=== PATIENT | female | born 1985 | race Two or more races ===

== ENCOUNTER 2024-10-13 16:29 | Inpatient (IN) | payer MEDICAID, SELFPAY ==
[2024-10-13 16:52] VITALS: BP 142/89; PULSE 79; RESP 18; TEMP 36.9; O2SAT 100; BMI 38.2
--- NOTE | 2024-10-13 17:29 | EDRME_ITS ---
Rapid Medical Screening Exam RME Arrival date/time: 10/13/24 16:29 39-year-old female presents to the emergency department today after being sent here by PCP. Patient was sent here for renal biopsy to rule out nephrotic syndrome. Patient reports history of lower extremity swelling and upper extremity swelling with proteinuria Chief Complaint: General Adult/Replaced By [facility] Complain Time Seen by Provider: 10/13/24 17:15 Vital signs: Vital Signs Temperature 98.5 F 10/13/24 16:52 Pulse Rate 79 10/13/24 16:52 Respiratory Rate 18 10/13/24 16:52 Blood Pressure 142/89 H 10/13/24 16:52 Pulse Oximetry (%) 100 10/13/24 16:52 Oxygen Delivery Method Room Air 10/13/24 16:52
[2024-10-13 17:56] LABS: Basophils # (Auto) 0.1 Thou/mm3 (0.0-0.2); Basophils % (Auto) 1 % (0-2.5); Eosinophils # (Auto) 0.3 Thou/mm3 (0.0-0.5); Eosinophils % (Auto) 3 % (0-10); Hematocrit 44.9 % (36.0-46.0); Hemoglobin 14.9 g/dL (12.0-16.0); Immature Granulocytes % (Auto) 0 % (0-0); Immature Granulocytes Auto 0.01 Thou/mm3 (0.00-0.00); Lymphocytes # (Auto) 2.6 Thou/mm3 (1.0-4.8); Lymphocytes % (Auto) 29 % (10-50); Mean Corpuscular HGB Conc 33.2 g/dl (31.0-37.0); Mean Corpuscular Hemoglobin 28.2 pg (25.0-35.0); Mean Corpuscular Volume 85 fL (80-100); Monocytes # (Auto) 0.4 Thou/mm3 (0.0-0.8); Monocytes % (Auto) 5 % (0-12); Neutrophils # (Auto) 5.8 Thou/mm3 (1.8-7.7); Neutrophils % (Auto) 63 % (37-80); Nucleated Red Blood Cell % 0 /100 WBC (0); Platelet Count 236 Thou/mm3 (140-440); Red Blood Count 5.29 Miln/mm3 (4.00-5.20); White Blood Count 9.2 Thou/mm3 (3.6-11.0)
[2024-10-13 18:13] LABS: Alanine Aminotransferase 17 U/L (10-49); Albumin, Serum 3.2 gm/dL (3.5-5.0); Albumin/Globulin Ratio 1.3 (1.2-2.2); Alkaline Phosphatase 67 U/L (46-116); Anion Gap 4 (7-16); Aspartate Amino Transferase 16 U/L (0-34); BUN/Creatinine Ratio 22 Ratio (12-20); Bilirubin,Total 0.4 mg/dL (0.3-1.2); Blood Urea Nitrogen 11 mg/dL (9-23); Calcium 8.3 mg/dL (8.3-10.6); Calcium (Corrected) 8.9 mg/dL (8.5-10.1); Carbon Dioxide 30.6 mMol/L (20.0-31.0); Chloride 104 mMol/L (98-107); Creatinine (Component) 0.5 mg/dL (0.6-1.3); Estimated Creatinine Clearance 181.1 mL/min (>60); Globulin 2.5 gm/dL (2.3-3.5); Glucose 88 mg/dL (74-106); Osmolality,Calculated 275 (275-295); Potassium 3.4 mMol/L (3.4-5.1); Sodium 139 mMol/L (136-145); Total Protein 5.7 gm/dL (5.7-8.2); eGFR > 60 See Note
[2024-10-13 18:59] LABS: Collection Type, Urine Clean Catch
--- NOTE | 2024-10-13 19:09 | PD.EDADULT ---
ED General RME/HPI General Chief complaint: General Adult/Misc Complain Stated complaint: SENT BY PMD FOR KIDNEY BIOPSY Time Seen by Provider: 10/13/24 17:15 Arrival date/time: 10/13/24 16:29 Limitations: no limitations RME / HPI RME / HPI narrative: 10/13/24 16:29 39-year-old female presents to the emergency department today after being sent here by PCP. Patient was sent here for renal biopsy to rule out nephrotic syndrome. Patient reports history of lower extremity swelling and upper extremity swelling with proteinuria Related Data Home Medications ?Medication ?Instructions ?Recorded ?Confirmed No Known Home Medications 10/14/24 10/14/24 Allergies Allergy/AdvReac Type Severity Reaction Status Date / Time No Known Allergies Allergy Verified 10/13/24 16:29 Review of Systems Constitutional Constitutional: Denies fatigue and Denies fever(s) Cardiovascular Cardiovascular: Denies chest pain and Denies dyspnea Respiratory Respiratory: Denies cough and Denies dyspnea Gastrointestinal Gastrointestinal: Denies abdominal pain and Denies vomiting Integumentary/Breasts Skin/Breast: Reports skin swelling Neurologic Neurologic: Reports as per HPI Endocrine Endocrine: Denies fatigue Past Medical History Social History SMOKING STATUS: Never smoker ED Exam General Limitations: Present no limitations General appearance: Present alert and in no apparent distress Head Head exam: Present atraumatic and normocephalic Eye Eye exam: Present normal appearance, PERRL and EOMI; Absent scleral icterus or periorbital swelling ENT ENT exam: Present normal exam, normal oropharynx and TM's normal bilaterally Neck Neck exam: Present normal inspection Chest Chest inspection: Present normal inspection and symmetric chest wall rise Respiratory Respiratory exam: Present normal lung sounds bilaterally; Absent respiratory distress Cardiovascular Cardiovascular exam: Present regular rate, +S1 and +S2 Abdominal Exam Abdominal exam: Present soft; Absent distention or tenderness Extremities Exam Extremities exam: Present normal inspection and full ROM Back Exam Back exam: Present normal inspection and full ROM Neurological Exam Neurological exam: Present alert Psychiatric Psychiatric exam: Present normal affect Skin Skin exam: Present warm, dry and normal color Course Quality Measures none Orders Category Date Time Status COVID-19 Screening Questionnaire NOW Care 10/13/24 20:33 Active Decision to Admit X1 Care 10/13/24 20:32 Completed Insert IV NOW Care 10/13/24 17:21 Active NPO after Midnight ONCE Care 10/13/24 17:53 Active Consult to Nephrology Stat Cons 10/13/24 17:[address] biopsy renal RT Stat Exams 10/13/24 17:52 Ordered CBC Stat Lab 10/13/24 17:38 Completed CMP [Comprehensive Metabolic Panel] Stat Lab 10/13/24 17:38 Completed Creatinine,Random Urine Stat Lab 10/13/24 18:47 Completed Protein Total, Random Urine Stat Lab 10/13/24 18:47 Completed Urinalysis, C/S if Indicated Stat Lab 10/13/24 18:47 Completed Vital Signs Vital signs: Vital Signs Temperature 98.5 F 10/13/24 16:52 Pulse Rate 79 10/13/24 16:52 Respiratory Rate 18 10/13/24 16:52 Blood Pressure 142/89 H 10/13/24 16:52 Pulse Oximetry (%) 100 10/13/24 16:52 Oxygen Delivery Method Room Air 10/13/24 16:52 Pulse ox 100% on room air, within normal limits. [facility] Patient data External records reviewed:: [facility] previous records Clinical information provided by:: patient Social determinants that could affect healthcare access:: none Patient has the following chronic illnesses:: Hypertension. How is presenting disease/condition affected by chronic disease/condition?: exacerbated by Evaluation data The following diagnostics were reviewed and interpreted by me:: lab results and radiology exam(s) Lab and/or radiology exams considered but not ordered:: Considered not ordered. Interpretation Summary: Proteinuria. Medications Medications considered but not ordered:: Considered not ordered. Medication administrations:: Medication Administration History Acetaminophen (Acetaminophen 325 Mg Tablet) 650 mg PO Q6H PRN PRN Reason: PAIN OR FEVER > 101 Stop: 11/12/24 20:34 Furosemide (Furosemide Inj 10 Mg/Ml Vial 2 Ml) 40 mg IVP QDAY [facility] Stop: 11/12/24 20:44 Last Admin: 10/13/24 23:00 Dose: 40 mg Documented By: DB Potassium Chloride (Kcl Ivpb) 10 meq in 100 mls @ 100 mls/hr IV Q1H [facility] Stop: 10/14/24 11:06 Ondansetron HCl (Ondansetron Inj 2 Mg/Ml Inj 2 Ml) 4 mg IV Q6H PRN; Protocol PRN Reason: NAUSEA OR VOMITING Stop: 11/12/24 20:34 Considered not ordered. Consultations Consultation(s) initiated? (list below): Yes Consultation #1 (Physician, Specialty, Details): Spoke to inpatient hospitalist team regarding patient case and need for admission for renal biopsy. Dr. Bro and team very kindly agreed to see the pt in the department. Time: 19:38 Diagnosis Differential Diagnosis ED Complaint MDM: Proteinuria Most likely diagnosis given after review of the tests above:: Proteinuria with a concern for nephrotic syndrome. Admission Indicated Admission indicated?: indicated Explain why admission is indicated or not indicated:: Admitted for renal biopsy to rule out nephrotic syndrome. Dr. Hoover is aware. Admission Request Was there a request for admission?: Yes Admission Attestation Admission request attestation: Discussed case with [] from Hospitalist service regarding admission. Discussed patients ED course, exam findings, labs, and radiology results. The Hospitalist [agrees,declines] to accept the patient for admission. Disposition Plan Disposition Plan: Admit Medical Decision Making MDM Narrative MDM Narrative: 39-year-old female with past medical history of hypertension and remote episode of nephrotic syndrome sent in by primary care for renal biopsy given concern for recurrence of her nephrotic syndrome. Vital signs stable. Moiz Le NP discussed this case with Dr. Hoover who requested the patient be admitted to be evaluated tomorrow by her team. Labs were ordered which were significant for proteinuria and increased creatinine clearance. Patient seen in the department by inpatient hospitalist team and kindly admitted by Dr. Bro with pending CT guided renal biopsy. Pt stable at time of admission. Differential Diagnosis Differential Diagnosis: Proteinuria Lab Data 10/14/24 04:48 10/14/24 04:48 Labs: Lab Results 10/13/24 10/13/24 Range/Units 17:38 18:47 WBC 9.2 (3.6-11.0) Thou/mm3 RBC 5.29 H (4.00-5.20) Miln/mm3 Hgb 14.9 (12.0-16.0) g/dL Hct 44.9 (36.0-46.0) % MCV 85 (80-100) fL MCH 28.2 (25.0-35.0) pg MCHC 33.2 (31.0-37.0) g/dl RDW Std Deviation 42.0 (36.4-46.3) fL Plt Count 236 D (140-440) Thou/mm3 Neut % (Auto) 63 (37-80) % Lymph % (Auto) 29 (10-50) % [place] % (Auto) 5 (0-12) % Eos % (Auto) 3 (0-10) % Baso % (Auto) 1 (0-2.5) % Neut # (Auto) 5.8 (1.8-7.7) Thou/mm3 Lymph # (Auto) 2.6 (1.0-4.8) Thou/mm3 [place] # (Auto) 0.4 (0.0-0.8) Thou/mm3 Eos # (Auto) 0.3 (0.0-0.5) Thou/mm3 Baso # (Auto) 0.1 (0.0-0.2) Thou/mm3 Immature Gran # (Auto) 0.01 H (0.00-0.00) Thou/mm3 Absolute Nucleated RBC 0.00 (0.00-0.00) Thou/mm3 Immature Gran % 0 (0-0) % Nucleated RBC % 0 (0) /100 WBC PT 10.7 (9.0-12.2) Seconds INR 1.0 (0.9-1.3) Sodium 139 (136-145) mMol/L Potassium 3.4 (3.4-5.1) mMol/L Chloride 104 (98-107) mMol/L Carbon Dioxide 30.6 (20.0-31.0) mMol/L Anion Gap 4 L (7-16) BUN 11 (9-23) mg/dL Creatinine 0.5 L (0.6-1.3) mg/dL Estim Creat Clear Calc 181.1 (>60) mL/min eGFR > 60 (60 - ) See Note BUN/Creatinine Ratio 22 H (12-20) Ratio Glucose 88 (74-106) mg/dL Calculated Osmolality 275 (275-295) Calcium 8.3 (8.3-10.6) mg/dL Corrected Calcium 8.9 (8.5-10.1) mg/dL Total Bilirubin 0.4 (0.3-1.2) mg/dL AST 16 (0-34) U/L ALT 17 (10-49) U/L Alkaline Phosphatase 67 (46-116) U/L Total Protein 5.7 (5.7-8.2) gm/dL Albumin 3.2 L (3.5-5.0) gm/dL Globulin 2.5 (2.3-3.5) gm/dL Albumin/Globulin Ratio 1.3 (1.2-2.2) Ur Collection Type Clean Catch Urine Color Yellow (Lt Yel-Yel) Urine Clarity Clear (Clear/Hazy) Urine pH 7.0 (5.0-7.0) Ur Specific [place] 1.038 H (1.001-1.035) Urine Protein 3+ A (Neg - Trace) Urine Glucose (UA) Negative (Negative) Urine Ketones Negative (Negative) Urine Blood 1+ A (Negative) Urine Nitrite Negative (Negative) Urine Bilirubin Negative (Negative) Urine Urobilinogen (Auto) 2.0 (0.0-1.0) mg/dL Ur Leukocyte Esterase Negative (Negative) Urine RBC 4 H (0-3) /hpf Urine WBC 5 (0-5) /hpf Ur Squamous Epith Cells 4 (0-5) /hpf Triple Phos Crystals 2+ A (None) Urine Bacteria None (None) Hyaline Casts < 1 (0-1) /hpf Ur Culture Indicated? Not Indicated Ur Random Creatinine 177 H (30-125) mg/dL U Random Total Protein 1601 H (1-14) mg/dL Hepatitis A IgM Ab Non Reactive (Non React) Hep Bs Antigen Non Reactive (Non React) Hep B Core IgM Ab Non Reactive (Non React) Hepatitis C Antibody Non Reactive (Non React) Discharge Plan Plan Patient Disposition: Admit Acute Care w/in Hospital Disposition Comment: stable Problem List Clinical Impression: Protein in urine Patient/Caregiver Discharge Instructions Other Activity Instructions:: admitted to Dr. Dieudonne GUTIERREZ/RAMY Supervising Physician MATT/RAMY Supervising Physician: Dr. Simon
[2024-10-13 19:27] LABS: Bilirubin,Urine Negative (Negative); Blood,Urine 1+ (Negative); Clarity,Urine Clear (Clear/Hazy); Color,Urine Yellow (Lt Yel-Yel); Culture Indicated,Urine Not Indicated; Glucose, Urine Negative (Negative); Hyaline Casts,Urine < 1 /hpf (0-1); Ketones,Urine Negative (Negative); Leukocyte Esterase,Urine Negative (Negative); Nitrite,Urine Negative (Negative); Protein,Urine 3+ (Neg - Trace); RBC,Urine 4 /hpf (0-3); Specific Gravity,Urine 1.038 (1.001-1.035); Squamous Epithelial Cell,Urine 4 /hpf (0-5); Triple Phosphate Crystal,Urine 2+; WBC,Urine 5 /hpf (0-5)
[2024-10-13 19:38] LABS: Protein Total, Random Urine 1601 mg/dL (1-14)
[2024-10-13 19:43] LABS: Creatinine,Random Urine 177 mg/dL (30-125)
--- NOTE | 2024-10-13 21:18 | ESHP_ITS ---
<Statement entered by Landon Bro MD - 10/14/24 09:49> I was present for the essential components of the history, physical examination, diagnosis, and treatment plan with the resident. I have reviewed the documentation, discussed the case with the resident and agree with the patient's care as documented by the resident. Landon Bro MD Documentation for date of: 10/13/24 HPI History of Present Illness History of present illness: 39-year-old female without past medical history was presented to ED after being sent by PCP. Patient stated that about a week ago she presented to [facility] ED, with a chief complaints of generalized swelling, mainly bilateral lower edema and facial swelling, was given some medication, and discharged home to follow-up outpatient with PCP. Over a week her symptoms progressively got worse, she also developed a weakness, the swelling was affecting her daily activities leading her to present to clinic. Patient PCP is Dr. Candis Patrick, ordered labs and it appeared that patient had a nephrotic syndrome. Patient was urgently referred to ED, to be evaluated by Dr. Hoover and have kidney biopsy done. In presentation patient was hemodynamically stable, BP was slightly elevated 142/89, CBC unremarkable, CMP revealed hypoalbuminemia with albumin of 3.2, urinalysis revealed 3+ proteinuria, RBCs, triple Phos crystals, random creatinine was 177, urine random total protein was 1601. Otherwise patient denied any recent sick contact, any usual medication use, any recent upper respiratory infection, denies any hematuria, dysuria, chest pain, palpitation, nausea, vomiting, diarrhea, or any other associated symptoms. Patient denies any unusual skin rashes, any joint pain, deformation, or any other symptoms that associated with autoimmune diseases. PMH none PSH cholecystectomy Allergies none Meds none however patient was prescribed atorvastatin and lisinopril today, was not taking yet Social history denies alcohol, smoking, any recreational drug use Family history unremarkable Review of Systems Review of Systems Systems Reviewed: All systems reviewed, normal except as documented Exam Vital Signs Temp Pulse Resp BP Pulse Ox O2 Del Method 98.5 F 79 18 142/89 H 100 Room Air 10/13/24 16:52 10/13/24 16:52 10/13/24 16:52 10/13/24 16:52 10/13/24 16:52 10/13/24 16:52 Narrative Exam GENERAL: no acute distress, AAO x3, obese. HEENT: Head AT/ NC. Mucous membranes moist.mild periorbital edema NECK: Supple, no lymphadenopathy, no carotid bruits. CARDIOVASCULAR: RRR. Normal S1/S2, No m/r/g. 3+ pitting edema of bilateral LEs. RESPIRATORY: CTAB. No wheezing, rhonchi, crackles. GASTROINTESTINAL: Abdomen soft, non tender no palpable masses. Bowel sounds present in all 4 quadrants. MUSCULOSKELETAL:? No cyanosis or edema, no visible joint swelling. NEUROLOGICAL: CN II-XII grossly intact. No focal deficits. Sensation intact, symmetric. PSYCHIATRIC: Awake and alert, not agitated, normal mood and affect. INTEGUMENTARY: No obvious rashes, no jaundice, normal turgor. Results: Labs 10/13/24 17:38 10/13/24 17:38 Labs: Short CBC 10/13/24 Range/Units 17:38 WBC 9.2 (3.6-11.0) Thou/mm3 Hgb 14.9 (12.0-16.0) g/dL Hct 44.9 (36.0-46.0) % Plt Count 236 D (140-440) Thou/mm3 BMP 10/13/24 17:38 Sodium 139 Potassium 3.4 Chloride 104 Carbon Dioxide 30.6 BUN 11 Creatinine 0.5 L Glucose 88 Calcium 8.3 Liver Function 10/13/24 Range/Units 17:38 Total Bilirubin 0.4 (0.3-1.2) mg/dL AST 16 (0-34) U/L ALT 17 (10-49) U/L Alkaline Phosphatase 67 (46-116) U/L Albumin 3.2 L (3.5-5.0) gm/dL Urine 10/13/24 Range/Units 18:47 Urine Color Yellow (Lt Yel-Yel) Urine Clarity Clear (Clear/Hazy) Urine pH 7.0 (5.0-7.0) Ur Specific Tony 1.038 H (1.001-1.035) Urine Protein 3+ A (Neg - Trace) Urine Glucose (UA) Negative (Negative) Quality Measures Quality Measures none Medications Home Medications and Allergies Home Medications ?Medication ?Instructions ?Recorded ?Confirmed ?Type No Known Home Medications 10/14/24 10/14/24 History Allergies Allergy/AdvReac Type Severity Reaction Status Date / Time No Known Allergies Allergy Verified 10/13/24 16:29 Visit Medications Acetaminophen (Acetaminophen 325 Mg Tablet) 650 mg PO Q6H PRN PRN Reason: PAIN OR FEVER > 101 Stop: 11/12/24 20:34 Furosemide (Furosemide Inj 10 Mg/Ml Vial 2 Ml) 40 mg IVP QDAY [facility] Stop: 11/12/24 20:44 Ondansetron HCl (Ondansetron Inj 2 Mg/Ml Inj 2 Ml) 4 mg IV Q6H PRN; Protocol PRN Reason: NAUSEA OR VOMITING Stop: 11/12/24 20:34 Assessment & Plan Plan 39-year-old female without significant past medical history was admitted for anasarca/nephrotic syndrome management and treatment, requiring kidney biopsy #Anasarca #Concern for nephrotic syndrome Patient presented with chief complaints of periorbital and lower extremity edema that was progressively getting worse She was seen by PCP today, outpatient labs revealed significant proteinuria, PCP started on lisinopril, atorvastatin, and referred patient to ED to be evaluated by nephrology and have a kidney biopsy done Urinalysis revealed specific gravity of 1038, proteinuria 3+, urine random creatinine 177, urine random total protein 1600 -Patient started on Lasix 40 mg IV daily -N.p.o. for now -Kidney ultrasound -CT-guided biopsy renal -Follow autoimmune panel -f/u with hepatitis panel -lipid panel -TSH -Dr. Hoover is on board, recommendations appreciated Disposition: MedSurg DVT prophylaxis: SCDs, pending biopsy GI prophylaxis: None Diet: N.p.o. pending biopsy Lines: PIV CODE STATUS:Full code Patient care was discussed with attending physician Dr. Dieudonne Hooper MD PGY-2
--- NOTE | 2024-10-13 21:52 | XR_ITS ---
Examination: Retroperitoneal ultrasound, complete Technique: Multiple high resolution grayscale images of the retroperitoneum obtained, including kidneys and bladder. Exam date and time:October 13, 2024 1006 hrs. Indications: Abnormal proteinuria on laboratory examination this week Findings: Right kidney 12.5 x 6.2 x 6.9 cm cortex 2.4 cm Left kidney 12.9 x 6.5 x 6.4 cm cortex 1.8 cm Moderate bilateral renal parenchymal scar formation No hydronephrosis or renal calculi No bladder mass or bladder calculi Contracted urinary bladder 41 cc Impression: Moderate bilateral renal parenchymal scar formation, no hydronephrosis
[2024-10-13 21:56] VITALS: BP 129/85; PULSE 84; RESP 19; TEMP 36.6; O2SAT 97
[2024-10-13 22:37] LABS: Prothrombin Time 10.7 Seconds (9.0-12.2)
[2024-10-13 23:00] VITALS: BP 133/84; PULSE 81
[2024-10-13] MEDS: FUROSEMIDE INJ 10 MG/ML VIAL 2 ML 40 MG IVP (23:00)
[2024-10-14] VITALS (15 sets, daily range): BP systolic 100–129; BP diastolic 59–92; PULSE 71–107; RESP 11–98; TEMP 36.3–36.9; O2SAT 95–100; BMI 40.8
[2024-10-14 00:08] LABS: Hepatitis A Antibody IgM Non Reactive (Non React); Hepatitis B Core Antibody IgM Non Reactive (Non React); Hepatitis B Surface Antigen Non Reactive (Non React); Hepatitis C Antibody Non Reactive (Non React)
--- NOTE | 2024-10-14 02:26 | PC.NURSE ---
When doing patient's med reconciliation patient stated to nurse that she does not take lisinopril, atorvastatin and aspirin.
[2024-10-14 05:59] LABS: Basophils # (Auto) 0.1 Thou/mm3 (0.0-0.2); Basophils % (Auto) 1 % (0-2.5); Eosinophils # (Auto) 0.3 Thou/mm3 (0.0-0.5); Eosinophils % (Auto) 4 % (0-10); Hematocrit 37.7 % (36.0-46.0); Hemoglobin 12.5 g/dL (12.0-16.0); Immature Granulocytes % (Auto) 0 % (0-0); Immature Granulocytes Auto 0.03 Thou/mm3 (0.00-0.00); Lymphocytes # (Auto) 3.1 Thou/mm3 (1.0-4.8); Lymphocytes % (Auto) 38 % (10-50); Mean Corpuscular HGB Conc 33.2 g/dl (31.0-37.0); Mean Corpuscular Hemoglobin 28.2 pg (25.0-35.0); Mean Corpuscular Volume 85 fL (80-100); Monocytes # (Auto) 0.4 Thou/mm3 (0.0-0.8); Monocytes % (Auto) 5 % (0-12); Neutrophils # (Auto) 4.2 Thou/mm3 (1.8-7.7); Neutrophils % (Auto) 51 % (37-80); Nucleated Red Blood Cell % 0 /100 WBC (0); Platelet Count 176 Thou/mm3 (140-440); RDW Standard Deviation 41.9 fL (36.4-46.3); Red Blood Count 4.43 Miln/mm3 (4.00-5.20); White Blood Count 8.1 Thou/mm3 (3.6-11.0)
[2024-10-14 06:17] LABS: Partial Thromboplastin Time 26.9 Seconds (22.0-36.0)
[2024-10-14 06:36] LABS: Alanine Aminotransferase 11 U/L (10-49); Albumin, Serum 2.5 gm/dL (3.5-5.0); Albumin/Globulin Ratio 1.3 (1.2-2.2); Alkaline Phosphatase 49 U/L (46-116); Anion Gap 6 (7-16); Aspartate Amino Transferase 12 U/L (0-34); BUN/Creatinine Ratio 22 Ratio (12-20); Bilirubin,Total 0.4 mg/dL (0.3-1.2); Blood Urea Nitrogen 11 mg/dL (9-23); Calcium 7.6 mg/dL (8.3-10.6); Calcium (Corrected) 8.8 mg/dL (8.5-10.1); Carbon Dioxide 26.6 mMol/L (20.0-31.0); Cardiac Risk Estimate 4.9 RATIO (3.7-5.6); Chloride 105 mMol/L (98-107); Cholesterol 300 mg/dL (132-200); Creatinine (Component) 0.5 mg/dL (0.6-1.3); Estimated Creatinine Clearance 187.8 mL/min (>60); Glucose 91 mg/dL (74-106); HDL Cholesterol 61 mg/dL (40-60); LDL Cholesterol,Calculated 200 mg/dL (0-130); Magnesium 1.7 mg/dL (1.6-2.6); Osmolality,Calculated 275 (275-295); Potassium 3.2 mMol/L (3.4-5.1); Sodium 138 mMol/L (136-145); Thyroid Stimulating Hormone 5.28 uIU/mL (0.55-4.78); Total Protein 4.5 gm/dL (5.7-8.2); Triglycerides 197 mg/dL (30-150); eGFR > 60 See Note
[2024-10-14] MEDS: POTASSIUM CHL 10 mEq IVPB 10 MEQ/100 ML BAG 100 MEQ IV ×4 (08:00→13:11)
[2024-10-14] MEDS: FUROSEMIDE INJ 10 MG/ML VIAL 2 ML 40 MG IVP (08:07)
--- NOTE | 2024-10-14 10:00 | XR_ITS ---
Examination: CT-guided percutaneous medical renal biopsy lower pole right kidney CT abdomen without intravenous contrast Date and time of procedure: October 14, 2024 1101 hours INDICATIONS: Renal failure, nephrotic syndrome on laboratory examination this week Informed consent provided. A timeout was completed verifying correct patient, procedure, site and positioning. Technique: Axial 3 mm sections were obtained for localization of the lower pole right kidney Appropriate area is marked. The patient's site was prepped and draped in sterile fashion Maximal sterile barrier technique utilized, including hand hygiene Local anesthesia was obtained with 1% lidocaine. Low dose protocols were performed. One or more of the following dose reduction techniques were used; automated exposure control, adjustment of the mA and/or KV according to patient size, use of iterative reconstruction technique. Utilizing CT fluoroscopic guidance 2 core biopsies obtained of the lower pole right kidney Estimated blood loss 5 cc Patient appears in stable condition during this procedure. At completion of the procedure, the patient is in satisfactory condition. Complete pathology report to follow. Impression: Successful CT-guided percutaneous medical renal biopsy lower pole right kidney
--- NOTE | 2024-10-14 10:03 | PC.SS ---
Patient Madhavi Anand is a 39 Year old female admitted for Anasarca. Patient reports she lives at home with life partner Flakito Fierro who she reports his her surrogate decision maker [phone]. Patient does not utilize any source of DME. Patients PCP is Candis Penny. Patient's pharmacy of choice is [facility] in [place]. Patient reports at time of discharge she will return back home. Family will provide transportation. Next of Kin: PCP: Candis Penny
--- NOTE | 2024-10-14 10:37 | PC.NURSE ---
Had to pause potassium patient getting kidney biopsy
[2024-10-14 10:52] LABS: HCG Qualitative,Urine Negative
[2024-10-14] MEDS: fentaNYL CIT INJ 50 mCg/ML AMP 2ML 100 MCG IVP (11:15)
--- NOTE | 2024-10-14 11:22 | ESPR_ITS ---
<Statement entered by Gisselle Hansen MD - 10/16/24 17:39> Attending attestation: I reviewed above note and agree with findings and plans. I have also personally examined the patient with medicine team and went over assessment and plan with medical team including fall intern and resident physician. <Statement entered by Raúl Jarvis MD - 10/14/24 18:30> Senior Resident Attestation: I supervised/discussed management plan with fall intern physician Dr. Benton, and was involved in the care of this patient. I personally saw and examined the patient and discussed the assessment and plan with the entire medicine team, including my attending. I agree with the assessment and plan as documented. Patient's care was discussed with attending physician, Dr. Hansen. Raúl Jarvis MD PGY-2. Documentation for date of: 10/14/24 Subjective Subjective Interval history: Patient seen at bedside this morning. No overnight events. Patient states she is feeling well. She had a renal biopsy today (Right) and does not have any complaints at this time. Exam Vital Signs Temp Pulse Resp BP Pulse Ox O2 Del Method 97.4 F 73 11 L 103/68 100 Room Air 10/14/24 09:53 10/14/24 09:53 10/14/24 09:53 10/14/24 09:53 10/14/24 09:53 10/14/24 09:53 Narrative Exam General: A/O x3, no acute distress Eyes: PERRL, EOMI. Anicteric, vision grossly intact. Ears: No ear pain, no ear discharge, Hearing grossly intact. Nose: No nasal discharge. Mouth/Throat: Dry mucous membranes, no redness, no lesions. Neck: Neck supple, non-tender, no cervical lymphadenopathy. Lungs: Clear ADDIS to auscultation and percussion, No accessory muscle use. Cardio: Normal S1/S2, regular rhythm, no murmurs, no JVD Abdomen: Soft, non-tender, no palpable masses, peristalsis present, no guarding or rebound. Extremities: Symmetrical, no significant deformities, 1+ peripheral edema , non-tender, peripheral pulses presents. Skin: No rashes, no lesions, warm to touch. Clean dressing over R renal biopsy site. Neuro: No focal neurological deficits. motor and sensory intact Psych: Cooperative, appropriate mood and effect. Objective Labs 10/14/24 04:48 10/14/24 04:48 Labs: Laboratory Results - last 24 hr 10/13/24 10/13/24 10/14/24 17:38 18:47 04:48 WBC 9.2 8.1 RBC 5.29 H 4.43 Hgb 14.9 12.5 D Hct 44.9 37.7 MCV 85 85 MCH 28.2 28.2 MCHC 33.2 33.2 RDW Std Deviation 42.0 41.9 Plt Count 236 D 176 D Neut % (Auto) 63 51 Lymph % (Auto) 29 38 [place] % (Auto) 5 5 Eos % (Auto) 3 4 Baso % (Auto) 1 1 Neut # (Auto) 5.8 4.2 Lymph # (Auto) 2.6 3.1 [place] # (Auto) 0.4 0.4 Eos # (Auto) 0.3 0.3 Baso # (Auto) 0.1 0.1 Immature Gran # (Auto) 0.01 H 0.03 H Absolute Nucleated RBC 0.00 0.00 Immature Gran % 0 0 Nucleated RBC % 0 0 PT 10.7 INR 1.0 APTT 26.9 Sodium 139 138 Potassium 3.4 3.2 L Chloride 104 105 Carbon Dioxide 30.6 26.6 Anion Gap 4 L 6 L BUN 11 11 Creatinine 0.5 L 0.5 L Estim Creat Clear Calc 181.1 187.8 eGFR > 60 > 60 BUN/Creatinine Ratio 22 H 22 H Glucose 88 91 Calculated Osmolality 275 275 Calcium 8.3 7.6 L Corrected Calcium 8.9 8.8 Phosphorus 4.0 Magnesium 1.7 Total Bilirubin 0.4 0.4 AST 16 12 ALT 17 11 Alkaline Phosphatase 67 49 D Total Protein 5.7 4.5 L Albumin 3.2 L 2.5 L D Globulin 2.5 2.0 L Albumin/Globulin Ratio 1.3 1.3 Triglycerides 197 H Cholesterol 300 H LDL Cholesterol, Calc 200 H HDL Cholesterol 61 H Cholesterol/HDL Ratio 4.9 TSH 5.28 H Ur Collection Type Clean Catch Urine Color Yellow Urine Clarity Clear Urine pH 7.0 Ur Specific [place] 1.038 H Urine Protein 3+ A Urine Glucose (UA) Negative Urine Ketones Negative Urine Blood 1+ A Urine Nitrite Negative Urine Bilirubin Negative Urine Urobilinogen (Auto) 2.0 Ur Leukocyte Esterase Negative Urine RBC 4 H Urine WBC 5 Ur Squamous Epith Cells 4 Triple Phos Crystals 2+ A Urine Bacteria None Hyaline Casts < 1 Ur Culture Indicated? Not Indicated Ur Random Creatinine 177 H U Random Total Protein 1601 H Urine HCG, Qual Hepatitis A IgM Ab Non Reactive Hep Bs Antigen Non Reactive Hep B Core IgM Ab Non Reactive Hepatitis C Antibody Non Reactive 10/14/24 10:40 WBC RBC Hgb Hct MCV MCH MCHC RDW Std Deviation Plt Count Neut % (Auto) Lymph % (Auto) [place] % (Auto) Eos % (Auto) Baso % (Auto) Neut # (Auto) Lymph # (Auto) [place] # (Auto) Eos # (Auto) Baso # (Auto) Immature Gran # (Auto) Absolute Nucleated RBC Immature Gran % Nucleated RBC % PT INR APTT Sodium Potassium Chloride Carbon Dioxide Anion Gap BUN Creatinine Estim Creat Clear Calc eGFR BUN/Creatinine Ratio Glucose Calculated Osmolality Calcium Corrected Calcium Phosphorus Magnesium Total Bilirubin AST ALT Alkaline Phosphatase Total Protein Albumin Globulin Albumin/Globulin Ratio Triglycerides Cholesterol LDL Cholesterol, Calc HDL Cholesterol Cholesterol/HDL Ratio TSH Ur Collection Type Urine Color Urine Clarity Urine pH Ur Specific [place] Urine Protein Urine Glucose (UA) Urine Ketones Urine Blood Urine Nitrite Urine Bilirubin Urine Urobilinogen (Auto) Ur Leukocyte Esterase Urine RBC Urine WBC Ur Squamous Epith Cells Triple Phos Crystals Urine Bacteria Hyaline Casts Ur Culture Indicated? Ur Random Creatinine U Random Total Protein Urine HCG, Qual Negative Hepatitis A IgM Ab Hep Bs Antigen Hep B Core IgM Ab Hepatitis C Antibody Quality Measures Quality Measures none Assessment & Plan Assessment Current Active Medications: Generic Name Dose Route Start Last Admin Trade Name Freq PRN Reason Stop Dose Admin Acetaminophen 650 mg 10/13/24 20:35 Acetaminophen 325 Mg Tablet PO 11/12/24 20:34 Q6H PRN PAIN OR FEVER > 101 Furosemide 40 mg 10/13/24 20:45 10/14/24 08:07 Furosemide Inj 10 Mg/Ml Vial 2 Ml IVP 11/12/24 20:44 40 mg QDAY JOSE Administration Ondansetron HCl 4 mg 10/13/24 20:35 Ondansetron Inj 2 Mg/Ml Inj 2 Ml IV 11/12/24 20:34 Q6H PRN NAUSEA OR VOMITING Protocol Plan 39-year-old female with no relevant past medical history was admitted to the hospital on 10/13/2024 for anasarca and possible nephrotic syndrome as well as need for kidney biopsy. #Anasarca #Nephrotic syndrome? 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 ? 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 ?Initial UA showed 3+ protein ?Urine random total protein was 1601 ?Patient's triglycerides are 197, cholesterol 300, LDL 200, HDL 61 Plan: ?Pending kidney biopsy results -pending autoimmune work up ?Nephrology consulted, appreciate recommendations ?Holding chemical prophylaxis for DVT as patient got renal biopsy today and there is increase of bleeding. -Upon DC will need statin, aspirin, and ARB ?Will continue to monitor #Hypokalemia ?Patient's potassium was 3.2 Plan: ?IV potassium 20 mEq ?Will replete as necessary ?Will continue to monitor #Elevated TSH ?Most likely sick thyroid versus hypothyroidism Plan: ?Free T4 for a.m. draw ?Will continue to monitor Disposition: Patient Seen in med surg got renal biopsy, observing for 24 hrs to make sure there is no bleed. Diet: Renal GI prophylaxis: not indicated DVT prophylaxis: SCDs Code: FULL Case disclosed with Attending Dr. Hansen and My senior Dr. Jarvis PGY2. Eulalio Ferguson PGY1
--- NOTE | 2024-10-14 11:45 | PC.NURSE ---
Patient transferred back to [facility] via [facility]. Report given to Marcy KURTZ. Dressing clean, dry, and intact.
[2024-10-14] MEDS: ACETAMINOPHEN 325 MG TABLET 650 MG PO (13:15)
--- NOTE | 2024-10-14 15:14 | ESCONSULT_ITS ---
HPI Data of Consult Consult date: 10/14/24 Requesting Physician: Gwen Hooper MD Admitting Provider: Gwen Hooper MD Attending Provider: Audra Hoover MD Primary Care Provider: RAMY Wilde Consult Narrative Reason for consult: Proteinuria, nephrotic syndrome History of present illness: Ms. Anand is a 39-year-old female without past medical history was presented to ED after being sent by PCP(Shazia ORTEGA - Samira Gabriel) patient stated that about a week ago she presented to [facility] ED, with a chief complaints of generalized swelling, mainly bilateral lower edema and facial swelling, was given some medication, and discharged home to follow-up outpatient with PCP. Over a week her symptoms progressively got worse, she also developed a weakness, the swelling was affecting her daily activities leading her to present to clinic. Patient PCP is Dr. Candis Penny, ordered labs and it appeared that patient had a nephrotic syndrome. Patient was urgently referred to ED, to be evaluated by Dr. Hoover and have kidney biopsy done. Patient recalls that at the age of 8 she had some kind of kidney impairment/proteinuria-had kidney biopsy at [facility]. Biopsy report not available. Was given some medication and resolved. On presentation patient was hemodynamically stable, BP was slightly elevated 142/89, CBC unremarkable, CMP revealed hypoalbuminemia with albumin of 3.2, urinalysis revealed 3+ proteinuria, RBCs, triple Phos crystals, random creatinine was 177, urine random total protein was 1601. Otherwise patient denied any recent sick contact, any usual medication use, any recent upper respiratory infection, denies any hematuria, dysuria, chest pain, palpitation, nausea, vomiting, diarrhea, or any other associated symptoms. Patient denies any unusual skin rashes, any joint pain, deformation, or any other symptoms that associated with autoimmune diseases. Nephrology consulted for nephrotic syndrome. Patient examined on the floors, resting comfortably. Patient kept NPO for kidney biopsy. Sodium 138, potassium 3.2 (40 mEq repleated), bicarb 26.6, BUN11, creatinine 0.5, eGFR >60. Biopsy performed without incident, patient started on renal diet. Patient stated she had some condition causing protein in the urine when she was young, self-resolved at age 19. Started aspirin and atorvastatin, will discuss starting ACEi tomorrow. cc:: cc: Gwen Hooper MD Review of Systems Review of Systems Systems Reviewed: All systems reviewed, normal except as documented Exam Vital Signs Temp Pulse Resp BP Pulse Ox O2 Del Method O2 Flow Rate 97.6 F 80 16 124/77 97 Room Air 3 10/14/24 12:00 10/14/24 12:00 10/14/24 12:00 10/14/24 12:00 10/14/24 12:00 10/14/24 12:00 10/14/24 11:26 Narrative Exam PE: Gen: Well-developed and well-nourished. HEENT: NCAT, PERRLA, EOMI, MMM, anicteric conjunctivae. CVS: normal S1 and S2. RRR. No M/R/G. Resp: CTA B/L. No rhonchi, rales, crackles or wheezing. Abd: soft, non-tender, non-distended. MSK: Good ROM in BUE & BLE. Anasarca. Neuro: CN II-XII grossly intact. Strength 5/5 in BUE & BLE. Alert and oriented x3. Psych: appropriate mood and affect. Results Labs 10/14/24 04:48 10/14/24 04:48 Labs: Short CBC 10/13/24 10/14/24 Range/Units 17:38 04:48 WBC 9.2 8.1 (3.6-11.0) Thou/mm3 Hgb 14.9 12.5 D (12.0-16.0) g/dL Hct 44.9 37.7 (36.0-46.0) % Plt Count 236 D 176 D (140-440) Thou/mm3 BMP 10/13/24 10/14/24 17:38 04:48 Sodium 139 138 Potassium 3.4 3.2 L Chloride 104 105 Carbon Dioxide 30.6 26.6 BUN 11 11 Creatinine 0.5 L 0.5 L Glucose 88 91 Calcium 8.3 7.6 L Liver Function 10/13/24 10/14/24 Range/Units 17:38 04:48 Total Bilirubin 0.4 0.4 (0.3-1.2) mg/dL AST 16 12 (0-34) U/L ALT 17 11 (10-49) U/L Alkaline Phosphatase 67 49 D (46-116) U/L Albumin 3.2 L 2.5 L D (3.5-5.0) gm/dL Urine 10/13/24 Range/Units 18:47 Urine Color Yellow (Lt Yel-Yel) Urine Clarity Clear (Clear/Hazy) Urine pH 7.0 (5.0-7.0) Ur Specific [place] 1.038 H (1.001-1.035) Urine Protein 3+ A (Neg - Trace) Urine Glucose (UA) Negative (Negative) Quality Measures Quality Measures VTE prophylaxis Medications Home Medications and Allergies Home Medications ?Medication ?Instructions ?Recorded ?Confirmed ?Type No Known Home Medications 10/14/24 10/14/24 History Allergies Allergy/AdvReac Type Severity Reaction Status Date / Time No Known Allergies Allergy Verified 10/13/24 16:29 Visit Medications Acetaminophen (Acetaminophen 325 Mg Tablet) 650 mg PO Q6H PRN PRN Reason: PAIN OR FEVER > 101 Stop: 11/12/24 20:34 Last Admin: 10/14/24 13:15 Dose: 650 mg Aspirin (Aspirin Ec 81 Mg Tabec) 81 mg PO QDAY JOSE Stop: 11/14/24 08:59 Atorvastatin Calcium (Atorvastatin Calcium 20 Mg Tablet) 80 mg PO HS JOSE Stop: 11/13/24 20:59 Furosemide (Furosemide Inj 10 Mg/Ml Vial 2 Ml) 40 mg IVP QDAY JOSE Stop: 11/12/24 20:44 Last Admin: 10/14/24 08:07 Dose: 40 mg Ondansetron HCl (Ondansetron Inj 2 Mg/Ml Inj 2 Ml) 4 mg IV Q6H PRN; Protocol PRN Reason: NAUSEA OR VOMITING Stop: 11/12/24 20:34 Discontinued Medications Fentanyl Citrate (Fentanyl Cit Inj 50 Mcg/Ml Amp 2ml) 100 mcg IVP X1 ONE Stop: 10/14/24 11:16 Last Admin: 10/14/24 11:15 Dose: 100 mcg Potassium Chloride (Kcl Ivpb) 10 meq in 100 mls @ 100 mls/hr IV Q1H JOSE Stop: 10/14/24 11:06 Last Admin: 10/14/24 13:11 Dose: 100 mls/hr Assessment & Plan Plan 39-year-old female without past medical history was presented to ED after being sent by PCP, admitted for anasarca and suspected nephrotic syndrome. # Proteinuria with nephrotic range proteinuria/hyperlipidemia, edema, hypoalbuminemia consistent with nephrotic syndrome-suspect minimal-change versus focal segmental glomerulosclerosis. Patient presented with progressive swelling. Urine labs showed: creatinine 177, total protein 1601. Protein/creatinine ratio 9.07 g serum albumin 2.5. Kidney function normal. Renal US showed moderate bilateral renal parenchymal scarring. Renal biopsy performed without issue. Plan: -avoid nephrotoxic medications -Aspirin 81mg PO qDaily -Atorvastatin 80mg PO HS -Will discuss starting lisinopril -monitor daily labs -likely discharge tomorrow # Hyperlipidemia # Anasarca # Hypoalbuminemia Patient with nephrotic syndrome as high risk of coagulopathy. Add aspirin, NESS inhibitor's, high intensity statins. DVT prophylaxis: SCDs GI prophylaxis: None Diet: Renal Lines: Peripheral IV Code status: Full Code Thank you for allowing me to participate in the care of this patient. Plan of care discussed with attending Dr. Hoover. Bang Joy MD PGY-1 Attending Provider Attestation/Addendum patient seen and examined with resident physician Dr. Joy. Note reviewed, agree with findings and recommendations with changes made. Patient with nephrotic syndrome-differential diagnosis of minimal-change versus focal segmental glomerosclerosis. Serology pending. Patient had a kidney biopsy. Did talk to Dr. Quinones at [id number] get stat biopsy report tomorrow. Pending results will consider adding steroids. Thank you Dr. Hansen for allowing me to participate in the care of Ms. Anand
[2024-10-14] MEDS: ATORVASTATIN CALCIUM 20 MG TABLET 80 MG PO (20:57)
[2024-10-15] VITALS (7 sets, daily range): BP systolic 96–124; BP diastolic 64–86; PULSE 65–92; RESP 18–98; TEMP 36.1–36.5; O2SAT 98–99
[2024-10-15 05:51] LABS: Basophils % (Auto) 1 % (0-2.5); Eosinophils # (Auto) 0.3 Thou/mm3 (0.0-0.5); Eosinophils % (Auto) 4 % (0-10); Hematocrit 36.2 % (36.0-46.0); Immature Granulocytes % (Auto) 0 % (0-0); Immature Granulocytes Auto 0.02 Thou/mm3 (0.00-0.00); Lymphocytes # (Auto) 2.4 Thou/mm3 (1.0-4.8); Lymphocytes % (Auto) 41 % (10-50); Mean Corpuscular HGB Conc 33.1 g/dl (31.0-37.0); Mean Corpuscular Hemoglobin 28.4 pg (25.0-35.0); Mean Corpuscular Volume 86 fL (80-100); Monocytes # (Auto) 0.4 Thou/mm3 (0.0-0.8); Monocytes % (Auto) 6 % (0-12); Neutrophils # (Auto) 2.8 Thou/mm3 (1.8-7.7); Neutrophils % (Auto) 48 % (37-80); Nucleated Red Blood Cell % 0 /100 WBC (0); Platelet Count 156 Thou/mm3 (140-440); RDW Standard Deviation 42.1 fL (36.4-46.3); Red Blood Count 4.23 Miln/mm3 (4.00-5.20); White Blood Count 5.9 Thou/mm3 (3.6-11.0)
[2024-10-15 06:33] LABS: Alanine Aminotransferase 10 U/L (10-49); Albumin, Serum 2.5 gm/dL (3.5-5.0); Albumin/Globulin Ratio 1.3 (1.2-2.2); Alkaline Phosphatase 47 U/L (46-116); Anion Gap 4 (7-16); Aspartate Amino Transferase 14 U/L (0-34); BUN/Creatinine Ratio 25 Ratio (12-20); Bilirubin,Total 0.5 mg/dL (0.3-1.2); Blood Urea Nitrogen 10 mg/dL (9-23); Calcium 7.5 mg/dL (8.3-10.6); Calcium (Corrected) 8.7 mg/dL (8.5-10.1); Chloride 105 mMol/L (98-107); Creatinine (Component) 0.4 mg/dL (0.6-1.3); Estimated Creatinine Clearance 234.7 mL/min (>60); Free T4 (Free Thyroxine) 0.87 ng/dL (0.89-1.76); Glucose 104 mg/dL (74-106); Magnesium 1.8 mg/dL (1.6-2.6); Osmolality,Calculated 270 (275-295); Phosphorous 3.3 mg/dL (2.4-5.1); Potassium 3.3 mMol/L (3.4-5.1); Sodium 136 mMol/L (136-145); Total Protein 4.5 gm/dL (5.7-8.2); eGFR > 60 See Note
[2024-10-15 09:05] LABS: Sodium,Urine Random < 10.0 mMol/L (20.0-110.0)
[2024-10-15] MEDS: POTASSIUM CHLORIDE 20 mEq TABCR 40 MEQ PO (09:15)
[2024-10-15] MEDS: FUROSEMIDE INJ 10 MG/ML 4ML VIAL 40 MG IVP (09:34)
[2024-10-15] MEDS: ASPIRIN EC 81 MG TABEC PO (09:35)
[2024-10-15] MEDS: Lisinopril 2.5 MG TABLET 10 MG PO (09:35)
--- NOTE | 2024-10-15 11:04 | ESDS_ITS ---
<Statement entered by Gisselle Hansen MD - 10/16/24 17:39> Attending attestation: I reviewed above note and agree with findings and plans. I have also personally examined the patient with medicine team and went over assessment and plan with medical team including nurse intern and resident physician. Planned Discharge Date 10/15/24 DS: Providers Provider Date of admission: 10/13/24 20:35 Primary care physician: RAMY Wilde Admitting Provider: Gwen Hooper MD Attending Provider on Admission: Gisselle Hansen MD Consults: 10/13/24 17:21 Consult to Nephrology Stat Comment: Consulting Provider: Audra Hoover Attending Provider on DC: Gisselle Hansen MD Discharging Provider: Gisselle Hansen MD DS: Diagnosis Problem List Completed Was Problem List Reviewed/Reconciled?: Yes Hospital Course Hospital Course Hospital course: 39-year-old female with no relevant past medical history was admitted to the hospital on 10/13/2024 for anasarca and possible nephrotic syndrome as well as need for kidney biopsy. In the ED patient has she complained of lower extremity swelling as well as upper extremity swelling and proteinuria as she was sent over to the ED by her primary care physician. Initially patient was afebrile and mildly hypertensive. Initial labs were relevant for proteinuria with total protein and random urine of 1601. Otherwise other labs were unremarkable, except for elevated triglycerides, cholesterol, and LDL likely in the setting of nephrotic syndrome. Imaging included renal ultrasound which showed moderate bilateral renal parenchymal scar formation with no hydronephrosis. Nephrology was consulted as patient looked to be having some nephrotic syndrome given her gross proteinuria as well as edema without any visible hematuria. Nephrology recommended to get a renal biopsy therefore patient underwent a successful right kidney biopsy on the day of admission and she was observed overnight for any possible bleeding. Patient on the day of admission was found to have low free T4 therefore she will be started on levothyroxine. At the time of discharge patient was stable enough to be discharged home and instructed to follow-up with nephrology for kidney biopsy results as well as to start high intensity statin, aspirin, and ARB. Discharge plan: Start taking lisinopril, atorvastatin, levothyroxine and aspirin 1 tab daily. Follow up with nephrology Dr. Hoover within 2 weeks. Establish care with endocrinology within 2 weeks. Follow up with PCP within 1-2 weeks. Problem list: #Nephrotic syndrome #Anasarca #Hypothyroidism #Hypokalemia Case disclosed with Attending Dr. Hansen and My senior Dr. Jarvis PGY2. Eulalio Ferguson PGY1 Status at Discharge Overall status at discharge: patient is progressing back to baseline Time Spent with Patient Time attestation: Total time spent providing and/or coordinating discharge services:>35 min Exam Vital Signs Temp Pulse Resp BP Pulse Ox O2 Del Method O2 Flow Rate 97.7 F 92 18 124/86 H 99 Room Air 3 10/15/24 08:00 10/15/24 09:35 10/15/24 08:40 10/15/24 09:35 10/15/24 08:00 10/15/24 08:00 10/14/24 20:00 Narrative Exam General: A/O x3, no acute distress Eyes: PERRL, EOMI. Anicteric, vision grossly intact. Ears: No ear pain, no ear discharge, Hearing grossly intact. Nose: No nasal discharge. Mouth/Throat: Dry mucous membranes, no redness, no lesions. Neck: Neck supple, non-tender, no cervical lymphadenopathy. Lungs: Clear ADDIS to auscultation and percussion, No accessory muscle use. Cardio: Normal S1/S2, regular rhythm, no murmurs, no JVD Abdomen: Soft, non-tender, no palpable masses, peristalsis present, no guarding or rebound. Extremities: Symmetrical, no significant deformities, trace peripheral edema , non-tender, peripheral pulses presents. Skin: No rashes, no lesions, warm to touch. Clean dressing over R renal biopsy site. Neuro: No focal neurological deficits. motor and sensory intact Psych: Cooperative, appropriate mood and effect. Discharge Plan Plan Patient Disposition: HOME (Self Care) Care Plan Goals: Start taking lisinopril, atorvastatin, levothyroxine and aspirin 1 tab daily. Follow up with nephrology Dr. Hoover within 2 weeks. Establish care with endocrinology within 2 weeks. Follow up with PCP within 1-2 weeks. Prescriptions/Referrals Prescriptions/Med Rec: New lisinopril 5 mg tablet 5 mg PO QDAY Qty: 30 0RF levothyroxine 88 mcg capsule 88 mcg PO QDAY Qty: 30 0RF aspirin 81 mg capsule 81 mg PO QDAY Qty: 30 0RF atorvastatin 40 mg tablet 40 mg PO QPM Qty: 30 0RF Referrals: Zohaib HILL,MARILYN WallaceP [Primary Care Provider] - Patient/Caregiver Discharge Instructions Other Discharge Activity Instructions:: admitted to Dr. Bro Print Language: Wallisian Stand Alone Forms: Daphne Award Info., Patient Portal Info Letter Discharge Order Discharge Orders: Discharge (Routine); Ordered 10/15/24 Ordered By: Raúl Jarvis Quality Discharge Quality Measures none (Patient had increased risk of bled due to procedure )
--- NOTE | 2024-10-15 13:44 | ESPR_ITS ---
Documentation for date of: 10/15/24 Subjective Subjective Interval history: Ms. Anand is a 39-year-old female without past medical history was presented to ED after being sent by PCP(Shazia ORTEGA - Samira Gabriel) patient stated that about a week ago she presented to [facility] ED, with a chief complaints of generalized swelling, mainly bilateral lower edema and facial swelling, was given some medication, and discharged home to follow-up outpatient with PCP. Over a week her symptoms progressively got worse, she also developed a weakness, the swelling was affecting her daily activities leading her to present to clinic. Patient PCP is Dr. Candis Penny, ordered labs and it appeared that patient had a nephrotic syndrome. Patient was urgently referred to ED, to be evaluated by Dr. Hoover and have kidney biopsy done. Patient recalls that at the age of 8 she had some kind of kidney impairment/proteinuria-had kidney biopsy at [facility]. Biopsy report not available. Was given some medication and resolved. On presentation patient was hemodynamically stable, BP was slightly elevated 142/89, CBC unremarkable, CMP revealed hypoalbuminemia with albumin of 3.2, urinalysis revealed 3+ proteinuria, RBCs, triple Phos crystals, random creatinine was 177, urine random total protein was 1601. Otherwise patient denied any recent sick contact, any usual medication use, any recent upper respiratory infection, denies any hematuria, dysuria, chest pain, palpitation, nausea, vomiting, diarrhea, or any other associated symptoms. Patient denies any unusual skin rashes, any joint pain, deformation, or any other symptoms that associated with autoimmune diseases. Nephrology consulted for nephrotic syndrome. Patient examined on the floors, resting comfortably. Patient kept NPO for kidney biopsy. Sodium 138, potassium 3.2 (40 mEq repleated), bicarb 26.6, BUN11, creatinine 0.5, eGFR >60. Biopsy performed without incident, patient started on renal diet. Patient stated she had some condition causing protein in the urine when she was young, self-resolved at age 19. Started aspirin and atorvastatin, will discuss starting ACEi tomorrow. 10/15: Patient seen and examined on the floors. Risk control in bed. Patient completed kidney biopsy without incident. Sodium 136, potassium 3.3 (40 mEq repleated), bicarb 27, BUN 10, creatinine 0.4, eGFR >60. Patient cleared from nephrology perspective. Discharge on lisinopril. Exam Vital Signs Temp Pulse Resp BP Pulse Ox O2 Del Method O2 Flow Rate 97.7 F 83 18 99/73 98 Room Air 3 10/15/24 11:39 10/15/24 11:39 10/15/24 11:39 10/15/24 11:39 10/15/24 11:39 10/15/24 11:39 10/14/24 20:00 Narrative Exam PE: Gen: Well-developed and well-nourished. HEENT: NCAT, PERRLA, EOMI, MMM, anicteric conjunctivae. CVS: normal S1 and S2. RRR. No M/R/G. Resp: CTA B/L. No rhonchi, rales, crackles or wheezing. Abd: soft, non-tender, non-distended. MSK: Good ROM in BUE & BLE. Anasarca. Neuro: CN II-XII grossly intact. Strength 5/5 in BUE & BLE. Alert and oriented x3. Psych: appropriate mood and affect. Objective Labs 10/15/24 05:15 10/15/24 05:15 Labs: Laboratory Results - last 24 hr 10/15/24 10/15/24 05:15 08:02 WBC 5.9 RBC 4.23 Hgb 12.0 Hct 36.2 MCV 86 MCH 28.4 MCHC 33.1 RDW Std Deviation 42.1 Plt Count 156 Neut % (Auto) 48 Lymph % (Auto) 41 Jennings % (Auto) 6 Eos % (Auto) 4 Baso % (Auto) 1 Neut # (Auto) 2.8 Lymph # (Auto) 2.4 Jennings # (Auto) 0.4 Eos # (Auto) 0.3 Baso # (Auto) 0.0 Immature Gran # (Auto) 0.02 H Absolute Nucleated RBC 0.00 Immature Gran % 0 Nucleated RBC % 0 Sodium 136 Potassium 3.3 L Chloride 105 Carbon Dioxide 27.0 Anion Gap 4 L BUN 10 Creatinine 0.4 L Estim Creat Clear Calc 234.7 eGFR > 60 BUN/Creatinine Ratio 25 H Glucose 104 Calculated Osmolality 270 L Calcium 7.5 L Corrected Calcium 8.7 Phosphorus 3.3 Magnesium 1.8 Total Bilirubin 0.5 AST 14 ALT 10 Alkaline Phosphatase 47 Total Protein 4.5 L Albumin 2.5 L Globulin 2.0 L Albumin/Globulin Ratio 1.3 Free T4 0.87 L Ur Random Sodium < 10.0 L Quality Measures Quality Measures VTE prophylaxis Assessment & Plan Assessment Current Active Medications: Generic Name Dose Route Start Last Admin Trade Name Freq PRN Reason Stop Dose Admin Acetaminophen 650 mg 10/13/24 20:35 10/14/24 13:15 Acetaminophen 325 Mg Tablet PO 11/12/24 20:34 650 mg Q6H PRN Administration PAIN OR FEVER > 101 Aspirin 81 mg 10/15/24 09:00 10/15/24 09:35 Aspirin Ec 81 Mg Tabec PO 11/14/24 08:59 81 mg QDAY JOSE Administration Atorvastatin Calcium 80 mg 10/14/24 21:00 10/14/24 20:57 Atorvastatin Calcium 20 Mg Tablet PO 11/13/24 20:59 80 mg HS JOSE Administration Furosemide 40 mg 10/15/24 09:00 10/15/24 09:34 Furosemide Inj 10 Mg/Ml 4ml Vial IVP 11/12/24 20:44 40 mg QDAY JOSE Administration Lisinopril 10 mg 10/15/24 09:00 10/15/24 09:35 Lisinopril 2.5 Mg Tablet PO 11/14/24 08:59 10 mg QDAY JOSE Administration Ondansetron HCl 4 mg 10/13/24 20:35 Ondansetron Inj 2 Mg/Ml Inj 2 Ml IV 11/12/24 20:34 Q6H PRN NAUSEA OR VOMITING Protocol Plan 39-year-old female without past medical history was presented to ED after being sent by PCP, admitted for anasarca and suspected nephrotic syndrome. # Proteinuria with nephrotic range proteinuria/hyperlipidemia, edema, hypoalbuminemia consistent with nephrotic syndrome-suspect minimal-change versus focal segmental glomerulosclerosis. Patient presented with progressive swelling. Urine labs showed: creatinine 177, total protein 1601. Protein/creatinine ratio 9.07 g serum albumin 2.5. Kidney function normal. Renal US showed moderate bilateral renal parenchymal scarring. Renal biopsy performed without issue. Plan: -avoid nephrotoxic medications -Aspirin 81mg PO qDaily -Atorvastatin 80mg PO HS -Start lisinopril on discharge -monitor daily labs -Patient cleared for discharge from nephrology perspective # Hyperlipidemia # Anasarca # Hypoalbuminemia Patient with nephrotic syndrome as high risk of coagulopathy. Add aspirin, NESS inhibitor's, high intensity statins. DVT prophylaxis: SCDs GI prophylaxis: None Diet: Renal Lines: Peripheral IV Code status: Full Code Thank you for allowing me to participate in the care of this patient. Plan of care discussed with attending Dr. Hoover. Bang Joy MD PGY-1 Attending Provider Attestation/Addendum Patient seen and examined with resident physician Dr. Joy. Note reviewed, agree with findings and recommendations. 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 Will await light microscopy and immunofluorescence testing. Spoke to [facility] pathologist.
[2024-10-20 07:40] LABS: ANA Screen, IFA NEGATIVE (NEGATIVE); ANCA Screen NEGATIVE (NEGATIVE); Complement Component C3* 152 mg/dL (83-193); Complement Component C4c* 41 mg/dL (15-57); Myeloperoxidase Ab <1.0 AI (<1.0); Proteinase-3 Ab <1.0 AI (<1.0)
== END 2024-10-15 13:36 | disposition home or self-care (01) | DRG 462 ==
LOC: SERX 20:35 → SERHOLD 21:31 → S3SX 10-14 01:23
PROVIDERS: Nurse Practitioner Primary Care; Radiology Diagnostic Radiology; Admitting Provider Student in an Organized Health Care Education/Training Program; Emergency Provider Emergency Medicine; PCP Nurse Practitioner Family; Visit Provider Internal Medicine
DX: N04.9 Nephrotic syndrome with unspecified morphologic changes (principal); E03.9 Hypothyroidism, unspecified; E78.1 Pure hyperglyceridemia; E87.6 Hypokalemia; E88.09 Other disorders of plasma-protein metabolism, not elsewhere classified; I10 Essential (primary) hypertension; E66.9 Obesity, unspecified; Z68.41 Body mass index [BMI] 40.0-44.9, adult; Z90.49 Acquired absence of other specified parts of digestive tract
CPT/HCPCS: 36415; 76770; 77012; 80053; 80061; 80074; 81001; 81025; 82570; 83735; 84100; 84156; 84300; 84439; 84443; 85025; 85610; 85730; 86021; 86036; 86038; 86160; 87086; 96374; 99285; A4649; J1940; J3010; J3480; A9270

== ENCOUNTER → 2024-10-28 | Outpatient (BNVA) | payer MEDICAID, SELFPAY | END | disposition home or self-care (01) | PROVIDERS: PCP Nurse Practitioner Family; Referring Provider Nurse Practitioner Family; Visit Provider Nurse Practitioner Family | DX: Z00.01 Encounter for general adult medical examination with abnormal findings (principal); H61.22 Impacted cerumen, left ear; E03.8 Other specified hypothyroidism; E78.01 Familial hypercholesterolemia; N05.9 Unspecified nephritic syndrome with unspecified morphologic changes; R80.9 Proteinuria, unspecified; F32.A Depression, unspecified; F41.9 Anxiety disorder, unspecified; Z68.41 Body mass index [BMI] 40.0-44.9, adult | CPT/HCPCS: 69209; 99214 ==

== ENCOUNTER → 2024-11-25 | Outpatient (CLI) | payer MEDICAID, SELFPAY ==
[2024-11-25 09:57] LABS: Collection Type, Urine Clean Catch
[2024-11-25 10:14] LABS: Basophils # (Auto) 0.1 Thou/mm3 (0.0-0.2); Basophils % (Auto) 1 % (0-2.5); Eosinophils # (Auto) 0.2 Thou/mm3 (0.0-0.5); Eosinophils % (Auto) 2 % (0-10); Hematocrit 39.9 % (36.0-46.0); Hemoglobin 13.1 g/dL (12.0-16.0); Immature Granulocytes % (Auto) 0 % (0-0); Immature Granulocytes Auto 0.04 Thou/mm3 (0.00-0.00); Lymphocytes # (Auto) 4.4 Thou/mm3 (1.0-4.8); Lymphocytes % (Auto) 39 % (10-50); Mean Corpuscular HGB Conc 32.8 g/dl (31.0-37.0); Mean Corpuscular Hemoglobin 28.5 pg (25.0-35.0); Mean Corpuscular Volume 87 fL (80-100); Monocytes # (Auto) 0.7 Thou/mm3 (0.0-0.8); Monocytes % (Auto) 6 % (0-12); Neutrophils # (Auto) 6.1 Thou/mm3 (1.8-7.7); Neutrophils % (Auto) 53 % (37-80); Nucleated Red Blood Cell % 0 /100 WBC (0); Platelet Count 201 Thou/mm3 (140-440); RDW Standard Deviation 44.4 fL (36.4-46.3); White Blood Count 11.5 Thou/mm3 (3.6-11.0)
[2024-11-25 10:28] LABS: Creatinine,Random Urine 151 mg/dL (30-125); Protein Total, Random Urine 532 mg/dL (1-14)
[2024-11-25 10:31] LABS: Bilirubin,Urine Negative (Negative); Blood,Urine Trace (Negative); Clarity,Urine Clear (Clear/Hazy); Color,Urine Yellow (Lt Yel-Yel); Glucose, Urine Negative (Negative); Ketones,Urine Negative (Negative); Leukocyte Esterase,Urine Negative (Negative); Nitrite,Urine Negative (Negative); Protein,Urine 3+ (Neg - Trace); RBC,Urine 5 /hpf (0-3); Squamous Epithelial Cell,Urine 5 /hpf (0-5); Urobilinogen,Urine Negative mg/dL (0.0-1.0); WBC,Urine 2 /hpf (0-5)
[2024-11-25 10:36] LABS: Alanine Aminotransferase 19 U/L (10-49); Albumin, Serum 3.1 gm/dL (3.5-5.0); Albumin/Globulin Ratio 1.7 (1.2-2.2); Alkaline Phosphatase 59 U/L (46-116); Anion Gap 6 (7-16); BUN/Creatinine Ratio 32 Ratio (12-20); Bilirubin,Total 0.9 mg/dL (0.3-1.2); Blood Urea Nitrogen 16 mg/dL (9-23); Calcium 8.2 mg/dL (8.3-10.6); Calcium (Corrected) 8.9 mg/dL (8.5-10.1); Carbon Dioxide 29.1 mMol/L (20.0-31.0); Chloride 104 mMol/L (98-107); Creatinine (Component) 0.5 mg/dL (0.6-1.3); Globulin 1.8 gm/dL (2.3-3.5); Glucose 84 mg/dL (74-106); Osmolality,Calculated 277 (275-295); Potassium 3.6 mMol/L (3.4-5.1); Sodium 139 mMol/L (136-145); Thyroid Stimulating Hormone 4.91 uIU/mL (0.55-4.78); Total Protein 4.9 gm/dL (5.7-8.2); eGFR > 60 See Note
[2024-11-25 10:46] LABS: Aspartate Amino Transferase < 10 U/L (0-34)
== END | disposition home or self-care (01) ==
LOC: COPL 09:40
PROVIDERS: PCP Nurse Practitioner Family; Referring Provider Internal Medicine; Visit Provider Internal Medicine
DX: R80.9 Proteinuria, unspecified (principal); N04.0 Nephrotic syndrome with minor glomerular abnormality; R60.1 Generalized edema
CPT/HCPCS: 36415; 80053; 81001; 82570; 84156; 84443; 85025

== ENCOUNTER → 2024-12-18 | Outpatient (BNVA) | payer MEDICAID, SELFPAY | END | disposition home or self-care (01) | PROVIDERS: PCP Nurse Practitioner Family; Referring Provider Nurse Practitioner Family; Visit Provider Nurse Practitioner Family | DX: E78.01 Familial hypercholesterolemia (principal); N04.9 Nephrotic syndrome with unspecified morphologic changes; R80.9 Proteinuria, unspecified | CPT/HCPCS: 99212; G0463 ==

== ENCOUNTER → 2025-06-02 | Outpatient (BNVA) | payer MEDICAID, SELFPAY | END | disposition home or self-care (01) | PROVIDERS: PCP Nurse Practitioner Family; Referring Provider Nurse Practitioner Family; Visit Provider Nurse Practitioner Primary Care | DX: N04.9 Nephrotic syndrome with unspecified morphologic changes (principal) | CPT/HCPCS: 99212; G0463 ==

== ENCOUNTER → 2025-06-05 | Outpatient (BNVA) | payer MEDICAID, SELFPAY | END | disposition home or self-care (01) | PROVIDERS: PCP Internal Medicine; Referring Provider Internal Medicine; Visit Provider Internal Medicine | DX: N04.9 Nephrotic syndrome with unspecified morphologic changes (principal); E78.01 Familial hypercholesterolemia; R80.9 Proteinuria, unspecified | CPT/HCPCS: 99213 ==

== ENCOUNTER → 2025-06-15 | Outpatient (BNVA) | payer MEDICAID, SELFPAY | END | disposition home or self-care (01) | PROVIDERS: PCP Nurse Practitioner Family; Referring Provider Nurse Practitioner Family; Visit Provider Nurse Practitioner Family | DX: Z71.2 Person consulting for explanation of examination or test findings (principal); N04.9 Nephrotic syndrome with unspecified morphologic changes; E78.01 Familial hypercholesterolemia; R80.9 Proteinuria, unspecified | CPT/HCPCS: 99212; G0463 ==

== ENCOUNTER → 2025-10-01 | Outpatient (BNVA) | payer MEDICAID, SELFPAY | END | disposition home or self-care (01) | PROVIDERS: PCP Nurse Practitioner Family; Referring Provider Nurse Practitioner Family; Visit Provider Nurse Practitioner Family | DX: N04.9 Nephrotic syndrome with unspecified morphologic changes (principal) | CPT/HCPCS: 99213 ==

== ENCOUNTER → 2025-10-09 | Outpatient (BNVA) | payer MEDICAID, SELFPAY | END | disposition home or self-care (01) | PROVIDERS: PCP Internal Medicine; Referring Provider Internal Medicine; Visit Provider Internal Medicine | DX: N04.9 Nephrotic syndrome with unspecified morphologic changes (principal); E78.019 Familial hypercholesterolemia, unspecified; R80.9 Proteinuria, unspecified | CPT/HCPCS: 99214 ==

== ENCOUNTER 2025-10-30 17:37 | Inpatient (IN) | payer MEDICAID, SELFPAY ==
[2025-10-30 17:38] VITALS: BMI 43.2
[2025-10-30 18:01] VITALS: BP 121/83; PULSE 99; RESP 19; TEMP 36.9; O2SAT 98
--- NOTE | 2025-10-30 18:38 | PD.EDRECHK ---
ED Recheck Abnl Lab Rx-RME/HPI General Chief Complaint: General Adult/Misc Complain Stated Complaint: SENT BY DR. HOOVER FOR ADMISSION Time Seen by Provider: 10/30/25 18:37 Arrival date/time: 10/30/25 17:37 40F with history of HTN presents to ED for acute unintentional weight gain. Patient was seen in clinic by Dr. Hoover (see notes) who sent her to ED for admission for generalized edema likely 2/2 nephrotic syndrome. Limitations: no limitations Related Data Previous Rx's ?Medication ?Instructions ?Recorded atorvastatin 40 mg tablet 40 mg PO QPM 30 days #30 tabs 06/05/25 hydroxyzine HCl 25 mg tablet 25 mg PO QHS #30 tabs 06/05/25 lisinopril 5 mg tablet 5 mg PO QDAY 30 days #30 tabs 06/05/25 pantoprazole 20 mg tablet,delayed 20 mg PO QDAY #30 tabs 06/05/25 release (Protonix) prednisone 20 mg tablet 40 mg (2 x 20 mg) PO QDAY 30 days 06/05/25 #60 tabs aspirin 81 mg capsule 81 mg PO QDAY #30 caps 10/09/25 cyclosporine 100 mg capsule 100 mg PO QDAY #30 caps 10/09/25 furosemide 40 mg tablet (Lasix) 40 mg PO QDAY #30 tabs 10/09/25 Allergies Allergy/AdvReac Type Severity Reaction Status Date / Time No Known Allergies Allergy Verified 10/30/25 17:40 Review of Systems Review of Systems Systems Reviewed: All systems reviewed, normal except as documented Integumentary/Breasts Skin/Breast: Reports as per HPI and Reports skin swelling Past Medical History Past Medical History NEUROLOGIC: Negative Seizures CARDIAC: Negative Congestive Heart Failure RESPIRATORY: Negative Chronic Obstructive Pulmonary Disease (COPD) GENITOURINARY: Positive Renal Disease ENDOCRINE: Negative Diabetes Mellitus Type 1 or Diabetes Mellitus Type 2 OTHER HISTORY: Negative Blood Transfusions, Blood Transfusion Reaction or Anesthesia Reactions Social History SMOKING STATUS: Never smoker ED Exam General Limitations: Present no limitations General appearance: Present alert and in no apparent distress Head Head exam: Present atraumatic Neck Neck exam: Present normal inspection, full ROM and trachea midline Chest Chest inspection: Present normal inspection and symmetric chest wall rise Neurological Exam Neurological exam: Present alert and oriented X3 Psychiatric Psychiatric exam: Present normal affect and normal mood Skin Skin exam: Present warm, dry, intact and normal color Course Quality Measures none Orders Category Date Time Status COVID-19 Screening Questionnaire NOW Care 10/30/25 18:43 Active Decision to Admit X1 Care 10/30/25 18:43 Completed EKG (ED ONLY) *Do not use* NOW Care 10/30/25 18:41 Completed Insert IV NOW Care 10/30/25 18:40 Active Consult to Nephrology Stat Cons 10/30/25 18:43 Ordered EKG (ED Only) Stat Exams 10/30/25 18:40 Draft XR chest 1V portable Stat Exams 10/30/25 18:40 Completed Ammonia Stat Lab 10/30/25 18:53 Completed BNP [B-Type Natriuretic Peptide] Stat Lab 10/30/25 18:53 Completed CBC Stat Lab 10/30/25 18:53 Completed CMP [Comprehensive Metabolic Panel] Stat Lab 10/30/25 18:53 Completed Drug Screen,Urine Stat Lab 10/30/25 18:43 Ordered HCG Qualitative,Urine Stat Lab 10/30/25 18:43 Ordered Mag [Magnesium] Stat Lab 10/30/25 18:53 Completed Troponin I Stat Lab 10/30/25 18:53 Completed Urinalysis, C/S if Indicated Stat Lab 10/30/25 18:43 Ordered Container,Empty 50 ml [Empty Container Bag 50 ml] 1 bag Med 10/30/25 18:43 Active Bumetanide Inj [Bumex Inj] 20 mg IV 2 mg/hr Vital Signs Vital signs: Vital Signs Temperature 98.5 F 10/30/25 18:01 Pulse Rate 99 10/30/25 18:01 Respiratory Rate 19 10/30/25 18:01 Blood Pressure 121/83 10/30/25 18:01 Pulse Oximetry (%) 98 10/30/25 18:01 Oxygen Delivery Method Room Air 10/30/25 18:01 O2 at 98% on RA and WNLs Recheck / Abnormal Lab / Rx MDM Narrative MDM Narrative:: 40F with history of HTN presents to ED for acute unintentional weight gain. Patient was seen in clinic by Dr. Hoover (see notes) who sent her to ED for admission for generalized edema likely 2/2 nephrotic syndrome. Physical exam reveals obese female. Normal WOB. Patient is afebrile, calm, and alert. Spoke to Dr. Hoover, who recommends 1 bag of Bumex at 2 mg/hr. She will consult and requests IM to admit. Spoke to IM resident who reports to Dr. Mike, who will admit patient. Patient data External records reviewed:: [facility] previous records Clinical information provided by:: patient Social determinants that could affect healthcare access:: none Patient has the following chronic illnesses:: HTN How is presenting disease/condition affected by chronic disease/condition?: exacerbated by Evaluation data The following diagnostics were reviewed and interpreted by me:: lab results, radiology exam(s) and EKG tracing(s) Lab and/or radiology exams considered but not ordered:: ordered Interpretation Summary: above Medications / Prescriptions Medications or Prescriptions considered but not ordered:: ordered Medication administrations:: Medication Administration History Acetaminophen (Acetaminophen 325 Mg Tablet) 650 mg PO Q6H PRN PRN Reason: Fever >100.4 Stop: 11/29/25 21:20 Enoxaparin Sodium (Enoxaparin Sod Inj 40 Mg/0.4 Ml Syringe) 40 mg SC QDAY [facility] Stop: 11/14/25 08:59 Bumetanide 20 mg/ IV (Miscellaneous Supplies) 80 mls @ 8 mls/hr IV .Q10H [facility] Stop: 10/31/25 14:42 Last Admin: 10/30/25 20:06 Dose: 2 mg/hr, 8 mls/hr Documented By: DEREK Albumin Human (Albuminex 25% Ivpb) 25 gm in 100 mls @ 100 mls/hr IV QDAY [facility] Stop: 11/02/25 21:30 Last Admin: 10/30/25 21:54 Dose: 100 mls/hr Documented By: DEREK above Consultations Consultation(s) initiated? (list below): Yes Diagnosis Recheck Differential Diagnosis: encounter for medication refill, encounter for wound recheck, encounter for recheck of burn, encounter for removal of sutures, warfarin-induced coagulopathy and other (anasarca and nephrotic syndrome) Most likely diagnosis given after review of the tests above:: nephrotic syndrome Admission Indicated Admission indicated?: indicated Admission Request Was there a request for admission?: Yes Admission Attestation Admission request attestation: Discussed case with [Dr. Mike] from Hospitalist service regarding admission. Discussed patients ED course, exam findings, labs, and radiology results. The Hospitalist [agrees] to accept the patient for admission. Disposition Plan Disposition Plan: Admit Discharge Plan Plan Patient Disposition: Admit Acute Care w/in Hospital Problem List Clinical Impression: Nephrotic syndrome
--- NOTE | 2025-10-30 18:40 | XR_ITS ---
EXAMINATION: PA chest single view TECHNIQUE: Upright PA chest single view Date and time: October 30, 2025, 1901 hours INDICATIONS: Anasarca fluid overload 1 week. FINDINGS: Normal heart size No pneumonia or pulmonary edema Mild elevation right hemidiaphragm Intact osseous structures IMPRESSION: No pneumonia or pulmonary edema
--- NOTE | 2025-10-30 18:40 | EKG_ITS ---
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
[2025-10-30 19:20] LABS: Basophils # (Auto) 0.1 Thou/mm3 (0.0-0.2); Basophils % (Auto) 1 % (0-2.5); Eosinophils # (Auto) 0.2 Thou/mm3 (0.0-0.5); Eosinophils % (Auto) 2 % (0-10); Hematocrit 46.7 % (36.0-46.0); Hemoglobin 15.7 g/dL (12.0-16.0); Immature Granulocytes Auto 0.07 Thou/mm3 (0.00-0.00); Lymphocytes # (Auto) 3.4 Thou/mm3 (1.0-4.8); Lymphocytes % (Auto) 29 % (10-50); Mean Corpuscular HGB Conc 33.6 g/dl (31.0-37.0); Mean Corpuscular Hemoglobin 31.6 pg (25.0-35.0); Mean Corpuscular Volume 94 fL (80-100); Monocytes # (Auto) 0.7 Thou/mm3 (0.0-0.8); Monocytes % (Auto) 6 % (0-12); Neutrophils # (Auto) 7.3 Thou/mm3 (1.8-7.7); Neutrophils % (Auto) 62 % (37-80); Nucleated Red Blood Cell # 0.00 Thou/mm3 (0.00-0.00); Nucleated Red Blood Cell % 0 /100 WBC (0); Platelet Count 231 Thou/mm3 (140-440); RDW Standard Deviation 44.6 fL (36.4-46.3); Red Blood Count 4.97 Miln/mm3 (4.00-5.20); White Blood Count 11.8 Thou/mm3 (3.6-11.0)
[2025-10-30 19:24] LABS: Ammonia 35 uMol/L (11-32); B-Type Natriuretic Peptide < 20 pg/mL (0-100)
[2025-10-30 19:26] LABS: Alanine Aminotransferase 79 U/L (10-49); Albumin, Serum 2.9 gm/dL (3.5-5.0); Albumin/Globulin Ratio 1.3 (1.2-2.2); Alkaline Phosphatase 385 U/L (46-116); Anion Gap 7 (7-16); Aspartate Amino Transferase 94 U/L (0-34); BUN/Creatinine Ratio 27 Ratio (12-20); Bilirubin,Total 0.6 mg/dL (0.3-1.2); Blood Urea Nitrogen 19 mg/dL (9-23); Calcium 8.1 mg/dL (8.3-10.6); Calcium (Corrected) 9.0 mg/dL (8.5-10.1); Carbon Dioxide 29.4 mMol/L (20.0-31.0); Chloride 105 mMol/L (98-107); Creatinine (Component) 0.7 mg/dL (0.6-1.3); Estimated Creatinine Clearance 137.2 mL/min (>60); Globulin 2.2 gm/dL (2.3-3.5); Glucose 105 mg/dL (74-106); Magnesium 2.5 mg/dL (1.6-2.6); Osmolality,Calculated 283 (275-295); Potassium 4.0 mMol/L (3.4-5.1); Sodium 141 mMol/L (136-145); Total Protein 5.1 gm/dL (5.7-8.2); Troponin I < 0.002 ng/mL (0.0-0.045); eGFR > 60 See Note
[2025-10-30 20:01] VITALS: BP 159/89; PULSE 88; RESP 18; TEMP 37.4; O2SAT 99
[2025-10-30] MEDS: BUMETANIDE INJ 20 MG in CONTAINER,EMPTY 50 ML 1 BAG 8 MG IV (20:06)
--- NOTE | 2025-10-30 21:32 | XR_ITS ---
Examination: Abdomen sonogram, Limited Date and time of exam: October 30, 2025, 2319 hours INDICATIONS: Elevated liver function test on laboratory examination today. Technique: Real-time santana scale transabdominal sonographic images of the upper abdomen obtained. Findings: Absent gallbladder Normal common bile duct 0.4 cm Pancreatic head 4.0 cm Liver 16.1 cm irregular contour fatty infiltration mild ascites Normal hepatopetal portal venous flow Patent IVC IMPRESSION: Normal common bile duct Prominent pancreatic head clinical correlation advised Cirrhosis, fatty infiltration, no focal liver lesions
[2025-10-30 21:35] VITALS: PULSE 90; RESP 18; RESP 98
--- NOTE | 2025-10-30 21:52 | ESHP_ITS ---
<Statement entered by Wendy Ley MD - 10/31/25 03:21> Ms. Anand is a 40-year-old female past medical history of minimal-change disease sent from her computer hardware technician Dr. Hoover's office due to worsening anasarca resistant to oral Lasix. Pt was diagnosed with minimal changed disease in childhood and never took medications until Aug 2024, she was started on prednisone (60mg -> transitioned to 40mg QD -> now on 20mg daily) and lasix 40mg daily. Pt states she also adheres to a low salt diet however approximately a month ago she noticed she has been gaining weight and around Thanksgiving she had worsening anasarca extending all the way to her abdomen. Patient followed up with her computer hardware technician who recommended for her to come to the ED to be hospitalized for a Bumex drip. Anasarca in the setting of minimal-change disease, started patient on Bumex drip, patient is also given 25 g of albumin and 30 minutes later we started the Bumex drip Patient states she has history of hypothyroidism however she is not taking any medication will order TSI and free T4 for morning labs On admission patient has mild transaminitis with AST 94 and ALT 70, will order liver ultrasound Patient was seen and examined by me personally. I have directly supervised and reviewed documentation by the team resident and agree with its findings. ------- Plan of care was discussed with the attending, Dr. Cee Ley, PGY-2 Documentation for date of: 10/30/25 HPI History of Present Illness History of present illness: HPI: 40-year-old female past medical history of nephrotic syndrome and minimal-change disease presented to the ED on the evening of 10/30/2025 with chief complaint of anasarca. The patient recently gained over 25 pounds in the past month and is resistant to diuretics per history review. The patient follows Dr. Hoover who advised the patient to present to the hospital for a Bumex drip after seeing the patient in the office earlier the day of presentation. The patient was admitted for management of her diffuse anasarca secondary to nephrotic syndrome. ED Course: * Significant vitals on arrival: Vitals within normal limits on arrival * Significant labs: WBC 11.8, AST 94, ALT 79, alk phos 385, ammonia 35, total serum protein 5.1, serum albumin 2.9 * Imaging: Chest x-ray negative for pneumonia or pulmonary edema, mild elevation of left hemidiaphragm. EKG showed sinus rhythm V rate of 95 and a QTc of 407. * Urine: Random total protein 1292, turbid, 3+ protein, 3+ blood, 17 RBCs, 10 WBCs, 6 squamous epithelial cells * ED intervention: Patient was started on a Bumex drip of 2 mg/h, also received acetaminophen 650 History: * Past medical history: Nephrotic syndrome, minimal-change disease, hypothyroidism, hypertension #hyperlipidemia * Surgical history: Noncontributory * Social history: Denies alcohol tobacco or drug use Allergies: * No known drug allergies Home Medications: * Aspirin 81 mg. * Atorvastatin 40 mg. * Cyclosporine 100 mg. * Furosemide 40 mg. * Hydroxyzine 25 mg. * Hydroxyzine 25 mg. * Pantoprazole 20 mg. * Prednisone 20 mg. CODE STATUS: Full code Review of Systems Review of Systems Narrative Review of Systems: Review of Systems: * General: Endorses 25 pound weight gain over the past month. Denies fevers, chills. * HEENT: Denies headache, congestion, or sore throat. * Cardiac: Denies chest pain or palpitations. * Pulmonary: Denies shortness of breath or cough. * GI: Admits to diffuse abdominal bloating and associated indigestion. Denies nausea, vomiting, diarrhea, constipation, melena, or hematochezia. * : Denies dysuria, hematuria, frequency, or urgency. * MSK: Denies pain in the extremities, joints, or myalgias. * Neuro: Denies weakness, numbness, vision changes, or speech difficulty. Exam Vital Signs Temp Pulse Resp BP Pulse Ox O2 Del Method 99.3 F 90 18 159/89 H 99 Room Air 10/30/25 20:01 10/30/25 21:35 10/30/25 21:35 10/30/25 20:01 10/30/25 20:01 10/30/25 20:01 Narrative Exam General: Diffuse anasarca. Awake and in no acute distress. Conversational and non-toxic appearing. Neurologic: GCS 15. Alert and oriented x3, no gross neurological deficit, and patient able to move all 4 extremities. HEENT: Normocephalic, atraumatic, mucous membranes moist. Pupils reactive to light. Heart: Regular rate and rhythm, normal S1 and S2, no murmurs. Lungs: Clear to auscultation bilaterally with no wheezing or crackles. Abdomen: Obese. Soft, nondistended, nontender, positive bowel sounds. No guarding or rebound tenderness. Extremities: 2+ pitting edema in the lower extremities bilaterally. 2+ radial and dorsalis pedis pulses bilaterally. Skin: Warm. Dry. No rash or ecchymoses. Results: Labs 11/01/25 04:32 11/01/25 17:19 Labs: Short CBC 10/30/25 Range/Units 18:53 WBC 11.8 H (3.6-11.0) Thou/mm3 Hgb 15.7 (12.0-16.0) g/dL Hct 46.7 H (36.0-46.0) % Plt Count 231 (140-440) Thou/mm3 BMP 10/30/25 18:53 Sodium 141 Potassium 4.0 Chloride 105 Carbon Dioxide 29.4 BUN 19 Creatinine 0.7 Glucose 105 Calcium 8.1 L Cardiac Enzymes 10/30/25 Range/Units 18:53 Troponin I < 0.002 (0.0-0.045) ng/mL Liver Function 10/30/25 Range/Units 18:53 Total Bilirubin 0.6 (0.3-1.2) mg/dL AST 94 H (0-34) U/L ALT 79 H (10-49) U/L Alkaline Phosphatase 385 H (46-116) U/L Albumin 2.9 L (3.5-5.0) gm/dL Quality Measures Quality Measures VTE prophylaxis Medications Home Medications and Allergies Home Medications ?Medication ?Instructions ?Recorded ?Confirmed ?Type prednisone 20 mg tablet 20 mg PO QDAY 10/31/2510/31 History Allergies Allergy/AdvReac Type Severity Reaction Status Date / Time No Known Allergies Allergy Verified 10/30/25 17:40 Visit Medications Acetaminophen (Acetaminophen 325 Mg Tablet) 650 mg PO Q6H PRN PRN Reason: Fever >100.4 Stop: 11/29/25 21:20 Enoxaparin Sodium (Enoxaparin Sod Inj 40 Mg/0.4 Ml Syringe) 40 mg SC QDAY [facility] Stop: 11/14/25 08:59 Bumetanide 20 mg/ IV (Miscellaneous Supplies) 80 mls @ 8 mls/hr IV .Q10H [facility] Stop: 10/31/25 14:42 Last Admin: 10/30/25 20:06 Dose: 2 mg/hr, 8 mls/hr Albumin Human (Albuminex 25% Ivpb) 25 gm in 100 mls @ 100 mls/hr IV QDAY [facility] Stop: 11/02/25 21:30 Assessment & Plan Plan Summary: 40-year-old female past medical history of nephrotic syndrome and minimal-change disease presented to the ED on the evening of 10/30/2025 with chief complaint of anasarca. The patient follows Dr. Hoover who advised the patient to present to the hospital for a Bumex drip after seeing the patient in the office earlier the day of presentation. The patient was admitted for management of her diffuse anasarca secondary to nephrotic syndrome with Bumex drip. #Diffuse anasarca secondary to #Nephrotic syndrome #Minimal-change disease #Hypoalbuminemia * Patient presented with diffuse anasarca * Patient endorsed a 25 pound weight gain over the past month * Serum total protein and albumin is low, characteristic of minimal-change disease * Urine random total protein 1292, also characteristic of minimal-change disease * Patient takes prednisone 20 mg daily at home Plan: * Bumex drip at 2 mg/h was initiated in the ED * This was held while 25 gm 25% albumin was administered, the Bumex drip was then resumed * Strict ins and outs * Fluid restriction 1500 mL * Low-sodium diet * Prednisone 80 mg daily * Nephrology consulted, follows Dr. Hoover #Transaminitis #Elevated alk phos #Hyperammonemia * Patient presented with AST 94, ALT 79 * Patient presented with alk phos 385 * Patient distended with ammonia 35 Plan: * Liver ultrasound ordered #Hypertension * Per chart review Plan: * Pending med rec, consider restarting home medications #Hypothyroidism * This may be secondary to loss of thyroxine binding globulin in the urine leading to decreased total T4 and T3 though free T4 should remain normal due to compensatory production * However, patient has had elevated TSH and low free T4 in the past * She is not taking levothyroxine at home Plan: * Follow-up repeat TSH and free T4 #Hyperlipidemia * Per chart review Plan: * Consider restarting home atorvastatin 40 mg nightly after med rec Hospital Maintenance: DVT ppx: Lovenox 40 mg subcu daily Diet: Low-sodium diet, fluid restriction 1500 mL IV lines: Peripheral IVs Code status: Full code Dispo: Med/tele for Bumex drip. Follow-up liver ultrasound. Patient was seen and discussed with my attending physician Dr. Cee MAYER and my senior resident Dr. Av MAYER PGY-2. Ricardo Zuleta DO PGY-1. Attending Provider Attestation/Addendum After examination of the patient and review of the clinical data I feel that this patient needs admission to the hospital for further treatment/evaluation. Plan of care discussed with patient and is in agreement. I Parvin Mike MD, attest that I was physically present for hou portions of evaluation, and examined patient, labs and imagings and plan of care were discussed with IM residents team, and I agree with the findings and plans documented above.
--- NOTE | 2025-10-30 21:52 | PD.RESHP ---
Documentation for date of: 10/30/25 HPI History of Present Illness History of present illness: HPI: 40-year-old female past medical history of nephrotic syndrome and minimal-change disease presented to the ED on the evening of 10/30/2025 with chief complaint of anasarca. The patient recently gained over 25 pounds in the past month and is resistant to diuretics per history review. The patient follows Dr. Hoover who advised the patient to present to the hospital for a Bumex drip after seeing the patient in the office earlier the day of presentation. The patient was admitted for management of her diffuse anasarca secondary to nephrotic syndrome. ED Course: Significant vitals on arrival: Vitals within normal limits on arrival Significant labs: WBC 11.8, AST 94, ALT 79, alk phos 385, ammonia 35, total serum protein 5.1, serum albumin 2.9 Imaging: Chest x-ray negative for pneumonia or pulmonary edema, mild elevation of left hemidiaphragm. EKG showed sinus rhythm V rate of 95 and a QTc of 407. Urine: Random total protein 1292, turbid, 3+ protein, 3+ blood, 17 RBCs, 10 WBCs, 6 squamous epithelial cells ED intervention: Patient was started on a Bumex drip of 2 mg/h, also received acetaminophen 650 History: Past medical history: Nephrotic syndrome, minimal-change disease, hypothyroidism, hypertension #hyperlipidemia Surgical history: Noncontributory Social history: Denies alcohol tobacco or drug use Allergies: No known drug allergies Home Medications: Aspirin 81 mg. Atorvastatin 40 mg. Cyclosporine 100 mg. Furosemide 40 mg. Hydroxyzine 25 mg. Hydroxyzine 25 mg. Pantoprazole 20 mg. Prednisone 20 mg. CODE STATUS: Full code Review of Systems Review of Systems Narrative Review of Systems: Review of Systems: General: Endorses 25 pound weight gain over the past month. Denies fevers, chills. HEENT: Denies headache, congestion, or sore throat. Cardiac: Denies chest pain or palpitations. Pulmonary: Denies shortness of breath or cough. GI: Admits to diffuse abdominal bloating and associated indigestion. Denies nausea, vomiting, diarrhea, constipation, melena, or hematochezia. : Denies dysuria, hematuria, frequency, or urgency. MSK: Denies pain in the extremities, joints, or myalgias. Neuro: Denies weakness, numbness, vision changes, or speech difficulty. Exam Vital Signs Temp Pulse Resp BP Pulse Ox O2 Del Method 99.3 F 90 18 159/89 H 99 Room Air 10/30/25 20:01 10/30/25 21:35 10/30/25 21:35 10/30/25 20:01 10/30/25 20:01 10/30/25 20:01 Narrative Exam General: Diffuse anasarca. Awake and in no acute distress. Conversational and non-toxic appearing. Neurologic: GCS 15. Alert and oriented x3, no gross neurological deficit, and patient able to move all 4 extremities. HEENT: Normocephalic, atraumatic, mucous membranes moist. Pupils reactive to light. Heart: Regular rate and rhythm, normal S1 and S2, no murmurs. Lungs: Clear to auscultation bilaterally with no wheezing or crackles. Abdomen: Obese. Soft, nondistended, nontender, positive bowel sounds. No guarding or rebound tenderness. Extremities: 2+ pitting edema in the lower extremities bilaterally. 2+ radial and dorsalis pedis pulses bilaterally. Skin: Warm. Dry. No rash or ecchymoses. Results: Labs 11/01/25 04:32 11/01/25 17:19 Labs: Short CBC 10/30/25 Range/Units 18:53 WBC 11.8 H (3.6-11.0) Thou/mm3 Hgb 15.7 (12.0-16.0) g/dL Hct 46.7 H (36.0-46.0) % Plt Count 231 (140-440) Thou/mm3 BMP 10/30/25 18:53 Sodium 141 Potassium 4.0 Chloride 105 Carbon Dioxide 29.4 BUN 19 Creatinine 0.7 Glucose 105 Calcium 8.1 L Cardiac Enzymes 10/30/25 Range/Units 18:53 Troponin I < 0.002 (0.0-0.045) ng/mL Liver Function 10/30/25 Range/Units 18:53 Total Bilirubin 0.6 (0.3-1.2) mg/dL AST 94 H (0-34) U/L ALT 79 H (10-49) U/L Alkaline Phosphatase 385 H (46-116) U/L Albumin 2.9 L (3.5-5.0) gm/dL Quality Measures Quality Measures VTE prophylaxis Medications Home Medications and Allergies Home Medications ?Medication ?Instructions ?Recorded ?Confirmed ?Type prednisone 20 mg tablet 20 mg PO QDAY 10/31/25 10/31/25 History Allergies Allergy/AdvReac Type Severity Reaction Status Date / Time No Known Allergies Allergy Verified 10/30/25 17:40 Visit Medications Acetaminophen (Acetaminophen 325 Mg Tablet) 650 mg PO Q6H PRN PRN Reason: Fever >100.4 Stop: 11/29/25 21:20 Enoxaparin Sodium (Enoxaparin Sod Inj 40 Mg/0.4 Ml Syringe) 40 mg SC QDAY [facility] Stop: 11/14/25 08:59 Bumetanide 20 mg/ IV (Miscellaneous Supplies) 80 mls @ 8 mls/hr IV .Q10H JOSE Stop: 10/31/25 14:42 Last Admin: 10/30/25 20:06 Dose: 2 mg/hr, 8 mls/hr Albumin Human (Albuminex 25% Ivpb) 25 gm in 100 mls @ 100 mls/hr IV QDAY [facility] Stop: 11/02/25 21:30 Assessment & Plan Plan Summary: 40-year-old female past medical history of nephrotic syndrome and minimal-change disease presented to the ED on the evening of 10/30/2025 with chief complaint of anasarca. The patient follows Dr. Hoover who advised the patient to present to the hospital for a Bumex drip after seeing the patient in the office earlier the day of presentation. The patient was admitted for management of her diffuse anasarca secondary to nephrotic syndrome with Bumex drip. #Diffuse anasarca secondary to #Nephrotic syndrome #Minimal-change disease #Hypoalbuminemia Patient presented with diffuse anasarca Patient endorsed a 25 pound weight gain over the past month Serum total protein and albumin is low, characteristic of minimal-change disease Urine random total protein 1292, also characteristic of minimal-change disease Patient takes prednisone 20 mg daily at home Plan: Bumex drip at 2 mg/h was initiated in the ED This was held while 25 gm 25% albumin was administered, the Bumex drip was then resumed Strict ins and outs Fluid restriction 1500 mL Low-sodium diet Prednisone 80 mg daily Nephrology consulted, follows Dr. Hoover #Transaminitis #Elevated alk phos #Hyperammonemia Patient presented with AST 94, ALT 79 Patient presented with alk phos 385 Patient distended with ammonia 35 Plan: Liver ultrasound ordered #Hypertension Per chart review Plan: Pending med rec, consider restarting home medications #Hypothyroidism This may be secondary to loss of thyroxine binding globulin in the urine leading to decreased total T4 and T3 though free T4 should remain normal due to compensatory production However, patient has had elevated TSH and low free T4 in the past She is not taking levothyroxine at home Plan: Follow-up repeat TSH and free T4 #Hyperlipidemia Per chart review Plan: Consider restarting home atorvastatin 40 mg nightly after med rec Hospital Maintenance: DVT ppx: Lovenox 40 mg subcu daily Diet: Low-sodium diet, fluid restriction 1500 mL IV lines: Peripheral IVs Code status: Full code Dispo: Med/tele for Bumex drip. Follow-up liver ultrasound. Patient was seen and discussed with my attending physician Dr. Cee MAYER and my senior resident Dr. Av MAYER PGY-2. Ricardo Zuleta DO PGY-1. Attending Provider Attestation/Addendum After examination of the patient and review of the clinical data I feel that this patient needs admission to the hospital for further treatment/evaluation. Plan of care discussed with patient and is in agreement. I Parvin Mike MD, attest that I was physically present for hou portions of evaluation, and examined patient, labs and imagings and plan of care were discussed with IM residents team, and I agree with the findings and plans documented above.
[2025-10-30] MEDS: ALBUMIN HUMAN-KJDA 25% IVPB 25 GM/100 ML BTL IV (21:54)
[2025-10-30 22:36] VITALS: BP 122/69; PULSE 89; RESP 18; TEMP 36.7; O2SAT 100
[2025-10-30 22:38] LABS: Collection Type, Urine Clean Catch
[2025-10-30 22:47] LABS: Bacteria,Urine Rare; Bilirubin,Urine Negative (Negative); Blood,Urine 3+ (Negative); Clarity,Urine Turbid (Clear/Hazy); Color,Urine Yellow (Lt Yel-Yel); Culture Indicated,Urine Not Indicated; Glucose, Urine Negative (Negative); Hyaline Casts,Urine < 1 /hpf (0-1); Ketones,Urine Negative (Negative); Leukocyte Esterase,Urine Negative (Negative); Nitrite,Urine Negative (Negative); PH,Urine 6.5 (5.0-7.0); Protein,Urine 3+ (Neg - Trace); RBC,Urine 17 /hpf (0-3); Specific Gravity,Urine 1.026 (1.001-1.035); Squamous Epithelial Cell,Urine 6 /hpf (0-5); Urobilinogen,Urine Negative mg/dL (0.0-1.0); WBC,Urine 10 /hpf (0-5)
[2025-10-30 22:49] LABS: HCG Qualitative,Urine Negative
[2025-10-30 22:50] LABS: Amphetamine/Methamp Scrn,U Negative (Negative); Barbiturate Screen,Urine Negative (Negative); Benzodiazepines Screen,Urine Negative (Negative); Benzoylecgonine Screen, Ur Negative (Negative); Fentanyl Screen,Urine Negative (Negative); Opiate Screen,Urine Negative (Negative); THC Screen,Urine Negative (Negative)
[2025-10-30 23:26] LABS: Creatinine,Random Urine 114 mg/dL (30-125); Protein Total, Random Urine 1292 mg/dL (1-14)
[2025-10-31] VITALS (9 sets, daily range): BP systolic 101–163; BP diastolic 69–91; PULSE 83–106; RESP 16–98; TEMP 36.1–36.8; O2SAT 95–99; BMI 49.9; BMI 49.1
--- NOTE | 2025-10-31 00:02 | PC.NURSE ---
REPORT GIVEN TO FLOOR RN CHANDAN
[2025-10-31] MEDS: ACETAMINOPHEN 325 MG TABLET 650 MG PO ×3 (00:51→13:47)
--- NOTE | 2025-10-31 01:18 | PRELIM_ITS ---
Ultrasound liver. October 30, 2025 2319 hours Clinical history: Elevated LFTs Comparison: No prior study is available for comparison. Findings: The liver measures 16.1 cm and demonstrates coarse parenchyma and nodular contour. There is no intrahepatic biliary ductal dilatation. The main portal vein demonstrates hepatopetal flow. The visualized hepatic veins appear patent. The gallbladder is surgically absent. The common bile duct is normal in caliber, measuring 4 mm. The pancreas is within normal limits to the extent visualized. There is a small perihepatic ascites. Impression: Cirrhotic liver. Small perihepatic ascites. Report Electronically Signed By: Gomez Campbell 10/31/2025 1:18:26 AM [EST]
[2025-10-31 05:31] LABS: Basophils # (Auto) 0.1 Thou/mm3 (0.0-0.2); Basophils % (Auto) 1 % (0-2.5); Eosinophils # (Auto) 0.3 Thou/mm3 (0.0-0.5); Eosinophils % (Auto) 3 % (0-10); Hematocrit 41.5 % (36.0-46.0); Hemoglobin 13.6 g/dL (12.0-16.0); Immature Granulocytes Auto 0.06 Thou/mm3 (0.00-0.00); Lymphocytes # (Auto) 3.1 Thou/mm3 (1.0-4.8); Lymphocytes % (Auto) 35 % (10-50); Mean Corpuscular HGB Conc 32.8 g/dl (31.0-37.0); Mean Corpuscular Hemoglobin 30.6 pg (25.0-35.0); Mean Corpuscular Volume 93 fL (80-100); Monocytes # (Auto) 0.6 Thou/mm3 (0.0-0.8); Monocytes % (Auto) 7 % (0-12); Neutrophils # (Auto) 4.8 Thou/mm3 (1.8-7.7); Neutrophils % (Auto) 54 % (37-80); Nucleated Red Blood Cell # 0.00 Thou/mm3 (0.00-0.00); Nucleated Red Blood Cell % 0 /100 WBC (0); Platelet Count 183 Thou/mm3 (140-440); RDW Standard Deviation 43.9 fL (36.4-46.3); Red Blood Count 4.45 Miln/mm3 (4.00-5.20); White Blood Count 8.9 Thou/mm3 (3.6-11.0)
[2025-10-31 06:11] LABS: Alanine Aminotransferase 53 U/L (10-49); Albumin, Serum 2.9 gm/dL (3.5-5.0); Albumin/Globulin Ratio 1.5 (1.2-2.2); Alkaline Phosphatase 307 U/L (46-116); Anion Gap 9 (7-16); Aspartate Amino Transferase 49 U/L (0-34); BUN/Creatinine Ratio 28 Ratio (12-20); Bilirubin,Total 0.6 mg/dL (0.3-1.2); Blood Urea Nitrogen 17 mg/dL (9-23); Calcium 7.7 mg/dL (8.3-10.6); Calcium (Corrected) 8.6 mg/dL (8.5-10.1); Carbon Dioxide 30.6 mMol/L (20.0-31.0); Cardiac Risk Estimate 3.7 RATIO (3.7-5.6); Chloride 103 mMol/L (98-107); Cholesterol 327 mg/dL (132-200); Creatinine (Component) 0.6 mg/dL (0.6-1.3); Estimated Creatinine Clearance 172.7 mL/min (>60); Free T4 (Free Thyroxine) 1.31 ng/dL (0.89-1.76); Globulin 2.0 gm/dL (2.3-3.5); Glucose 83 mg/dL (74-106); HDL Cholesterol 88 mg/dL (40-60); Magnesium 2.0 mg/dL (1.6-2.6); Osmolality,Calculated 285 (275-295); Potassium 3.2 mMol/L (3.4-5.1); Sodium 143 mMol/L (136-145); Thyroid Stimulating Hormone 6.62 uIU/mL (0.55-4.78); Total Protein 4.9 gm/dL (5.7-8.2); Triglycerides 410 mg/dL (30-150); eGFR > 60 See Note
[2025-10-31] MEDS: ENOXAPARIN SOD INJ 40 MG/0.4 ML SYRINGE SC (08:10)
[2025-10-31] MEDS: ALBUMIN HUMAN-KJDA 25% IVPB 25 GM/100 ML BTL IV (08:12)
[2025-10-31] MEDS: PANTOPRAZOLE 40 MG TABLET PO (08:18)
[2025-10-31] MEDS: BUMETANIDE INJ 20 MG in CONTAINER,EMPTY 50 ML 1 BAG 8 MG IV ×2 (08:22→18:29)
[2025-10-31] MEDS: SPIRONOLACTONE 25 MG TABLET PO (09:52)
--- NOTE | 2025-10-31 10:49 | PC.SS ---
SS met with patient regarding her d/c plan. Pt is alert/oriented. Pt was admitted for Nephrotic Syndrome. Pt confirmed demographic and contact information is correct on facesheet. Pt resides with her kids. Pt ambulates independently without assistance or DME. Pt is ok with all ADLs. Patient?s pharmacy of choice is [facility] [address]. Pt named her boyfriend, Flakito Fierro medical decision maker if she is unable. Patient?s choice is to return home upon d/c. Pt states she is not diabetic and is not on dialysis. Boyfriend will provide transportation. Pt states she followed up with PCP yesterday (10-29-25). D/C plan: Return home Next of Kin: Marquis Palominoos, boyfriend, phone# [phone] PCP: Dr. Sammi Penny from [facility] in [place] Address: Correct on facesheet
--- NOTE | 2025-10-31 11:25 | PD.RESCONSUL ---
HPI Data of Consult Consult date: 10/31/25 Requesting Physician: Parvin Mike MD Admitting Provider: Parvin Mike MD Attending Provider: Parvin Mike MD Primary Care Provider: Candis Penny NP Consult Narrative Reason for consult: Anasarca/nephrotic syndrome History of present illness: Ms. Anand is a 40-year-old female past medical history of Protenuria , anasarca-,minimal-change nephropathy (biopsy-proven 11/2024) sent from her insect control aide Dr. Hoover's office due to worsening anasarca resistant to oral Lasix. Pt was diagnosed with minimal changed disease in childhood and never took medications until Aug 2024, she was started on prednisone (60mg -> transitioned to 40mg QD -> now on 20mg daily) and lasix 40mg daily. Pt states she also adheres to a low salt diet however approximately a month ago she noticed she has been gaining weight and around Thanksgiving she had worsening anasarca extending all the way to her abdomen. Had 25 lb weight gain over 4 weeks. Patient followed up with her insect control aide Dr. Hoover who recommended for her to come to the ED to be hospitalized for a Bumex drip. ED course: - Vitals within normal limits - Labs: WBC 11.8, AST 94, ALT 79, alk phos 385, ammonia 35, total serum protein 5.1, serum albumin 2.9 - Imaging: Chest x-ray negative for pneumonia or pulmonary edema, mild elevation of left hemidiaphragm. EKG showed sinus rhythm V rate of 95 and a QTc of 407. - Urine: Random total protein 1292, turbid, 3+ protein, 3+ blood, 17 RBCs, 10 WBCs, 6 squamous epithelial cells - In ED, patient was started on Bumex drip of 2 mg/h, also received acetaminophen 650 Past Medical History: as above Surgical History: noncontributory Social History: Denies history of smoking, denies recreational drug use. Occasional alcohol use. Current Medications: ASA 81 mg daily, atorvastatin 40 mg daily, Lasix 40 mg daily, lisinopril 5 mg daily, protonix ER 20 mg daily, prednisone 20 mg daily Allergies: No known drug allergies Patient was admitted for management of worsening anasarca secondary to nephrotic syndrome. Nephrology was consulted for management of above. 10/31/25: Patient was seen and assessed at bedside. Continues to have significant anasarca on exam, continue Bumex 2 mg overnight. Cr 0.6 (baseline 0.5-0.7). Potassium 3.2, replete with oral potassium 40 mEq x2. Magnesium 2.0, replete with 2 g IV magnesium sulfate. Urine protein creatinine ratio elevated at 11g. 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 Start lisinopril 10 mg daily. Strict INOs and daily weights. cc:: cc: Parvin Mike MD Review of Systems Review of Systems Narrative Review of Systems: CONSTITUTIONAL: Patient denies any fever, chills. Weight gain more than 55 pounds since February HEENT: Denies any visual disturbances or hearing problems. CARDIOVASCULAR: Patient denies any chest pain, shortness of breath. ++ swelling in the lower extremities. PULMONARY: Patient denies any shortness of breath, cough. GASTROINTESTINAL: Patient denies any abdominal pain, constipation, nausea, vomiting, diarrhea. GENITOURINARY: Patient denies any urinary symptoms of burning or frequency or hematuria, denies any form in the urine. SKIN: Denies any rash. MUSCULOSKELETAL: Denies any muscular skeletal problems of joint pains. NEUROLOGICAL: Denies any neurological problems of strokes, seizures or confusion. Denies any memory problems. PSYCHIATRIC: Denies any depression or anxiety. LYMPHATICS : No lymphadenopathy Exam Vital Signs Temp Pulse Resp BP Pulse Ox O2 Del Method 98.2 F 90 17 101/69 96 Room Air 10/31/25 08:00 10/31/25 09:52 10/31/25 08:00 10/31/25 09:52 10/31/25 08:00 10/31/25 08:00 Narrative Exam Physical Exam General: Awake and in no acute distress. Conversational and non-toxic appearing. HEENT: Normocephalic, atraumatic, mucous membranes moist. Mae faces. Heart: Regular rate and rhythm, normal S1 and S2, no murmurs appreciated. Lungs: Clear to auscultation with no wheezing or crackles. Abdomen: Soft, nondistended, nontender, positive bowel sounds. No guarding or rebound tenderness. Neurologic: Alert and oriented x3, no gross neurological deficit, and patient able to move all 4 extremities. Extremities: 3+ pitting lower extremity edema extending up to abdomen, anasarca. Skin: No rash or ecchymoses. Results Labs 11/01/25 04:32 11/01/25 04:32 Labs: Short CBC 10/30/25 10/31/25 Range/Units 18:53 04:30 WBC 11.8 H 8.9 (3.6-11.0) Thou/mm3 Hgb 15.7 13.6 D (12.0-16.0) g/dL Hct 46.7 H 41.5 (36.0-46.0) % Plt Count 231 183 D (140-440) Thou/mm3 BMP 10/30/25 10/31/25 18:53 04:30 Sodium 141 143 Potassium 4.0 3.2 L D Chloride 105 103 Carbon Dioxide 29.4 30.6 BUN 19 17 Creatinine 0.7 0.6 Glucose 105 83 Calcium 8.1 L 7.7 L Cardiac Enzymes 10/30/25 Range/Units 18:53 Troponin I < 0.002 (0.0-0.045) ng/mL Liver Function 10/30/25 10/31/25 Range/Units 18:53 04:30 Total Bilirubin 0.6 0.6 (0.3-1.2) mg/dL AST 94 H 49 H (0-34) U/L ALT 79 H 53 H (10-49) U/L Alkaline Phosphatase 385 H 307 H D (46-116) U/L Albumin 2.9 L 2.9 L (3.5-5.0) gm/dL Urine 10/30/25 Range/Units 21:57 Urine Color Yellow (Lt Yel-Yel) Urine Clarity Turbid A (Clear/Hazy) Urine pH 6.5 (5.0-7.0) Ur Specific [place] 1.026 (1.001-1.035) Urine Protein 3+ A (Neg - Trace) Urine Glucose (UA) Negative (Negative) Quality Measures Quality Measures none Medications Home Medications and Allergies Home Medications ?Medication ?Instructions ?Recorded ?Confirmed ?Type prednisone 20 mg tablet 20 mg PO QDAY 10/31/25 10/31/25 History Allergies Allergy/AdvReac Type Severity Reaction Status Date / Time No Known Allergies Allergy Verified 10/30/25 17:40 Visit Medications Acetaminophen (Acetaminophen 325 Mg Tablet) 650 mg PO Q6H PRN PRN Reason: Fever >100.4 Stop: 11/29/25 21:20 Last Admin: 10/31/25 08:12 Dose: 650 mg Cyclosporine (Cyclosporine 100 Mg Capsule) 100 mg PO BID [facility] Stop: 11/30/25 20:59 Cyclosporine (Cyclosporine 25 Mg Capsule) 100 mg PO X1 ONE Stop: 10/31/25 11:31 Enoxaparin Sodium (Enoxaparin Sod Inj 40 Mg/0.4 Ml Syringe) 40 mg SC QDAY [facility] Stop: 11/14/25 08:59 Last Admin: 10/31/25 08:10 Dose: 40 mg Bumetanide 20 mg/ IV (Miscellaneous Supplies) 80 mls @ 8 mls/hr IV .Q10H [facility] Stop: 10/31/25 14:42 Last Admin: 10/31/25 08:22 Dose: 2 mg/hr, 8 mls/hr Albumin Human (Albuminex 25% Ivpb) 25 gm in 100 mls @ 100 mls/hr IV QDAY [facility] Stop: 11/02/25 21:30 Last Admin: 10/31/25 08:12 Dose: 100 mls/hr Lisinopril (Lisinopril 2.5 Mg Tablet) 5 mg PO QDAY [facility] Stop: 11/30/25 11:14 Pantoprazole Sodium (Pantoprazole 40 Mg Tablet) 40 mg PO QDAY [facility] Stop: 11/30/25 08:59 Last Admin: 10/31/25 08:18 Dose: 40 mg Pravastatin Sodium (Pravastatin Sodium 10 Mg Tablet) 20 mg PO QDAY@2300 [facility] Stop: 11/30/25 22:59 Discontinued Medications Atorvastatin Calcium (Atorvastatin Calcium 20 Mg Tablet) 40 mg PO HS [facility] Stop: 11/30/25 20:59 Atorvastatin Calcium (Atorvastatin Calcium 20 Mg Tablet) 40 mg PO QDAY@2300 [facility] Stop: 11/30/25 22:59 Cyclosporine (Cyclosporine 100 Mg Capsule) 100 mg PO BID [facility] Stop: 11/30/25 10:59 Potassium Chloride (Potassium Chloride 20 Meq Tabcr) 40 meq PO X1 ONE Stop: 10/31/25 08:02 Last Admin: 10/31/25 08:18 Dose: 40 meq Prednisone (Prednisone 20 Mg Tablet) 80 mg PO QDAY [facility] Stop: 11/06/25 22:40 Last Admin: 10/31/25 08:12 Dose: 80 mg Spironolactone (Spironolactone 25 Mg Tablet) 25 mg PO QDAY [facility] Stop: 11/30/25 08:59 Last Admin: 10/31/25 09:52 Dose: 25 mg Assessment & Plan Plan Patient is a 40-year-old female past medical history of minimal-change disease presenting to the ED from 10/30/[address] Hoover's office for worsening anasarca resistant to oral Lasix. Admitted to telemetry for management of worsening anasarca secondary to nephrotic syndrome. Nephrology was consulted for management of above. #Minimal change disease (DARYL) #Steroid resistant nephrotic syndrome #Anasarca - Presented to the ED from Dr. Hoover's clinic 10/30 for worsening anasarca secondary to uncontrolled minimal change disease (confirmed on path report 09/2024). Reported 22 lb weight gain within 1 month. No improvement with swelling despite Lasix 40 mg daily at home. - Has been on long course of prednisone but does not appear to be controlling DARYL. Continues to have significant proteinuria on UA (11g protein in urine). 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 - Outpatient, attempted to prescribe cyclosporine but denied due to insurance issues - Started on IV Bumex 2 mg in ED Plan: - Continue Bumex 2 mg/h x10 hrs- IV drip - Start cyclosporine 100 mg BID as patient has not been responding to steroids. Check cyclosporine blood trough in 3-4 days to maintain level of 150-200 ng/mL. - Discontinue steroids - Follow up urine studies - Start on atorvastatin 80 mg HS - Start on Lisinopril 10 mg daily to reduce proteinuria and lower glomerular pressure - Strict INOs - Daily weights - Fluid restriction 1500 mL - Low sodium diet - Monitor daily renal panel #Hypokalemia - K 3.2 today - Likely secondary to Bumex drip Plan: - Replete potassium and magnesium judiciously - Keep K >4 and Mg >2 - Monitor daily CMP #Transaminitis #Elevated alk phos #Hyperammonemia #Hypertension #Hypothyroidism #Hyperlipidemia 2/2 DARYL - Defer to primary team for management Thank you for your consultation, please do not hesitate to reach out if you have any question or concern Patient plan of care was discussed with the attending physician, Dr. Hoover. Martha Mayo DO, PGY-1 Attending Provider Attestation/Addendum Patient currently seen and examined with resident physician Dr. Mayo. Note reviewed, agree with findings and recommendations. Patient currently seen in medical floor. Well-known to me from my nephrology clinic. Patient had a kidney biopsy in November 2024 which showed minimal-change disease. Was started on high-dose steroids and currently on 20 mg p.o. prednisone. Urine protein/creatinine continues to be greater than 10 g. Last month I added cyclosporin for a steroid resistant nephrotic syndrome. However insurance did not cover. Came back yesterday to my office and noted to help 25 pound weight gain and unable to walk with this shortness of breath in the outpatient setting. Sent her to the hospital for IV diuretics. Patient was started on Bumex drip overnight. Currently seen in medical floor. Will start her on calcineurin inhibitor for steroid resistant nephrotic syndrome. Noted significant hyperlipidemia secondary to nephrotic syndrome-add high potency steroids and NESS inhibitors. Hold off on prednisone. Will need calcineurin inhibitors for 1 year. No need for repeat biopsy. Plan of care discussed with primary team. Thank you Quentin for allowing me to participate in the care of Ms. Anand
--- NOTE | 2025-10-31 14:35 | PD.RESPRO ---
Documentation for date of: 10/31/25 Subjective Subjective Interval history: Patient admitted overnight. Patient seen and examined at bedside. Patient endorses headache and nausea, likely secondary to aggressive diuresis and volume contraction, managed with Tylenol and Zofran. VSS. WBC decreased to 8.9, hemoglobin stable 13.6, potassium 3.2 repleted with 40 mEq x 2, creatinine stable 0.6, AST/ALT downtrending, T4 within normal limits. Liver ultrasound shows cirrhosis with fatty infiltration. Continue Bumex drip today. Another Bumex drip at 1700. Per nephrology, start cyclosporine 100 mg twice daily. Started pravastatin 20 mg as per pharmacy, drug interaction between high intensity statin and cyclosporine. Discontinued steroids. Will start lisinopril 10 mg tomorrow for renal protection. Exam Vital Signs Temp Pulse Resp BP Pulse Ox O2 Del Method 97.8 F 93 17 129/83 98 Room Air 10/31/25 12:00 10/31/25 12:57 10/31/25 12:00 10/31/25 12:57 10/31/25 12:00 10/31/25 12:00 Narrative Exam GENERAL: AOx3, no acute distress, significant anascarca, obese HEENT: mucous membranes moist, bilateral sclera anicteric CARDIOVASCULAR: regular rate and rhythm, S1/S2 present, no murmurs appreciated PULMONARY: clear to auscultation bilaterally, no rales/rhonchi/wheezes ABDOMINAL: soft, non-tender,no rebound/guarding, bowel sounds present, abdominal anascarca EXTREMITIES: 3+ pitting edema BLE up to abdomen SKIN: warm and dry, intact, no rashes NEURO: CN II-XII grossly intact, no focal deficits, alert, following commands Objective Labs 10/31/25 04:30 10/31/25 04:30 Labs: Laboratory Results - last 24 hr 10/30/25 10/30/25 10/30/25 18:53 21:52 21:57 WBC 11.8 H RBC 4.97 Hgb 15.7 Hct 46.7 H MCV 94 MCH 31.6 MCHC 33.6 RDW Std Deviation 44.6 Plt Count 231 Neut % (Auto) 62 Lymph % (Auto) 29 [place] % (Auto) 6 Eos % (Auto) 2 Baso % (Auto) 1 Neut # (Auto) 7.3 Lymph # (Auto) 3.4 [place] # (Auto) 0.7 Eos # (Auto) 0.2 Baso # (Auto) 0.1 Immature Gran # (Auto) 0.07 H Absolute Nucleated RBC 0.00 Immature Gran % 1 H Nucleated RBC % 0 Sodium 141 Potassium 4.0 Chloride 105 Carbon Dioxide 29.4 Anion Gap 7 BUN 19 Creatinine 0.7 Estim Creat Clear Calc 137.2 eGFR > 60 BUN/Creatinine Ratio 27 H Glucose 105 Calculated Osmolality 283 Calcium 8.1 L Corrected Calcium 9.0 Magnesium 2.5 Total Bilirubin 0.6 AST 94 H ALT 79 H Alkaline Phosphatase 385 H Ammonia 35 H Troponin I < 0.002 B-Natriuretic Peptide < 20 Total Protein 5.1 L Albumin 2.9 L Globulin 2.2 L Albumin/Globulin Ratio 1.3 Triglycerides Cholesterol LDL Cholesterol, Calc HDL Cholesterol Cholesterol/HDL Ratio TSH Free T4 Ur Collection Type Clean Catch Urine Color Yellow Urine Clarity Turbid A Urine pH 6.5 Ur Specific [place] 1.026 Urine Protein 3+ A Urine Glucose (UA) Negative Urine Ketones Negative Urine Blood 3+ A Urine Nitrite Negative Urine Bilirubin Negative Urine Urobilinogen (Auto) Negative Ur Leukocyte Esterase Negative Urine RBC 17 H Urine WBC 10 H Ur Squamous Epith Cells 6 H Urine Bacteria Rare Hyaline Casts < 1 Ur Culture Indicated? Not Indicated Ur Random Creatinine 114 U Random Total Protein 1292 H Urine HCG, Qual Negative Urine Opiates Screen Negative Urine Fentanyl Screen Negative Ur Barbiturates Screen Negative U Amphetamin/Meth Scrn Negative U Benzodiazepines Scrn Negative U Cocaine Metab Screen Negative U Marijuana (THC) Screen Negative 10/31/25 04:30 WBC 8.9 RBC 4.45 Hgb 13.6 D Hct 41.5 MCV 93 MCH 30.6 MCHC 32.8 RDW Std Deviation 43.9 Plt Count 183 D Neut % (Auto) 54 Lymph % (Auto) 35 [place] % (Auto) 7 Eos % (Auto) 3 Baso % (Auto) 1 Neut # (Auto) 4.8 Lymph # (Auto) 3.1 [place] # (Auto) 0.6 Eos # (Auto) 0.3 Baso # (Auto) 0.1 Immature Gran # (Auto) 0.06 H Absolute Nucleated RBC 0.00 Immature Gran % 1 H Nucleated RBC % 0 Sodium 143 Potassium 3.2 L D Chloride 103 Carbon Dioxide 30.6 Anion Gap 9 BUN 17 Creatinine 0.6 Estim Creat Clear Calc 172.7 eGFR > 60 BUN/Creatinine Ratio 28 H Glucose 83 Calculated Osmolality 285 Calcium 7.7 L Corrected Calcium 8.6 Magnesium 2.0 Total Bilirubin 0.6 AST 49 H ALT 53 H Alkaline Phosphatase 307 H D Ammonia Troponin I B-Natriuretic Peptide Total Protein 4.9 L Albumin 2.9 L Globulin 2.0 L Albumin/Globulin Ratio 1.5 Triglycerides 410 H Cholesterol 327 H LDL Cholesterol, Calc TNP HDL Cholesterol 88 H Cholesterol/HDL Ratio 3.7 TSH 6.62 H Free T4 1.31 Ur Collection Type Urine Color Urine Clarity Urine pH Ur Specific [place] Urine Protein Urine Glucose (UA) Urine Ketones Urine Blood Urine Nitrite Urine Bilirubin Urine Urobilinogen (Auto) Ur Leukocyte Esterase Urine RBC Urine WBC Ur Squamous Epith Cells Urine Bacteria Hyaline Casts Ur Culture Indicated? Ur Random Creatinine U Random Total Protein Urine HCG, Qual Urine Opiates Screen Urine Fentanyl Screen Ur Barbiturates Screen U Amphetamin/Meth Scrn U Benzodiazepines Scrn U Cocaine Metab Screen U Marijuana (THC) Screen Quality Measures Quality Measures none Assessment & Plan Assessment Current Active Medications: Generic Name Dose Route Start Last Admin Trade Name Freq PRN Reason Stop Dose Admin Acetaminophen 650 mg 10/30/25 21:21 10/31/25 13:47 Acetaminophen 325 Mg Tablet PO 11/29/25 21:20 650 mg Q6H PRN Administration Fever >100.4 Cyclosporine 100 mg 10/31/25 21:00 Cyclosporine 100 Mg Capsule PO 11/30/25 20:59 BID JOSE Enoxaparin Sodium 40 mg 10/31/25 09:00 10/31/25 08:10 Enoxaparin Sod Inj 40 Mg/0.4 Ml Syringe SC 11/14/25 08:59 40 mg QDAY JOSE Administration Bumetanide 20 mg/ IV 80 mls @ 8 mls/hr 10/30/25 18:43 10/31/25 08:22 Miscellaneous Supplies IV 10/31/25 14:42 2 mg/hr .Q10H JOSE 8 mls/hr 2 MG/HR Administration Albumin Human 25 gm in 100 mls @ 100 mls/hr 10/30/25 21:31 10/31/25 08:12 Albuminex 25% Ivpb IV 11/02/25 21:30 100 mls/hr QDAY JOSE Administration Magnesium Sulfate 2 gm in 50 mls @ 25 mls/hr 10/31/25 14:34 Magnesium Sulfate Ivpb IV 10/31/25 16:33 X1 ONE Lisinopril 10 mg 11/01/25 09:00 Lisinopril 2.5 Mg Tablet PO 12/01/25 08:59 QDAY JOSE Pantoprazole Sodium 40 mg 10/31/25 09:00 10/31/25 08:18 Pantoprazole 40 Mg Tablet PO 11/30/25 08:59 40 mg QDAY JOSE Administration Potassium Chloride 40 meq 10/31/25 14:34 Potassium Chloride 20 Meq Tabcr PO 10/31/25 14:35 X1 ONE Pravastatin Sodium 20 mg 10/31/25 23:00 Pravastatin Sodium 10 Mg Tablet PO 11/30/25 22:59 QDAY@2300 [facility] Plan Madhavi Anand 40F pmhx significant for minimal-change disease (steroid resistant, diagnosed 2023), HTN, and HLD presented to [facility] ED on 10/30 for anasarca, admitted for minimal change disease failing outpatient tx. #Minimal change disease/Steroid resistant nephrotic syndrome #Diffuse anasarca Secondary to above #Hypoalbuminemi aSecondary to above Diagnosed 2023 and started treatment this November on pred [address] Hoover who advised the patient to present to the hospital for a Bumex drip after seeing the patient in the office earlier the day of presentation. Patient presented with diffuse anasarca with 25 pound weight gain over the past month. Serum total protein and albumin is low, urine random total protein 1292, characteristic of minimal-change disease. s/p albumin 25g in ED mid way through first Bumex drip Plan: - Bumex drip at 2 mg/h, ordered another Bumex drip 2 mg/hr at 1700 - Strict I&O, daily weights, 1.5L fluid restriction, low sodium diet - Discontinued prednisone due to steroid resistant status of minimal change disease - Nephrology consulted, recs appreciated: cyclosporine 100 mg BID - Started pravastatin 20 mg QD due to interaction with cyclosporine with high dose statin, per pharmacy - F/u urine studies #Transaminitis, likely congestive 2/2 anascarca from minimal change disease, improving #MAFLD Patient presented with AST 94, ALT 79, alk phos 385 and ammonia 35 with no abd pain. Likely 2/2 vascular congestion and fluid overload. Liver US shows cirrhosis with fatty infiltration. Plan: - Diuresis as above - Recommend outpatient follow up with PCP regarding MAFLD #Hypertension On admission SBP 159/59 and is on home Lisinopril 5 mg QD. Plan: - Started lisinopril 10 mg QD for minimal change disease #Hyperlipidemia 10/30 lipid panel trig 410, cholesterol 327, LDL TNP, HDL 88. However on 10/27, trig 227, alba 248, LDL 112 and HDL 8. a1c 5.7. Plan: - Pravastatin 20 mg QD as above #Electrolyte abnormalities #Hypokalemia / diuresis Plan: - Replete prn Hospital management: Lines: PIV Diet: low sodium with 1.5L fluid restrict Bowel: none GI prophylaxis: PO pantoprazole 40 mg QD DVT prophylaxis: Lovenox Disposition: med surg, bumex drip CODE STATUS: FULL CODE Plan of care discussed with attending Dr. Herring, and PGY-3 Dr. Duckworth. Deb Mayo, DO PGY-1 Internal Medicine Senior Resident Attestation: The patient was still having anasarca. She was diuresing well with Bumex drip. As sees resistant to steroids for her minimal Irving disease nephrotic syndrome, she was started on cyclosporine 100 mg twice daily, but later switched to tacrolimus 2 mg twice daily. She was also started on atorvastatin 20 mg daily. We will continue to diurese her and monitor ins and outs. I discussed with and supervised the video intern physician involved in the care of this patient. I personally saw and examined the patient and discussed the assessment and plan with the entire medicine team, including my attending. I agree with the assessment and plan as documented above. Ko Duckworth MD PGY3 Internal Medicine Attending Provider Attestation/Addendum I have discussed and was present for the essential components of the history, physical examination, diagnosis, and treatment plan with the resident. I agree with the patient's care as documented by the resident and amended herein by me. Quentin Herring DO. Although this document has been carefully reviewed, there may still be some phonetic and other typographical errors. These errors are purely grammatical due to imperfections in the software program and should not be construed in any way to compromise the substance of the patient's medical care during this visit.
--- NOTE | 2025-10-31 18:36 | PC.NURSE ---
Patient strict I's and O's. Today I counted 910ml of oral intake, not including the intake from patient's Bumex drip. A hat was placed in the toilet for measurement of output. Since patient has been using hat, there has been 2050ml of urine output.
[2025-10-31] MEDS: TACROLIMUS 1 MG CAPSULE 4 MG PO (21:51)
[2025-10-31] MEDS: PRAVASTATIN SODIUM 10 MG TABLET 20 MG PO (21:54)
[2025-11-01] VITALS (9 sets, daily range): BP systolic 100–130; BP diastolic 56–89; PULSE 78–96; RESP 13–94; TEMP 35.8–37.1; O2SAT 93–97
[2025-11-01] MEDS: BUMETANIDE INJ 20 MG in CONTAINER,EMPTY 50 ML 1 BAG 8 MG IV (05:11)
[2025-11-01 05:54] LABS: Basophils # (Auto) 0.0 Thou/mm3 (0.0-0.2); Basophils % (Auto) 0 % (0-2.5); Eosinophils # (Auto) 0.0 Thou/mm3 (0.0-0.5); Eosinophils % (Auto) 0 % (0-10); Hematocrit 40.4 % (36.0-46.0); Hemoglobin 13.8 g/dL (12.0-16.0); Immature Granulocytes Auto 0.03 Thou/mm3 (0.00-0.00); Lymphocytes # (Auto) 1.4 Thou/mm3 (1.0-4.8); Lymphocytes % (Auto) 21 % (10-50); Mean Corpuscular HGB Conc 34.2 g/dl (31.0-37.0); Mean Corpuscular Hemoglobin 30.8 pg (25.0-35.0); Mean Corpuscular Volume 90 fL (80-100); Monocytes # (Auto) 0.6 Thou/mm3 (0.0-0.8); Monocytes % (Auto) 10 % (0-12); Neutrophils # (Auto) 4.5 Thou/mm3 (1.8-7.7); Neutrophils % (Auto) 68 % (37-80); Nucleated Red Blood Cell # 0.00 Thou/mm3 (0.00-0.00); Nucleated Red Blood Cell % 0 /100 WBC (0); Platelet Count 184 Thou/mm3 (140-440); RDW Standard Deviation 40.3 fL (36.4-46.3); Red Blood Count 4.48 Miln/mm3 (4.00-5.20); White Blood Count 6.6 Thou/mm3 (3.6-11.0)
[2025-11-01] MEDS: ONDANSETRON INJ 2 MG/ML INJ 2 ML 4 MG IVP (06:03)
[2025-11-01 06:36] LABS: Alanine Aminotransferase 29 U/L (10-49); Albumin, Serum 3.0 gm/dL (3.5-5.0); Albumin/Globulin Ratio 1.4 (1.2-2.2); Alkaline Phosphatase 263 U/L (46-116); Anion Gap 12 (7-16); Aspartate Amino Transferase 25 U/L (0-34); BUN/Creatinine Ratio 20 Ratio (12-20); Bilirubin,Total 1.1 mg/dL (0.3-1.2); Blood Urea Nitrogen 14 mg/dL (9-23); Calcium 7.6 mg/dL (8.3-10.6); Calcium (Corrected) 8.4 mg/dL (8.5-10.1); Carbon Dioxide 39.8 mMol/L (20.0-31.0); Chloride 90 mMol/L (98-107); Creatinine (Component) 0.7 mg/dL (0.6-1.3); Estimated Creatinine Clearance 148.0 mL/min (>60); Globulin 2.1 gm/dL (2.3-3.5); Glucose 113 mg/dL (74-106); Osmolality,Calculated 284 (275-295); Sodium 142 mMol/L (136-145); Total Protein 5.1 gm/dL (5.7-8.2); eGFR > 60 See Note
[2025-11-01 06:39] LABS: Potassium 2.3 mMol/L (3.4-5.1)
[2025-11-01] MEDS: POTASSIUM CHL 10 mEq IVPB 10 MEQ/100 ML BAG 100 MEQ IV ×5 (07:01→16:30)
[2025-11-01] MEDS: TACROLIMUS 1 MG CAPSULE 4 MG PO ×2 (08:04→21:25)
--- NOTE | 2025-11-01 08:11 | PC.NURSE ---
Patient refused morning lovenox injection Patient was provided education regarding the medication administration, however still refused.
[2025-11-01 08:32] LABS: Magnesium 1.4 mg/dL (1.6-2.6); Phosphorous 4.3 mg/dL (2.4-5.1)
--- NOTE | 2025-11-01 09:24 | ESPR_ITS ---
<Statement entered by Joni Kaiser MD - 11/02/25 09:52> I saw and examined patient personally and supervised PGY 1 resident, Dr. Peter with formulating a management plan. I agree with the documentation with the exceptions as listed below. Patient presented with nephrotic syndrome resistant to steroids. She received 1 dose of cyclophosphamide [the last dose in hospital] and then was started on tacrolimus 4 mg p.o. twice daily for treatment of nephrotic syndrome. Also on diuresis with Bumex infusion to continue for a total of 3 more days for fluid removal. Patient developed contraction alkalosis with bicarb of 39 today, gave 1 dose of acetazolamide 250 mg IV x 1. Also K2.3 and repleted with KCl 40 mEq p.o. x 1, KCl 40 mEq IV x 1 and follow-up renal panel at 1 PM. Pharmacy most likely will have restock cyclosproine by 11/02 and we will transition from tacrolimus tomorrow. Nephrology, Dr Hoover consulted. Appreciate recommendations. Plan of care discussed with Attending Dr. Nima Kaiser MD PGY 2 Disclaimer: This note was dictated by speech recognition. Minor errors in restaurant inspector may be present due to voice recognition software. Documentation for date of: 11/01/25 Subjective Subjective Interval history: Patient seen and examined at bedside; -1325ml fluid out over last 24 hours. Placed on tacrolimus due to lack of cyclophosphamide in hospital today; will switch back likely tomorrow as supplies come in. Exam Vital Signs Temp Pulse Resp BP Pulse Ox O2 Del Method 96.8 F 80 17 120/86 H 96 Room Air 11/01/25 08:00 11/01/25 08:04 11/01/25 08:00 11/01/25 08:04 11/01/25 08:00 11/01/25 08:00 Objective Labs 11/01/25 04:32 11/01/25 12:45 Labs: Laboratory Results - last 24 hr 11/01/25 04:32 WBC 6.6 RBC 4.48 Hgb 13.8 Hct 40.4 MCV 90 MCH 30.8 MCHC 34.2 RDW Std Deviation 40.3 Plt Count 184 Neut % (Auto) 68 Lymph % (Auto) 21 [place] % (Auto) 10 Eos % (Auto) 0 Baso % (Auto) 0 Neut # (Auto) 4.5 Lymph # (Auto) 1.4 [place] # (Auto) 0.6 Eos # (Auto) 0.0 Baso # (Auto) 0.0 Immature Gran # (Auto) 0.03 H Absolute Nucleated RBC 0.00 Immature Gran % 1 H Nucleated RBC % 0 Sodium 142 Potassium 2.3 L* D Chloride 90 L Carbon Dioxide 39.8 H Anion Gap 12 BUN 14 Creatinine 0.7 Estim Creat Clear Calc 148.0 eGFR > 60 BUN/Creatinine Ratio 20 Glucose 113 H Calculated Osmolality 284 Calcium 7.6 L Corrected Calcium 8.4 L Phosphorus 4.3 Magnesium 1.4 L Total Bilirubin 1.1 D AST 25 ALT 29 Alkaline Phosphatase 263 H D Total Protein 5.1 L Albumin 3.0 L Globulin 2.1 L Albumin/Globulin Ratio 1.4 Quality Measures Quality Measures none Assessment & Plan Assessment Current Active Medications: Generic Name Dose Route Start Last Admin Trade Name Freq PRN Reason Stop Dose Admin Acetaminophen 650 mg 10/30/25 21:21 10/31/25 13:47 Acetaminophen 325 Mg Tablet PO 11/29/25 21:20 650 mg Q6H PRN Administration Fever >100.4 Enoxaparin Sodium 40 mg 10/31/25 09:00 11/01/25 08:11 Enoxaparin Sod Inj 40 Mg/0.4 Ml Syringe SC 11/14/25 08:59 Not Given QDAY JOSE Albumin Human 25 gm in 100 mls @ 100 mls/hr 10/30/25 21:31 10/31/25 08:12 Albuminex 25% Ivpb IV 11/02/25 21:30 100 mls/hr QDAY JOSE Administration Bumetanide 20 mg/ IV 80 mls @ 8 mls/hr 10/31/25 17:00 11/01/25 05:11 Miscellaneous Supplies IV 11/01/25 12:59 2 mg/hr .Q10H JOSE 8 mls/hr 2 MG/HR Administration Potassium Chloride 10 meq in 100 mls @ 100 mls/hr 11/01/25 06:42 11/01/25 07:01 Kcl Ivpb IV 11/01/25 10:41 100 mls/hr Q1H JOSE Administration Magnesium Sulfate 2 gm in 50 mls @ 25 mls/hr 11/01/25 09:02 Magnesium Sulfate Ivpb IV 11/01/25 11:01 X1 ONE Lisinopril 10 mg 11/01/25 09:00 11/01/25 08:04 Lisinopril 2.5 Mg Tablet PO 12/01/25 08:59 10 mg QDAY JOSE Administration Ondansetron HCl 4 mg 11/01/25 05:18 11/01/25 06:03 Ondansetron Inj 2 Mg/Ml Inj 2 Ml IVP 12/01/25 05:17 4 mg Q6HR PRN Administration NAUSEA OR VOMITING Protocol Pantoprazole Sodium 40 mg 10/31/25 09:00 10/31/25 08:18 Pantoprazole 40 Mg Tablet PO 11/30/25 08:59 40 mg QDAY JOSE Administration Pravastatin Sodium 20 mg 10/31/25 23:00 10/31/25 21:54 Pravastatin Sodium 10 Mg Tablet PO 11/30/25 22:59 20 mg QDAY@2300 JOSE Administration Tacrolimus 4 mg 10/31/25 21:00 11/01/25 08:04 Tacrolimus 1 Mg Capsule PO 11/30/25 20:59 4 mg BID JOSE Administration Plan Madhavi Anand 40F pmhx significant for minimal-change disease (steroid resistant, diagnosed 2023), HTN, and HLD presented to [facility] ED on 10/30 for anasarca, admitted for minimal change disease failing outpatient tx. #Minimal change disease/Steroid resistant nephrotic syndrome #Diffuse anasarca secondary to above #Hypoalbuminemia secondary to above Diagnosed 2023 and started treatment this November on pred [address] Hoover who advised the patient to present to the hospital for a Bumex drip after seeing the patient in the office earlier the day of presentation. Patient presented with diffuse anasarca with 25 pound weight gain over the past month. Serum total protein and albumin is low, urine random total protein 1292, characteristic of minimal-change disease. s/p albumin 25g in ED mid way through first Bumex drip Plan: - Bumex drip at 2 mg/h - Strict I&O, daily weights, 1.5L fluid restriction, low sodium diet - Discontinued prednisone due to steroid resistant status of minimal change disease - Nephrology consulted, recs appreciated: cyclosporine 100 mg BID (patient on tacrolimus 4mg BID until cyclosporine is restocked) - Started pravastatin 20 mg QD due to interaction with cyclosporine with high dose statin, per pharmacy - F/u urine studies #Transaminitis, likely congestive 2/2 anascarca from minimal change disease, improving #MAFLD Patient presented with AST 94, ALT 79, alk phos 385 and ammonia 35 with no abd pain. Likely 2/2 vascular congestion and fluid overload. Liver US shows cirrhosis with fatty infiltration. Plan: - Diuresis as above - Recommend outpatient follow up with PCP regarding MAFLD #Hypertension On admission SBP 159/59 and is on home Lisinopril 5 mg QD. Plan: - Started lisinopril 10 mg QD for minimal change disease #Hyperlipidemia 10/30 lipid panel trig 410, cholesterol 327, LDL TNP, HDL 88. However on 10/27, trig 227, alba 248, LDL 112 and HDL 8. a1c 5.7. Plan: - Pravastatin 20 mg QD as above #Electrolyte abnormalities #Hypokalemia / diuresis Plan: - Replete prn - Started on 600mg calcium carbonate Hospital management: Lines: PIV Diet: low sodium with 1.5L fluid restrict Bowel: none GI prophylaxis: PO pantoprazole 40 mg QD DVT prophylaxis: Lovenox Disposition: med surg, bumex drip CODE STATUS: FULL CODE This case was discussed with my attending physician, Dr. Herring, and senior resident, Dr. Kaiser. Abdifatah Peter, PGY1 Attending Provider Attestation/Addendum I have discussed and was present for the essential components of the history, physical examination, diagnosis, and treatment plan with the resident. I agree with the patient's care as documented by the resident and amended herein by me. Quentin Herring DO. Although this document has been carefully reviewed, there may still be some phonetic and other typographical errors. These errors are purely grammatical due to imperfections in the software program and should not be construed in any way to compromise the substance of the patient's medical care during this visit.
[2025-11-01] MEDS: ALBUMIN HUMAN-KJDA 25% IVPB 25 GM/100 ML BTL IV (10:04)
--- NOTE | 2025-11-01 10:20 | ESPR_ITS ---
Documentation for date of: 11/01/25 Subjective Subjective Interval history: Ms. 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 Hoover's office due to worsening anasarca resistant to oral Lasix. Pt was diagnosed with minimal changed disease in childhood and never took medications until Aug 2024, she was started on prednisone (60mg -> transitioned to 40mg QD - > now on 20mg daily) and lasix 40mg daily. Pt states she also adheres to a low salt diet however approximately a month ago she noticed she has been gaining weight and around Thanksgiving she had worsening anasarca extending all the way to her abdomen. Had 25 lb weight gain over 4 weeks. Patient followed up with her stem roller Dr. Hoover who recommended for her to come to the ED to be hospitalized for a Bumex drip. ED course: - Vitals within normal limits - Labs: WBC 11.8, AST 94, ALT 79, alk phos 385, ammonia 35, total serum protein 5.1, serum albumin 2.9 - Imaging: Chest x-ray negative for pneumonia or pulmonary edema, mild elevation of left hemidiaphragm. EKG showed sinus rhythm V rate of 95 and a QTc of 407. - Urine: Random total protein 1292, turbid, 3+ protein, 3+ blood, 17 RBCs, 10 WBCs, 6 squamous epithelial cells - In ED, patient was started on Bumex drip of 2 mg/h, also received acetaminophen 650 Current Medications: ASA 81 mg daily, atorvastatin 40 mg daily, Lasix 40 mg daily, lisinopril 5 mg daily, protonix ER 20 mg daily, prednisone 20 mg daily Allergies: No known drug allergies Patient was admitted for management of worsening anasarca secondary to nephrotic syndrome. Nephrology was consulted for management of above. 10/31/25: Patient was seen and assessed at bedside. Continues to have significant anasarca on exam, continue Bumex 2 mg overnight. Cr 0.6 (baseline 0.5-0.7). Potassium 3.2, replete with oral potassium 40 mEq x2. Magnesium 2.0, replete with 2 g IV magnesium sulfate. Urine protein creatinine ratio elevated at 11g. 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 Start lisinopril 10 mg daily. Strict INOs and daily weights. 11/01/2025 patient resting comfortably. Marked improvement in the edema. Complaining of significant cramping. Electrolytes have been low. After today's Bumex drip will hold for tonight. Will reeval tomorrow and if clinically stable can be discharged on p.o. Bumex or might need another day of drip. Labs and medications reviewed. Review of Systems Review of Systems Narrative Review of Systems: CONSTITUTIONAL: Patient denies any fever, chills. Weight loss noted HEENT: Denies any visual disturbances or hearing problems. CARDIOVASCULAR: Patient denies any chest pain, shortness of breath. ++ swelling in the lower extremities. PULMONARY: Patient denies any shortness of breath, cough. GASTROINTESTINAL: Patient denies any abdominal pain, constipation, nausea, vomiting, diarrhea. GENITOURINARY: Patient denies any urinary symptoms of burning or frequency or hematuria, denies any form in the urine. SKIN: Denies any rash. MUSCULOSKELETAL: Denies any muscular skeletal problems of joint pains. NEUROLOGICAL: Denies any neurological problems of strokes, seizures or confusion. Denies any memory problems. PSYCHIATRIC: Denies any depression or anxiety. LYMPHATICS : No lymphadenopathy Exam Vital Signs Temp Pulse Resp BP Pulse Ox O2 Del Method 36.0 C 80 17 120/86 H 96 Room Air 11/01/25 08:00 11/01/25 08:04 11/01/25 08:00 11/01/25 08:04 11/01/25 08:00 11/01/25 08:00 Narrative Exam Physical Exam General: Awake and in no acute distress. Conversational and non-toxic appearing. HEENT: Normocephalic, atraumatic, mucous membranes moist. Mae faces. Heart: Regular rate and rhythm, normal S1 and S2, no murmurs appreciated. Lungs: Clear to auscultation with no wheezing or crackles. Abdomen: Soft, nondistended, nontender, positive bowel sounds. No guarding or rebound tenderness. Neurologic: Alert and oriented x3, no gross neurological deficit, and patient able to move all 4 extremities. Extremities: 3+ pitting lower extremity edema extending up to abdomen, anasarca. Skin: No rash or ecchymoses. Objective Labs 11/01/25 04:32 11/01/25 12:45 Labs: Laboratory Results - last 24 hr 11/01/25 04:32 WBC 6.6 RBC 4.48 Hgb 13.8 Hct 40.4 MCV 90 MCH 30.8 MCHC 34.2 RDW Std Deviation 40.3 Plt Count 184 Neut % (Auto) 68 Lymph % (Auto) 21 [place] % (Auto) 10 Eos % (Auto) 0 Baso % (Auto) 0 Neut # (Auto) 4.5 Lymph # (Auto) 1.4 [place] # (Auto) 0.6 Eos # (Auto) 0.0 Baso # (Auto) 0.0 Immature Gran # (Auto) 0.03 H Absolute Nucleated RBC 0.00 Immature Gran % 1 H Nucleated RBC % 0 Sodium 142 Potassium 2.3 L* D Chloride 90 L Carbon Dioxide 39.8 H Anion Gap 12 BUN 14 Creatinine 0.7 Estim Creat Clear Calc 148.0 eGFR > 60 BUN/Creatinine Ratio 20 Glucose 113 H Calculated Osmolality 284 Calcium 7.6 L Corrected Calcium 8.4 L Phosphorus 4.3 Magnesium 1.4 L Total Bilirubin 1.1 D AST 25 ALT 29 Alkaline Phosphatase 263 H D Total Protein 5.1 L Albumin 3.0 L Globulin 2.1 L Albumin/Globulin Ratio 1.4 Assessment & Plan Additional Assessment & Plan Additional Plan: Patient is a 40-year-old female past medical history of minimal-change disease presenting to the ED from 10/30/[address] Hoover's office for worsening anasarca resistant to oral Lasix. Admitted to telemetry for management of worsening anasarca secondary to nephrotic syndrome. Nephrology was consulted for management of above. #Minimal change disease (DARYL) #Steroid resistant nephrotic syndrome #Anasarca - Presented to the ED from Dr. Hoover's clinic 10/30 for worsening anasarca secondary to uncontrolled minimal change disease (confirmed on path report 09/2024). Reported 22 lb weight gain within 1 month. No improvement with swelling despite Lasix 40 mg daily at home. - Has been on long course of prednisone but does not appear to be controlling DARYL. Continues to have significant proteinuria on UA (11g protein in urine). 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 - Outpatient, attempted to prescribe cyclosporine but denied due to insurance issues - Started on IV Bumex 2 mg in ED Plan: - Continue Bumex 2 mg/h x10 hrs- IV drip--hold after this bag. Replace electrolytes. Patient had a kidney biopsy in November 2024 which showed minimal-change disease. Was started on high-dose steroids and currently on 20 mg p.o. prednisone. Urine protein/creatinine continues to be greater than 10 g. Last month I added cyclosporin for a steroid resistant nephrotic syndrome. However insurance did not cover. Came back yesterday to my office and noted to help 25 pound weight gain and unable to walk with this shortness of breath in the outpatient setting. Sent her to the hospital for IV diuretics. Patient was started on Bumex drip overnight. Currently seen in medical floor. Will start her on calcineurin inhibitor for steroid resistant nephrotic syndrome. Noted significant hyperlipidemia secondary to nephrotic syndrome-add high potency steroids and NESS inhibitors. Hold off on prednisone. Will need calcineurin inhibitors for 1 year. No need for repeat biopsy. Plan of care discussed with primary team. - Start on atorvastatin 20 mg HS - Start on Lisinopril 10 mg daily to reduce proteinuria and lower glomerular pressure - Strict INOs - Daily weights - Fluid restriction 1500 mL - Low sodium diet - Monitor daily renal panel #Hypokalemia - Potassium, magnesium low - Likely secondary to Bumex drip Plan: - Replete potassium and magnesium judiciously - Keep K >4 and Mg >2 - Monitor daily CMP #Transaminitis #Elevated alk phos #Hyperammonemia #Hypertension #Hypothyroidism #Hyperlipidemia 2/2 DARYL - Defer to primary team for management
[2025-11-01] MEDS: Magnesium Sulfate 2 GM Ivpb 2 GM/50 ML BAG IV ×2 (11:08→13:16)
[2025-11-01] MEDS: PANTOPRAZOLE 40 MG TABLET PO (11:09)
[2025-11-01 13:29] LABS: Albumin, Serum 3.5 gm/dL (3.5-5.0); Anion Gap 11 (7-16); BUN/Creatinine Ratio 17 Ratio (12-20); Blood Urea Nitrogen 15 mg/dL (9-23); Calcium 7.9 mg/dL (8.3-10.6); Calcium (Corrected) 8.3 mg/dL (8.5-10.1); Carbon Dioxide > 40.0 mMol/L (20.0-31.0); Chloride 90 mMol/L (98-107); Creatinine (Component) 0.9 mg/dL (0.6-1.3); Estimated Creatinine Clearance 108.0 mL/min (>60); Glucose 103 mg/dL (74-106); Osmolality,Calculated 282 (275-295); Phosphorous 3.8 mg/dL (2.4-5.1); Potassium 3.0 mMol/L (3.4-5.1); Sodium 141 mMol/L (136-145); eGFR > 60 See Note
[2025-11-01] MEDS: CALCIUM CARBONATE 600 MG TABLET PO (16:29)
[2025-11-01 18:24] LABS: Albumin, Serum 3.3 gm/dL (3.5-5.0); Anion Gap 8 (7-16); BUN/Creatinine Ratio 18 Ratio (12-20); Blood Urea Nitrogen 14 mg/dL (9-23); Calcium 7.9 mg/dL (8.3-10.6); Calcium (Corrected) 8.5 mg/dL (8.5-10.1); Carbon Dioxide 40.0 mMol/L (20.0-31.0); Chloride 92 mMol/L (98-107); Creatinine (Component) 0.8 mg/dL (0.6-1.3); Estimated Creatinine Clearance 121.5 mL/min (>60); Glucose 140 mg/dL (74-106); Magnesium 2.5 mg/dL (1.6-2.6); Osmolality,Calculated 281 (275-295); Phosphorous 3.2 mg/dL (2.4-5.1); Potassium 3.1 mMol/L (3.4-5.1); Sodium 140 mMol/L (136-145); eGFR > 60 See Note
--- NOTE | 2025-11-01 19:08 | PC.NURSE ---
Measured total urine output for patient. For my shift I measured a total of 1850ml and a total of 600ml oral intake with another 100 via IV which was running TKO rate of 30 to dilute potassium infusions.
[2025-11-01] MEDS: ATORVASTATIN CALCIUM 20 MG TABLET PO (21:25)
[2025-11-02] VITALS (11 sets, daily range): BP systolic 98–111; BP diastolic 59–76; PULSE 73–91; RESP 16–96; TEMP 36.1–37.1; O2SAT 95–97; BMI 44.2
--- NOTE | 2025-11-02 02:00 | PC.NURSE ---
okay to give tylenol [address] for headache [address] [place].
[2025-11-02] MEDS: ACETAMINOPHEN 325 MG TABLET 650 MG PO ×2 (02:04→19:52)
[2025-11-02 06:21] LABS: Basophils # (Auto) 0.0 Thou/mm3 (0.0-0.2); Basophils % (Auto) 0 % (0-2.5); Eosinophils # (Auto) 0.1 Thou/mm3 (0.0-0.5); Eosinophils % (Auto) 1 % (0-10); Hematocrit 40.5 % (36.0-46.0); Hemoglobin 13.8 g/dL (12.0-16.0); Immature Granulocytes Auto 0.04 Thou/mm3 (0.00-0.00); Lymphocytes # (Auto) 3.7 Thou/mm3 (1.0-4.8); Lymphocytes % (Auto) 36 % (10-50); Mean Corpuscular HGB Conc 34.1 g/dl (31.0-37.0); Mean Corpuscular Hemoglobin 31.5 pg (25.0-35.0); Mean Corpuscular Volume 93 fL (80-100); Monocytes # (Auto) 0.7 Thou/mm3 (0.0-0.8); Monocytes % (Auto) 7 % (0-12); Neutrophils # (Auto) 5.8 Thou/mm3 (1.8-7.7); Neutrophils % (Auto) 56 % (37-80); Nucleated Red Blood Cell # 0.00 Thou/mm3 (0.00-0.00); Nucleated Red Blood Cell % 0 /100 WBC (0); Platelet Count 198 Thou/mm3 (140-440); RDW Standard Deviation 42.8 fL (36.4-46.3); Red Blood Count 4.38 Miln/mm3 (4.00-5.20); White Blood Count 10.4 Thou/mm3 (3.6-11.0)
[2025-11-02 07:16] LABS: Alanine Aminotransferase 31 U/L (10-49); Albumin, Serum 3.4 gm/dL (3.5-5.0); Albumin/Globulin Ratio 1.8 (1.2-2.2); Alkaline Phosphatase 214 U/L (46-116); Anion Gap 8 (7-16); Aspartate Amino Transferase 30 U/L (0-34); BUN/Creatinine Ratio 17 Ratio (12-20); Bilirubin,Total 1.3 mg/dL (0.3-1.2); Blood Urea Nitrogen 12 mg/dL (9-23); Calcium 8.5 mg/dL (8.3-10.6); Calcium (Corrected) 9.0 mg/dL (8.5-10.1); Carbon Dioxide 38.6 mMol/L (20.0-31.0); Chloride 94 mMol/L (98-107); Creatinine (Component) 0.7 mg/dL (0.6-1.3); Estimated Creatinine Clearance 138.9 mL/min (>60); Globulin 1.9 gm/dL (2.3-3.5); Glucose 89 mg/dL (74-106); Osmolality,Calculated 279 (275-295); Potassium 3.4 mMol/L (3.4-5.1); Sodium 141 mMol/L (136-145); Total Protein 5.3 gm/dL (5.7-8.2); eGFR > 60 See Note
--- NOTE | 2025-11-02 09:06 | ESPR_ITS ---
Documentation for date of: 11/02/25 Subjective Subjective Interval history: Interval history: Ms. 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 Hoover's office due to worsening anasarca resistant to oral Lasix. Pt was diagnosed with minimal changed disease in childhood and never took medications until Aug 2024, she was started on prednisone (60mg -> transitioned to 40mg QD - > now on 20mg daily) and lasix 40mg daily. Pt states she also adheres to a low salt diet however approximately a month ago she noticed she has been gaining weight and around Thanksgiving she had worsening anasarca extending all the way to her abdomen. Had 25 lb weight gain over 4 weeks. Patient followed up with her circulating process inspector Dr. Hoover who recommended for her to come to the ED to be hospitalized for a Bumex drip. ED course: - Vitals within normal limits - Labs: WBC 11.8, AST 94, ALT 79, alk phos 385, ammonia 35, total serum protein 5.1, serum albumin 2.9 - Imaging: Chest x-ray negative for pneumonia or pulmonary edema, mild elevation of left hemidiaphragm. EKG showed sinus rhythm V rate of 95 and a QTc of 407. - Urine: Random total protein 1292, turbid, 3+ protein, 3+ blood, 17 RBCs, 10 WBCs, 6 squamous epithelial cells - In ED, patient was started on Bumex drip of 2 mg/h, also received acetaminophen 650 Current Medications: ASA 81 mg daily, atorvastatin 40 mg daily, Lasix 40 mg daily, lisinopril 5 mg daily, protonix ER 20 mg daily, prednisone 20 mg daily Allergies: No known drug allergies Patient was admitted for management of worsening anasarca secondary to nephrotic syndrome. Nephrology was consulted for management of above. 10/31/25: Patient was seen and assessed at bedside. Continues to have significant anasarca on exam, continue Bumex 2 mg overnight. Cr 0.6 (baseline 0.5-0.7). Potassium 3.2, replete with oral potassium 40 mEq x2. Magnesium 2.0, replete with 2 g IV magnesium sulfate. Urine protein creatinine ratio elevated at 11g. 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 Start lisinopril 10 mg daily. Strict INOs and daily weights. 11/01/2025 patient resting comfortably. Marked improvement in the edema. Complaining of significant cramping. Electrolytes have been low. After today's Bumex drip will hold for tonight. Will reeval tomorrow and if clinically stable can be discharged on p.o. Bumex or might need another day of drip. Labs and medications reviewed. 11/02/25: Patient seen and assessed at bedside. Minimal lower extremity edema on exam. Reports temporary tingling of face with IV potassium, possibly mild infusion reaction. Sodium 141, potassium 3.4, chloride 94, BUN 12, creatinine 0.7, calcium 9.0. Switch from cyclosporin to tacrolimus due to insurance coverage. Start on Bumex 2 mg daily for residual edema, supplement with potassium 20mEq daily. Continue atorvastatin 40 mg, lisinopril 10 mg, and ASA. Discontinue prednisone. Instructed patient to follow up in clinic 1 week after discharge with labs. Exam Vital Signs Temp Pulse Resp BP Pulse Ox O2 Del Method 97.0 F 75 18 110/65 96 Room Air 11/02/25 08:00 11/02/25 08:00 11/02/25 08:00 11/02/25 08:00 11/02/25 08:00 11/02/25 08:00 Narrative Exam Physical Exam General: Awake and in no acute distress. Conversational and non-toxic appearing. HEENT: Normocephalic, atraumatic, mucous membranes moist. Mae faces. Heart: Regular rate and rhythm, normal S1 and S2, no murmurs appreciated. Lungs: Clear to auscultation with no wheezing or crackles. Abdomen: Soft, nondistended, nontender, positive bowel sounds. No guarding or rebound tenderness. Neurologic: Alert and oriented x3, no gross neurological deficit, and patient able to move all 4 extremities. Extremities: 3+ pitting lower extremity edema extending up to abdomen, anasarca. Skin: No rash or ecchymoses. Objective Labs 11/03/25 05:04 11/02/25 04:45 Labs: Laboratory Results - last 24 hr 11/01/25 11/01/25 11/02/25 12:45 17:19 04:45 WBC 10.4 D RBC 4.38 Hgb 13.8 Hct 40.5 MCV 93 MCH 31.5 MCHC 34.1 RDW Std Deviation 42.8 Plt Count 198 Neut % (Auto) 56 Lymph % (Auto) 36 [place] % (Auto) 7 Eos % (Auto) 1 Baso % (Auto) 0 Neut # (Auto) 5.8 Lymph # (Auto) 3.7 [place] # (Auto) 0.7 Eos # (Auto) 0.1 Baso # (Auto) 0.0 Immature Gran # (Auto) 0.04 H Absolute Nucleated RBC 0.00 Immature Gran % 0 Nucleated RBC % 0 Sodium 141 140 141 Potassium 3.0 L D 3.1 L 3.4 Chloride 90 L 92 L 94 L Carbon Dioxide > 40.0 H 40.0 H 38.6 H Anion Gap 11 8 8 BUN 15 14 12 Creatinine 0.9 0.8 0.7 Estim Creat Clear Calc 108.0 121.5 138.9 eGFR > 60 > 60 > 60 BUN/Creatinine Ratio 17 18 17 Glucose 103 140 H 89 D Calculated Osmolality 282 281 279 Calcium 7.9 L 7.9 L 8.5 Corrected Calcium 8.3 L 8.5 9.0 Phosphorus 3.8 3.2 Magnesium 2.5 Total Bilirubin 1.3 H AST 30 ALT 31 Alkaline Phosphatase 214 H D Total Protein 5.3 L Albumin 3.5 D 3.3 L 3.4 L Globulin 1.9 L Albumin/Globulin Ratio 1.8 Quality Measures Quality Measures VTE prophylaxis Assessment & Plan Assessment Current Active Medications: Generic Name Dose Route Start Last Admin Trade Name Raj PRN Reason Stop Dose Admin Acetaminophen 650 mg 10/30/25 21:21 11/02/25 02:04 Acetaminophen 325 Mg Tablet PO 11/29/25 21:20 650 mg Q6H PRN Administration Fever >100.4 Atorvastatin Calcium 20 mg 11/01/25 21:00 11/01/25 21:25 Atorvastatin Calcium 20 Mg Tablet PO 12/01/25 20:59 20 mg HS JOSE Administration Bumetanide 2 mg 11/02/25 09:00 Bumetanide Inj 0.25 Mg/Ml Vial 4 Ml IVP 12/02/25 08:59 QDAY JOSE Calcium Carbonate 600 mg 11/01/25 16:00 11/01/25 16:29 Calcium Carbonate 600 Mg Tablet PO 12/01/25 15:59 600 mg QDAY JOSE Administration Enoxaparin Sodium 40 mg 10/31/25 09:00 11/01/25 08:11 Enoxaparin Sod Inj 40 Mg/0.4 Ml Syringe SC 11/14/25 08:59 Not Given QDAY JOSE Albumin Human 25 gm in 100 mls @ 100 mls/hr 10/30/25 21:31 11/01/25 10:04 Albuminex 25% Ivpb IV 11/02/25 21:30 100 mls/hr QDAY JOSE Administration Lisinopril 10 mg 11/01/25 09:00 11/01/25 08:04 Lisinopril 2.5 Mg Tablet PO 12/01/25 08:59 10 mg QDAY JOSE Administration Ondansetron HCl 4 mg 11/01/25 05:18 11/01/25 06:03 Ondansetron Inj 2 Mg/Ml Inj 2 Ml IVP 12/01/25 05:17 4 mg Q6HR PRN Administration NAUSEA OR VOMITING Protocol Pantoprazole Sodium 40 mg 10/31/25 09:00 11/01/25 11:09 Pantoprazole 40 Mg Tablet PO 11/30/25 08:59 40 mg QDAY JOSE Administration Tacrolimus 4 mg 10/31/25 21:00 11/01/25 21:25 Tacrolimus 1 Mg Capsule PO 11/30/25 20:59 4 mg BID JOSE Administration Plan Patient is a 40-year-old female past medical history of minimal-change disease presenting to the ED from 10/30/[address] Hoover's office for worsening anasarca resistant to oral Lasix. Admitted to telemetry for management of worsening anasarca secondary to nephrotic syndrome. Nephrology was consulted for management of above. #Minimal change disease (DARYL) #Steroid resistant nephrotic syndrome #Anasarca - Presented to the ED from Dr. Hoover's clinic 10/30 for worsening anasarca secondary to uncontrolled minimal change disease (confirmed on path report 09/2024). Reported 22 lb weight gain within 1 month. No improvement with swelling despite Lasix 40 mg daily at home. - Has been on long course of prednisone but does not appear to be controlling DARYL. Continues to have significant proteinuria on UA (11g protein in urine). 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 - Attempted to prescribe cyclosporin outpatient but prescription was denied due to lack of insurance coverage - Started on IV Bumex 2 mg in ED Plan: - Switch cyclosporin to tacrolimus due to insurance coverage, will need to continue for 1 year. No need for repeat biopsy. - Bumex 2 mg PO daily - Discontinue prednisone as has been ineffective - Increase to atorvastatin 40 mg nightly - Lisinopril 10 mg daily to reduce proteinuria and lower glomerular pressure - Fluid restriction 1500 mL - Low sodium diet - Given significant improvement in edema, patient is clear for discharge from nephrology standpoint. Instructed to follow up in clinic 1 week after discharge with renal panel. #Hypokalemia - Potassium, magnesium low - Likely secondary to Bumex drip Plan: - Discharge with potassium supplement 20mEq daily at least - Instructed to eat potassium rich foods (banana or avocado daily) - Follow up outpatient 1 week after discharge with renal panel #Transaminitis #Elevated alk phos #Hyperammonemia #Hypertension #Hypothyroidism #Hyperlipidemia 2/2 DARYL - Defer to primary team for management Thank you for your consultation, please do not hesitate to reach out if you have any question or concern Patient plan of care was discussed with the attending physician, Dr. Hoover. Martha Mayo DO, PGY-1 Attending Provider Attestation/Addendum Patient currently seen and examined with resident physician Dr. Mayo. Note reviewed, agree with findings and recommendations. Patient currently seen in medical floor. Well-known to me from my nephrology clinic. Patient had a kidney biopsy in November 2024 which showed minimal-change disease. Was started on high-dose steroids and currently on 20 mg p.o. prednisone. Urine protein/creatinine continues to be greater than 10 g. Last month I added cyclosporin for a steroid resistant nephrotic syndrome. However insurance did not cover. Came back yesterday to my office and noted to help 25 pound weight gain and unable to walk with this shortness of breath in the outpatient setting. Sent her to the hospital for IV diuretics. Patient was started on Bumex drip overnight. Currently seen in medical floor. Will start her on calcineurin inhibitor for steroid resistant nephrotic syndrome. Noted significant hyperlipidemia secondary to nephrotic syndrome-add high potency steroids and NESS inhibitors. Hold off on prednisone. Will need calcineurin inhibitors for 1 year. No need for repeat biopsy. Plan of care discussed with primary team. Marked improvement in edema with the 2 days of Bumex drip. Continue with IV Bumex today. Possible discharge tomorrow Patient lost 35.2 pounds in the last 48 hours. Patient can be discharged on 2 mg p.o. Bumex, atorvastatin 40 mg p.o. nightly, potassium 20 mg p.o. daily lisinopril 10 mg p.o. daily, tacrolimus 4 mg p.o. twice daily. She is going to follow-up with me in 1 week. Renal panel in 1 week.
[2025-11-02] MEDS: ALBUMIN HUMAN-KJDA 25% IVPB 25 GM/100 ML BTL IV (09:39)
[2025-11-02] MEDS: TACROLIMUS 1 MG CAPSULE 4 MG PO ×2 (09:40→20:00)
[2025-11-02] MEDS: BUMETANIDE INJ 0.25 MG/ML VIAL 4 ML 2 MG IVP (09:40)
[2025-11-02] MEDS: ENOXAPARIN SOD INJ 40 MG/0.4 ML SYRINGE SC (09:41)
[2025-11-02] MEDS: CALCIUM CARBONATE 600 MG TABLET PO (09:41)
[2025-11-02] MEDS: PANTOPRAZOLE 40 MG TABLET PO (09:41)
--- NOTE | 2025-11-02 11:24 | PC.SS ---
Follow up note: IV diuretics. Pt will return home upon dc.
--- NOTE | 2025-11-02 14:55 | ESPR_ITS ---
Documentation for date of: 11/02/25 Subjective Subjective Interval history: No acute overnight events. Patient seen and examined at bedside. Patient reports continued body aches and headache, relieved by Tylenol. Endorses facial flushing following potassium intake. VSS. Notable labs include bicarb at 38 from 40 yesterday, gave acetazolamide 250 mg x 1 today. Continue IV Bumex 2 mg daily and tacrolimus 4 mg BID per nephrology. Patient will need potassium supplementation outpatient per nephrology. Continue atorvastatin 40 mg daily and lisinopril 10 mg daily. Patient is only net negative 1L since admission. Nursing order to restrict outside food. Anticipate discharge within the next 1 to 2 days if net output satisfactory. Exam Vital Signs Temp Pulse Resp BP Pulse Ox O2 Del Method 97.6 F 78 17 98/66 96 Room Air 11/02/25 12:00 11/02/25 12:00 11/02/25 12:00 11/02/25 12:00 11/02/25 12:00 11/02/25 12:00 Narrative Exam GENERAL: AOx3, no acute distress, obese HEENT: mucous membranes moist, bilateral sclera anicteric CARDIOVASCULAR: regular rate and rhythm, S1/S2 present, no murmurs appreciated PULMONARY: clear to auscultation bilaterally, no rales/rhonchi/wheezes ABDOMINAL: soft, non-tender,no rebound/guarding, bowel sounds present, abdominal anascarca EXTREMITIES: 3+ pitting edema BLE up to abdomen SKIN: warm and dry, intact, no rashes NEURO: CN II-XII grossly intact, no focal deficits, alert, following commands Objective Labs 11/02/25 04:45 11/02/25 04:45 Labs: Laboratory Results - last 24 hr 11/01/25 11/02/25 17:19 04:45 WBC 10.4 D RBC 4.38 Hgb 13.8 Hct 40.5 MCV 93 MCH 31.5 MCHC 34.1 RDW Std Deviation 42.8 Plt Count 198 Neut % (Auto) 56 Lymph % (Auto) 36 [place] % (Auto) 7 Eos % (Auto) 1 Baso % (Auto) 0 Neut # (Auto) 5.8 Lymph # (Auto) 3.7 [place] # (Auto) 0.7 Eos # (Auto) 0.1 Baso # (Auto) 0.0 Immature Gran # (Auto) 0.04 H Absolute Nucleated RBC 0.00 Immature Gran % 0 Nucleated RBC % 0 Sodium 140 141 Potassium 3.1 L 3.4 Chloride 92 L 94 L Carbon Dioxide 40.0 H 38.6 H Anion Gap 8 8 BUN 14 12 Creatinine 0.8 0.7 Estim Creat Clear Calc 121.5 138.9 eGFR > 60 > 60 BUN/Creatinine Ratio 18 17 Glucose 140 H 89 D Calculated Osmolality 281 279 Calcium 7.9 L 8.5 Corrected Calcium 8.5 9.0 Phosphorus 3.2 Magnesium 2.5 Total Bilirubin 1.3 H AST 30 ALT 31 Alkaline Phosphatase 214 H D Total Protein 5.3 L Albumin 3.3 L 3.4 L Globulin 1.9 L Albumin/Globulin Ratio 1.8 Quality Measures Quality Measures VTE prophylaxis Assessment & Plan Assessment Current Active Medications: Generic Name Dose Route Start Last Admin Trade Name Freq PRN Reason Stop Dose Admin Acetaminophen 650 mg 10/30/25 21:21 11/02/25 02:04 Acetaminophen 325 Mg Tablet PO 11/29/25 21:20 650 mg Q6H PRN Administration Fever >100.4 Atorvastatin Calcium 20 mg 11/01/25 21:00 11/01/25 21:25 Atorvastatin Calcium 20 Mg Tablet PO 12/01/25 20:59 20 mg HS JOSE Administration Bumetanide 2 mg 11/02/25 09:00 11/02/25 09:40 Bumetanide Inj 0.25 Mg/Ml Vial 4 Ml IVP 12/02/25 08:59 2 mg QDAY JOSE Administration Calcium Carbonate 600 mg 11/01/25 16:00 11/02/25 09:41 Calcium Carbonate 600 Mg Tablet PO 12/01/25 15:59 600 mg QDAY JOSE Administration Enoxaparin Sodium 40 mg 10/31/25 09:00 11/02/25 09:41 Enoxaparin Sod Inj 40 Mg/0.4 Ml Syringe SC 11/14/25 08:59 40 mg QDAY JOSE Administration Albumin Human 25 gm in 100 mls @ 100 mls/hr 10/30/25 21:31 11/02/25 09:39 Albuminex 25% Ivpb IV 11/02/25 21:30 100 mls/hr QDAY JOSE Administration Lisinopril 10 mg 11/01/25 09:00 11/02/25 09:41 Lisinopril 2.5 Mg Tablet PO 12/01/25 08:59 10 mg QDAY JOSE Administration Ondansetron HCl 4 mg 11/01/25 05:18 11/01/25 06:03 Ondansetron Inj 2 Mg/Ml Inj 2 Ml IVP 12/01/25 05:17 4 mg Q6HR PRN Administration NAUSEA OR VOMITING Protocol Pantoprazole Sodium 40 mg 10/31/25 09:00 11/02/25 09:41 Pantoprazole 40 Mg Tablet PO 11/30/25 08:59 40 mg QDAY JOSE Administration Tacrolimus 4 mg 10/31/25 21:00 11/02/25 09:40 Tacrolimus 1 Mg Capsule PO 11/30/25 20:59 4 mg BID JOSE Administration Plan Madhavi Anand 40F pmhx significant for minimal-change disease (steroid resistant, diagnosed 2023), HTN, and HLD presented to [facility] ED on 10/30 for anasarca, admitted for minimal change disease failing outpatient tx. #Minimal change disease/Steroid resistant nephrotic syndrome #Diffuse anasarca secondary to above #Hypoalbuminemia secondary to above Diagnosed 2023 and started treatment this November on pred [address] Hoover who advised the patient to present to the hospital for a Bumex drip after seeing the patient in the office earlier the day of presentation. Patient presented with diffuse anasarca with 25 pound weight gain over the past month. Serum total protein and albumin is low, urine random total protein 1292, characteristic of minimal-change disease. s/p albumin 25g in ED mid way through first Bumex drip. s/p acetazolamide 250 mg x2 (11/01, 11/02) Plan: - IV Bumex 2 mg QD - Strict I&O, daily weights, 1.5L fluid restriction, low sodium diet, no outside food - Nephrology consulted, recs appreciated: tacrolimus 4mg BID, avoid steroids, will need potassium supplementation of at least 20 mEq on discharge - Atorvastatin 40 mg - F/u urine studies #Transaminitis, likely congestive 2/2 anascarca from minimal change disease, improving #MAFLD Patient presented with AST 94, ALT 79, alk phos 385 and ammonia 35 with no abd pain. Likely 2/2 vascular congestion and fluid overload. Liver US shows cirrhosis with fatty infiltration. Plan: - Diuresis as above - Recommend outpatient follow up with PCP regarding MAFLD #Hypertension On admission SBP 159/59 and is on home Lisinopril 5 mg QD. Plan: - Lisinopril 10 mg QD for minimal change disease #Hyperlipidemia 10/30 lipid panel trig 410, cholesterol 327, LDL TNP, HDL 88. However on 10/27, trig 227, alba 248, LDL 112 and HDL 8. a1c 5.7. Plan: - Atorvastatin 40 mg QD as above #Electrolyte abnormalities #Hypokalemia / diuresis #Hypocalcemia Plan: - Replete prn - Started on 600mg calcium carbonate Hospital management: Lines: PIV Diet: low sodium with 1.5L fluid restrict Bowel: none GI prophylaxis: PO pantoprazole 40 mg QD DVT prophylaxis: Lovenox Disposition: med surg, IV bumex CODE STATUS: FULL CODE This case was discussed with my attending physician, Dr. Herring, and senior resident, Dr. Duckworth. Deb Mayo DO Internal Medicine PGY-1 Senior Resident Attestation: The patient reported improvement on her swelling. However, her overnight fluid net negative is not at goal. There was a suspicion of eating outside food and drink, and nurse were made aware of this. Will continue to diuresis her. Likely discharge in 1 to 2 days if her anasarca significantly improves. I discussed with and supervised the international sales representative physician involved in the care of this patient. I personally saw and examined the patient and discussed the assessment and plan with the entire medicine team, including my attending. I agree with the assessment and plan as documented above. Ko Duckworth MD PGY3 Internal Medicine Attending Provider Attestation/Addendum I have discussed and was present for the essential components of the history, physical examination, diagnosis, and treatment plan with the resident. I agree with the patient's care as documented by the resident and amended herein by me. Quentin Herring DO. Although this document has been carefully reviewed, there may still be some phonetic and other typographical errors. These errors are purely grammatical due to imperfections in the software program and should not be construed in any way to compromise the substance of the patient's medical care during this visit. I have discussed and was present for the essential components of the history, physical examination, diagnosis, and treatment plan with the resident. I agree with the patient's care as documented by the resident and amended herein by me. Quentin Herring DO. Although this document has been carefully reviewed, there may still be some phonetic and other typographical errors. These errors are purely grammatical due to imperfections in the software program and should not be construed in any way to compromise the substance of the patient's medical care during this visit. Patient seen and evaluated this AM. In short, 40-year-old female admitted for fluid overload secondary to steroid resistant nephrotic syndrome/minimal-change disease. No acute events overnight, I/O 2120/1650. Patient still demonstrating +2-3 pitting edema on her bilateral lower extremities. Significant labs include a bicarb of 38. Will continue albumin for now, Bumex 2 mg IV daily and lisinopril 10 mg p.o. daily as well as tacrolimus 4 mg p.o. twice daily which was started this admission. Patient fluid restricted to 1.5 L daily, will likely discharge tomorrow on 11/03 pending further clinical improvement.
--- NOTE | 2025-11-02 19:36 | PC.NURSE ---
Called Dr. Camarillo to let him know that pt requested pain medicine other than tylenol, pt stated that the day shift doctors told her that they would give her a strongest pain medicine, per Dr. Camarillo, day shift doctors reported to him that tylenol worked for pt to relieve the pain. Dr. Camarillo stated that pt needs to get tyleol and wait 2/3 hrs to see if it works, if it does not work, to let him know.
[2025-11-02] MEDS: ATORVASTATIN CALCIUM 20 MG TABLET PO (20:00)
[2025-11-03] VITALS (7 sets, daily range): BP systolic 100–116; BP diastolic 59–71; PULSE 69–96; RESP 18–97; TEMP 36.2–36.7; O2SAT 93–97
[2025-11-03 06:01] LABS: Basophils # (Auto) 0.0 Thou/mm3 (0.0-0.2); Basophils % (Auto) 1 % (0-2.5); Eosinophils # (Auto) 0.1 Thou/mm3 (0.0-0.5); Eosinophils % (Auto) 2 % (0-10); Hematocrit 38.0 % (36.0-46.0); Hemoglobin 12.4 g/dL (12.0-16.0); Immature Granulocytes Auto 0.04 Thou/mm3 (0.00-0.00); Lymphocytes # (Auto) 2.4 Thou/mm3 (1.0-4.8); Lymphocytes % (Auto) 33 % (10-50); Mean Corpuscular HGB Conc 32.6 g/dl (31.0-37.0); Mean Corpuscular Hemoglobin 30.5 pg (25.0-35.0); Mean Corpuscular Volume 94 fL (80-100); Monocytes # (Auto) 0.5 Thou/mm3 (0.0-0.8); Monocytes % (Auto) 7 % (0-12); Neutrophils # (Auto) 4.1 Thou/mm3 (1.8-7.7); Neutrophils % (Auto) 56 % (37-80); Nucleated Red Blood Cell # 0.00 Thou/mm3 (0.00-0.00); Nucleated Red Blood Cell % 0 /100 WBC (0); Platelet Count 144 Thou/mm3 (140-440); RDW Standard Deviation 42.6 fL (36.4-46.3); Red Blood Count 4.06 Miln/mm3 (4.00-5.20); White Blood Count 7.3 Thou/mm3 (3.6-11.0)
[2025-11-03 06:41] LABS: Alanine Aminotransferase 30 U/L (10-49); Albumin, Serum 3.2 gm/dL (3.5-5.0); Albumin/Globulin Ratio 1.7 (1.2-2.2); Alkaline Phosphatase 183 U/L (46-116); Anion Gap 9 (7-16); Aspartate Amino Transferase 31 U/L (0-34); BUN/Creatinine Ratio 15 Ratio (12-20); Bilirubin,Total 1.0 mg/dL (0.3-1.2); Blood Urea Nitrogen 9 mg/dL (9-23); Calcium 8.6 mg/dL (8.3-10.6); Calcium (Corrected) 9.2 mg/dL (8.5-10.1); Carbon Dioxide 32.6 mMol/L (20.0-31.0); Chloride 101 mMol/L (98-107); Creatinine (Component) 0.6 mg/dL (0.6-1.3); Estimated Creatinine Clearance 159.3 mL/min (>60); Globulin 1.9 gm/dL (2.3-3.5); Glucose 100 mg/dL (74-106); Osmolality,Calculated 283 (275-295); Potassium 3.5 mMol/L (3.4-5.1); Sodium 143 mMol/L (136-145); Total Protein 5.1 gm/dL (5.7-8.2); eGFR > 60 See Note
[2025-11-03] MEDS: BUMETANIDE INJ 0.25 MG/ML VIAL 4 ML 2 MG IVP (08:35)
[2025-11-03] MEDS: TACROLIMUS 1 MG CAPSULE 4 MG PO (08:36)
[2025-11-03] MEDS: ENOXAPARIN SOD INJ 40 MG/0.4 ML SYRINGE SC (08:36)
[2025-11-03] MEDS: CALCIUM CARBONATE 600 MG TABLET PO (08:36)
[2025-11-03] MEDS: PANTOPRAZOLE 40 MG TABLET PO (08:37)
--- NOTE | 2025-11-03 09:13 | PD.RESPRO ---
Documentation for date of: 11/03/25 Subjective Subjective Interval history: Ms. Anand is a 40-year-old female past medical history of Protenuria , anasarca-,minimal-change nephropathy (biopsy-proven 11/2024) sent from her cloud services architect Dr. Hoover's office due to worsening anasarca resistant to oral Lasix. Pt was diagnosed with minimal changed disease in childhood and never took medications until Aug 2024, she was started on prednisone (60mg -> transitioned to 40mg QD -> now on 20mg daily) and lasix 40mg daily. Pt states she also adheres to a low salt diet however approximately a month ago she noticed she has been gaining weight and around Thanksgiving she had worsening anasarca extending all the way to her abdomen. Had 25 lb weight gain over 4 weeks. Patient followed up with her cloud services architect Dr. Hoover who recommended for her to come to the ED to be hospitalized for a Bumex drip. ED course: - Vitals within normal limits - Labs: WBC 11.8, AST 94, ALT 79, alk phos 385, ammonia 35, total serum protein 5.1, serum albumin 2.9 - Imaging: Chest x-ray negative for pneumonia or pulmonary edema, mild elevation of left hemidiaphragm. EKG showed sinus rhythm V rate of 95 and a QTc of 407. - Urine: Random total protein 1292, turbid, 3+ protein, 3+ blood, 17 RBCs, 10 WBCs, 6 squamous epithelial cells - In ED, patient was started on Bumex drip of 2 mg/h, also received acetaminophen 650 Current Medications: ASA 81 mg daily, atorvastatin 40 mg daily, Lasix 40 mg daily, lisinopril 5 mg daily, protonix ER 20 mg daily, prednisone 20 mg daily Allergies: No known drug allergies Patient was admitted for management of worsening anasarca secondary to nephrotic syndrome. Nephrology was consulted for management of above. 10/31/25: Patient was seen and assessed at bedside. Continues to have significant anasarca on exam, continue Bumex 2 mg overnight. Cr 0.6 (baseline 0.5-0.7). Potassium 3.2, replete with oral potassium 40 mEq x2. Magnesium 2.0, replete with 2 g IV magnesium sulfate. Urine protein creatinine ratio elevated at 11g. 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 Start lisinopril 10 mg daily. Strict INOs and daily weights. 11/01/2025 patient resting comfortably. Marked improvement in the edema. Complaining of significant cramping. Electrolytes have been low. After today's Bumex drip will hold for tonight. Will reeval tomorrow and if clinically stable can be discharged on p.o. Bumex or might need another day of drip. Labs and medications reviewed. 11/02/25: Patient seen and assessed at bedside. Minimal lower extremity edema on exam. Reports temporary tingling of face with IV potassium, possibly mild infusion reaction. Sodium 141, potassium 3.4, chloride 94, BUN 12, creatinine 0.7, calcium 9.0. Switch from cyclosporin to tacrolimus due to insurance coverage. Start on Bumex 2 mg daily for residual edema, supplement with potassium 20mEq daily. Continue atorvastatin 40 mg, lisinopril 10 mg, and ASA. Discontinue prednisone. Instructed patient to follow up in clinic 1 week after discharge with labs. 11/03/25: Patient seen and assessed at bedside. Based on weight, patient has lost about 15 kg (135 to 120 kg) and has overall recorded net negative urine output -2.9L. Spoke to pharmacist who reports that tacrolimus is covered by patient's insurance. Potassium 3.5, creatinine stable. Patient is medically stable for discharge from nephrology standpoint, discharge with tacrolimus 4 mg BID and medications as above (Bumex, potassium, atorvastatin, lisinopril, ASA). Instructed patient to follow up in clinic 1 week after discharge with labs. Exam Vital Signs Temp Pulse Resp BP Pulse Ox O2 Del Method 97.1 F 76 18 106/59 L 97 Room Air 11/03/25 08:00 11/03/25 08:36 11/03/25 08:00 11/03/25 08:36 11/03/25 08:00 11/03/25 08:00 Narrative Exam Physical Exam General: Awake and in no acute distress. Conversational and non-toxic appearing. HEENT: Normocephalic, atraumatic, mucous membranes moist. Mae faces. Heart: Regular rate and rhythm, normal S1 and S2, no murmurs appreciated. Lungs: Clear to auscultation with no wheezing or crackles. Abdomen: Soft, nondistended, nontender, positive bowel sounds. No guarding or rebound tenderness. Neurologic: Alert and oriented x3, no gross neurological deficit, and patient able to move all 4 extremities. Extremities: 1+ pitting lower extremity edema extending up to thighs. Skin: No rash or ecchymoses. Objective Labs 11/03/25 05:04 11/03/25 05:04 Labs: Laboratory Results - last 24 hr 11/03/25 05:04 WBC 7.3 RBC 4.06 Hgb 12.4 Hct 38.0 MCV 94 MCH 30.5 MCHC 32.6 RDW Std Deviation 42.6 Plt Count 144 D Neut % (Auto) 56 Lymph % (Auto) 33 [place] % (Auto) 7 Eos % (Auto) 2 Baso % (Auto) 1 Neut # (Auto) 4.1 Lymph # (Auto) 2.4 [place] # (Auto) 0.5 Eos # (Auto) 0.1 Baso # (Auto) 0.0 Immature Gran # (Auto) 0.04 H Absolute Nucleated RBC 0.00 Immature Gran % 1 H Nucleated RBC % 0 Sodium 143 Potassium 3.5 Chloride 101 Carbon Dioxide 32.6 H Anion Gap 9 BUN 9 Creatinine 0.6 Estim Creat Clear Calc 159.3 eGFR > 60 BUN/Creatinine Ratio 15 Glucose 100 Calculated Osmolality 283 Calcium 8.6 Corrected Calcium 9.2 Total Bilirubin 1.0 AST 31 ALT 30 Alkaline Phosphatase 183 H D Total Protein 5.1 L Albumin 3.2 L Globulin 1.9 L Albumin/Globulin Ratio 1.7 Quality Measures Quality Measures VTE prophylaxis Assessment & Plan Assessment Current Active Medications: Generic Name Dose Route Start Last Admin Trade Name Freq PRN Reason Stop Dose Admin Acetaminophen 650 mg 10/30/25 21:21 11/02/25 19:52 Acetaminophen 325 Mg Tablet PO 11/29/25 21:20 650 mg Q6H PRN Administration Fever >100.4 Atorvastatin Calcium 20 mg 11/01/25 21:00 11/02/25 20:00 Atorvastatin Calcium 20 Mg Tablet PO 12/01/25 20:59 20 mg HS JOSE Administration Bumetanide 2 mg 11/02/25 09:00 11/03/25 08:35 Bumetanide Inj 0.25 Mg/Ml Vial 4 Ml IVP 12/02/25 08:59 2 mg QDAY JOSE Administration Calcium Carbonate 600 mg 11/01/25 16:00 11/03/25 08:36 Calcium Carbonate 600 Mg Tablet PO 12/01/25 15:59 600 mg QDAY JOSE Administration Enoxaparin Sodium 40 mg 10/31/25 09:00 11/03/25 08:36 Enoxaparin Sod Inj 40 Mg/0.4 Ml Syringe SC 11/14/25 08:59 40 mg QDAY JOSE Administration Lisinopril 10 mg 11/01/25 09:00 11/03/25 08:36 Lisinopril 2.5 Mg Tablet PO 12/01/25 08:59 10 mg QDAY JOSE Administration Ondansetron HCl 4 mg 11/01/25 05:18 11/01/25 06:03 Ondansetron Inj 2 Mg/Ml Inj 2 Ml IVP 12/01/25 05:17 4 mg Q6HR PRN Administration NAUSEA OR VOMITING Protocol Pantoprazole Sodium 40 mg 10/31/25 09:00 11/03/25 08:37 Pantoprazole 40 Mg Tablet PO 11/30/25 08:59 40 mg QDAY JOSE Administration Tacrolimus 4 mg 10/31/25 21:00 11/03/25 08:36 Tacrolimus 1 Mg Capsule PO 11/30/25 20:59 4 mg BID JOSE Administration Plan Patient is a 40-year-old female past medical history of minimal-change disease presenting to the ED from 10/30/[address] Hoover's office for worsening anasarca resistant to oral Lasix. Admitted to telemetry for management of worsening anasarca secondary to nephrotic syndrome. Nephrology was consulted for management of above. #Minimal change disease (DARYL) #Steroid resistant nephrotic syndrome #Anasarca - Presented to the ED from Dr. Hoover's clinic 10/30 for worsening anasarca secondary to uncontrolled minimal change disease (confirmed on path report 09/2024). Reported 22 lb weight gain within 1 month. No improvement with swelling despite Lasix 40 mg daily at home. - Has been on long course of prednisone but does not appear to be controlling DARYL. Continues to have significant proteinuria on UA (11g protein in urine). 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 - Attempted to prescribe cyclosporin outpatient but prescription was denied due to lack of insurance coverage - Started on IV Bumex 2 mg in ED Plan: - Switch cyclosporin to tacrolimus 4 mg BID due to insurance coverage, will need to continue for 1 year. Spoke with pharmacist, should be covered by patient insurance. No need for repeat biopsy. - Bumex 2 mg PO daily - Discontinue prednisone as has been ineffective - Atorvastatin 40 mg nightly - Lisinopril 10 mg daily to reduce proteinuria and lower glomerular pressure - Fluid restriction 1500 mL - Low sodium diet - Given significant improvement in edema, patient is clear for discharge from nephrology standpoint. Instructed to follow up in clinic 1 week after discharge with renal panel. #Hypokalemia - Potassium, magnesium low - Likely secondary to Bumex drip Plan: - Discharge with potassium supplement 20mEq daily - Instructed to eat potassium rich foods (banana or avocado daily) - Follow up outpatient 1 week after discharge with renal panel #Transaminitis #Elevated alk phos #Hyperammonemia #Hypertension #Hypothyroidism #Hyperlipidemia 2/2 DARYL - Defer to primary team for management Thank you for your consultation, please do not hesitate to reach out if you have any question or concern Patient plan of care was discussed with the attending physician, Dr. Hoover. Martha Mayo DO, PGY-1 Attending Provider Attestation/Addendum Patient currently seen and examined with resident physician Dr. Mayo. Note reviewed, agree with findings and recommendations. Patient currently seen in medical floor. Well-known to me from my nephrology clinic. Patient had a kidney biopsy in November 2024 which showed minimal-change disease. Was started on high-dose steroids and currently on 20 mg p.o. prednisone. Urine protein/creatinine continues to be greater than 10 g. Last month I added cyclosporin for a steroid resistant nephrotic syndrome. However insurance did not cover. Came back yesterday to my office and noted to help 25 pound weight gain and unable to walk with this shortness of breath in the outpatient setting. Sent her to the hospital for IV diuretics. Patient was started on Bumex drip overnight. Currently seen in medical floor. Will start her on calcineurin inhibitor for steroid resistant nephrotic syndrome. Noted significant hyperlipidemia secondary to nephrotic syndrome-add high potency steroids and NESS inhibitors. Hold off on prednisone. Will need calcineurin inhibitors for 1 year. No need for repeat biopsy. Plan of care discussed with primary team. Marked improvement in edema with the 2 days of Bumex drip. Continue with IV Bumex today. Possible discharge tomorrow Patient lost 35.2 pounds in the last 48 hours. Patient can be discharged on 2 mg p.o. Bumex, atorvastatin 40 mg p.o. nightly, potassium 20 mg p.o. daily lisinopril 10 mg p.o. daily, tacrolimus 4 mg p.o. twice daily. She is going to follow-up with me in 1 week. Renal panel in 1 week.
--- NOTE | 2025-11-03 14:38 | ESDS_ITS ---
Planned Discharge Date 11/03/25 DS: Providers Provider Date of admission: 10/30/25 21:21 Primary care physician: Candis Penny NP Admitting Provider: Parvin Mike MD Attending Provider on Admission: Parvin Mike MD Consults: 10/30/25 18:43 Consult to Nephrology Stat Comment: Consulting Provider: Audra Hoover 10/30/25 21:44 Consult to Nephrology Routine Comment: Nephrotic Syndrome Consulting Provider: Audra Hoover Attending Provider on DC: Kalia Guzman MD Discharging Provider: Kalia Guzman MD DS: Diagnosis Problem List Completed Was Problem List Reviewed/Reconciled?: Yes Hospital Course Hospital Course Hospital course: Summary: Madhavi Anand 40F pmhx significant for minimal-change disease (steroid resistant, diagnosed 2023), HTN, and HLD presented to [facility] ED on 10/30 for anasarca, admitted for minimal change disease failing outpatient diuretic tx. patient presents a 25 pound weight gain over 1 month and diffuse anascarca. She was diagnosed with minimal-change disease steroid resistant in 2023 and started treatment in 11/2024. Patient follows Dr. Hoover who advised patient to present to hospital for Bumex drip after office visit. Patient received Bumex drip as well as IV Bumex with vast improvement in anasarca. Patient was also started on tacrolimus inpatient as cyclosporine not available in pharmacy. Patient also to start atorvastatin 40 mg and lisinopril 10 mg for renal protection. Of note, patient presented with transaminitis likely secondary to vascular congestion and fluid overload with resolution on discharge. However liver ultrasound showed MASLD. On discharge, patient is hemodynamically stable, labs and vitals reviewed to be stable and patient is ready to be discharged home. Imaging: Liver US shows cirrhosis with fatty infiltration. Discharge Recommendations: - Please take all medications as prescribed - START Bumex 2 mg daily with potassium supplementation at least 20 mEq daily - START atorvastatin 40 mg daily and lisinopril 10 mg daily for renal protection - START tacrolimus 4 mg twice daily - STOP Lasix - Continue all home medications except as above - Please follow up with your PCP within one week of discharge - Please follow up with your third cook within one week of discharge - If your symptoms worsen, please seek immediate medical attention and return to your nearest emergency room. - If you do not have a PCP, you may follow up at the [facility] at [address], [facility] [address], Hospital Diagnoses: #Minimal change disease/Steroid resistant nephrotic syndrome #Diffuse anasarca secondary to above #Hypoalbuminemia secondary to above #Transaminitis, likely congestive 2/2 anascarca from minimal change disease, improving #MAFLD #Hypertension #Hyperlipidemia #Electrolyte abnormalities #Hypokalemia 2/2 diuresis #Hypocalcemia Plan of care discussed with attending Dr. Guzman, and PGY-3 Dr. Duckworth. Deb Mayo, DO Internal Medicine, PGY-1 Senior Resident Attestation: I discussed with and supervised the engineer internship physician involved in the care of this patient. I personally saw and examined the patient and discussed the assessment and plan with the entire medicine team, including my attending. I agree with the discharge plan as documented above. Ko Duckworth MD PGY3 Internal Medicine Time Spent with Patient Time attestation: Total time spent providing and/or coordinating discharge services: Time spent: Greater than 30 minutes Exam Vital Signs Temp Pulse Resp BP Pulse Ox O2 Del Method 97.3 F 96 18 101/71 93 L Room Air 11/03/25 12:00 11/03/25 12:00 11/03/25 12:00 11/03/25 12:00 11/03/25 12:11/03/25 12:00 Narrative Exam GENERAL: AOx3, no acute distress, obese HEENT: mucous membranes moist, bilateral sclera anicteric CARDIOVASCULAR: regular rate and rhythm, S1/S2 present, no murmurs appreciated PULMONARY: clear to auscultation bilaterally, no rales/rhonchi/wheezes ABDOMINAL: soft, non-tender,no rebound/guarding, bowel sounds present, no abdominal anascarca EXTREMITIES: 2+ pitting edema BLE at feet and 1+ BLE SKIN: warm and dry, intact, no rashes NEURO: CN II-XII grossly intact, no focal deficits, alert, following commands Discharge Plan Plan Patient Disposition: HOME (Self Care) Patient condition on transfer: Stable Care Plan Goals: Discharge Recommendations: - Please take all medications as prescribed - START tacrolimus 4 mg twice daily - START Bumex 2 mg daily and potassium supplement at least 20 mEq a day while taking Bumex - START atorastatin 40 mg daily and lisinopril 10 mg daily - STOP Lasix 40 mg daily - STOP steroids like prednisone - Continue all home medications except as above - Please follow up with your PCP within one week of discharge - Follow up with Dr. Hoover within 1 week - If your symptoms worsen, please seek immediate medical attention and return to your nearest emergency room. - If you do not have a PCP, you may follow up at the [facility] at [address] [place] [address] [address] [id number], Prescriptions/Referrals Prescriptions/Med Rec: New lisinopril 10 mg tablet 10 mg PO QDAY 30 Days Qty: 30 2RF tacrolimus [Prograf] 1 mg capsule 4 mg PO Q12H 30 Days Qty: 240 1RF bumetanide 2 mg tablet 2 mg PO QDAY 30 Days Qty: 30 2RF potassium chloride [K-Tab] 20 mEq tablet extended release 20 meq PO QDAY 30 Days Qty: 30 0RF Continued atorvastatin 40 mg tablet 40 mg PO QPM 30 Days Qty: 30 1RF pantoprazole [Protonix] 20 mg tablet,delayed release (DR/EC) 20 mg PO QDAY Qty: 30 1RF aspirin 81 mg capsule 81 mg PO QDAY Qty: 30 6RF Discontinued hydroxyzine HCl 25 mg tablet 25 mg PO QHS Qty: 30 1RF lisinopril 5 mg tablet 5 mg PO QDAY 30 Days Qty: 30 1RF cyclosporine 100 mg capsule 100 mg PO QDAY Qty: 30 3RF furosemide [Lasix] 40 mg tablet 40 mg PO QDAY Qty: 30 1RF prednisone 20 mg tablet 20 mg PO QDAY Patient Comments: I only take 20mg not 40mg Referrals: [facility],Candis Calle NP [Primary Care Provider, Family Practice] Audra Hoover MD [Physician, Nephrology] Patient/Caregiver Discharge Instructions Education Materials: Your Body's Response to Anxiety, Anxiety Disorders Tx Therapy Print Language: Telugu Stand Alone Forms: [employer] Award Info., Patient Portal Info Letter Discharge Order Discharge Orders: Discharge (Routine); Ordered 11/03/25 Ordered By: Joni Kaiser Quality Discharge Quality Measures VTE prophylaxis MD Attestestation MD Attestation I discussed with and supervised the resident physician who took care of this patient. I agree with the assessment and discharge plan as above. Continue tacrolimus and follow-up with Dr. Hoover. Return to the emergency room for recurrent symptoms
[2025-11-05 23:32] LABS: Albumin, Random Urine 93 %; Alpha 1 Globulin, Random Urine 1 %; Alpha 2 Globulin, Random Urine 1 %; Beta Globulin, Random Urine 4 %; Gamma Globulin, Random Urine 1 %; Protein,Total,Random Urine 124 mg/dL (5-24); Protein/Creatinine Ratio 14091 mg/g creat (24-184)
[2025-11-06 06:24] LABS: Creatinine, Random Urine 9 mg/dL (20-275); Protein/Creatinine Ratio mg/mg 14.091 (0.024-0.184)
== END 2025-11-03 14:03 | disposition home or self-care (01) | DRG 462 ==
LOC: SERX 19:04 → SERHOLD 21:32 → S3SX 10-31 00:14
PROVIDERS: Internal Medicine; Physician Assistant; Admitting Provider Student in an Organized Health Care Education/Training Program; Emergency Provider Emergency Medicine; PCP Nurse Practitioner Family; Visit Provider Internal Medicine
DX: N04.0 Nephrotic syndrome with minor glomerular abnormality (principal); E03.9 Hypothyroidism, unspecified; E87.70 Fluid overload, unspecified; I10 Essential (primary) hypertension; E78.5 Hyperlipidemia, unspecified; E88.09 Other disorders of plasma-protein metabolism, not elsewhere classified; E87.6 Hypokalemia; K76.0 Fatty (change of) liver, not elsewhere classified; E83.51 Hypocalcemia; E87.3 Alkalosis; K74.60 Unspecified cirrhosis of liver; T50.2X5A Adverse effect of carbonic-anhydrase inhibitors, benzothiadiazides and other diuretics, initial encounter; Z59.71 Insufficient health insurance coverage; Z79.899 Other long term (current) drug therapy; T38.0X5A Adverse effect of glucocorticoids and synthetic analogues, initial encounter; E66.9 Obesity, unspecified; Z68.41 Body mass index [BMI] 40.0-44.9, adult
CPT/HCPCS: 36415; 71045; 76705; 80053; 80061; 80069; 80307; 81001; 81025; 82140; 82570; 83735; 83880; 84100; 84156; 84166; 84439; 84443; 84484; 85025; 93005; 93225; 96365; 99283; J1120; J1650; J2405; J3475; J3480; J3490; J7507; J7512; J7515; P9047; A9270

== ENCOUNTER → 2025-10-30 | Outpatient (BNVA) | payer MEDICAID, SELFPAY | END | disposition home or self-care (01) | PROVIDERS: PCP Internal Medicine; Referring Provider Internal Medicine; Visit Provider Internal Medicine | DX: R60.1 Generalized edema (principal); R74.01 Elevation of levels of liver transaminase levels; E72.20 Disorder of urea cycle metabolism, unspecified; I10 Essential (primary) hypertension; E03.9 Hypothyroidism, unspecified; E78.5 Hyperlipidemia, unspecified | CPT/HCPCS: 99213 ==